=== PATIENT | female | born 1945 | race Caucasian/White ===

== ENCOUNTER 2019-08-08 02:34 | Emergency (ER) | payer MEDICARE, OTHER ==
[2019-08-08 03:22] LABS: #Basophils 0.2 thou/uL (0.0-0.2); #Eosinphils 0.3 thou/uL (0.0-0.7); #Monocytes 0.3 thou/uL (0.11-0.59); #Neutrophils 4.9 thou/uL (1.40-6.50); %Basophils 2.7 % (0.0-1.0); %Eosinophils 4.4 % (0.0-10.0); %Lymphocytes 15.5 % (21.0-51.0); %Neutrophils 72.5 % (42.0-75.0); Hemoglobin 11.1 g/dL (12.0-16.0); MDiff Complete? YES; Macrocytosis MODERATE=16-30 cells (100X) (0-5/hpf); Mean Corpuscular HGB CONC 33.2 g/dL (32.0-36.0); Mean Corpuscular Hemoglobin 35.8 pg (27.0-31.0); Mean Platelet Volume 9.9 fL (7.4-10.4); Platelet Count 86 thou/uL (130-400); Platelet Morphology Comment Appears Decreased; RBC Distribution Width 13.5 % (11.5-14.5); Red Blood Cell (RBC) Count 3.09 mill/uL (4.20-5.40); White Blood Cell (WBC) Count 6.7 thou/uL (4.8-10.8)
[2019-08-08 03:33] LABS: ALT (SGPT) 10 U/L (8-55); AST (SGOT) 41 U/L (5-34); Albumin 2.5 g/dL (3.4-4.8); Alkaline Phosphatase 61 U/L (40-110); Anion Gap 15 mmol/L (10-20); BUN (Urea Nitrogen) 21 mg/dL (9.8-20.1); Bilirubin, Total 0.5 mg/dL (0.2-1.2); Calc. Creatinine Clearance 0 mL/min (70-130); Calcium 7.9 mg/dL (7.8-10.44); Carbon Dioxide 20 mmol/L (23-31); Chloride 104 mmol/L (98-107); Estimated GFR-MDRD 28; Globulin 3.1 g/dL (2.4-3.5); Glucose 85 mg/dL (83-110); Potassium 3.5 mmol/L (3.5-5.1); Protein, Total 5.6 g/dL (6.0-8.3); Sodium 135 mmol/L (136-145)
[2019-08-08 03:34] LABS: Bilirubin Negative (Negative); Blood, Urine Negative (Negative); Clarity Clear (Clear); Glucose, Urine (Dipstick) Normal (Negative); Leukocyte Negative Leu/uL (Negative); Nitrite Negative (Negative); Protein, Urine (Dipstick) Negative (Neg-Trace); Urobilinogen Normal mg/dL (Less than 2)
--- NOTE | 2019-08-08 07:58 | RAD ---
XR Chest 1 View Portable HISTORY: Weakness and lethargy COMPARISON: 03/24/2016 FINDINGS: The heart size is normal. The lungs are well expanded without focal areas of consolidation, pneumothorax or pleural effusions. IMPRESSION: No radiographic evidence of acute cardiopulmonary process.
== END 2019-08-08 04:16 | disposition home or self-care (01) ==
LOC: ERS 02:34
DX: I12.9 Hypertensive chronic kidney disease with stage 1 through stage 4 chronic kidney disease, or unspecified chronic kidney disease (principal); N18.9 Chronic kidney disease, unspecified; E78.5 Hyperlipidemia, unspecified; E78.00 Pure hypercholesterolemia, unspecified; R53.1 Weakness; F17.210 Nicotine dependence, cigarettes, uncomplicated; Z79.899 Other long term (current) drug therapy
CPT/HCPCS: 36415; 71045; 80053; 81003; 83880; 84484; 85025; 93005

== ENCOUNTER 2019-08-14 22:12 | Inpatient (IN) | payer MEDICARE, MEDICAID ==
--- NOTE | 2019-08-14 23:21 | CT ---
Exam: Head CT without contrast HISTORY: Intracranial hemorrhage. Status post fall. COMPARISON: 08/14/2019 FINDINGS: Hemorrhage: Redemonstration of an extra-axial hematoma along the left frontal convexity, unchanged an d measuring 0.7 cm. Overlying scalp hematoma is noted. No new parenchymal hemorrhage. Brain parenchyma: Stable atrophy. Cortical mcnally-white matter differentiation is preserved.Chronic sma ll vessel ischemic changes of the white matter are redemonstrated. Ventricular system: Stable Calvarium: Intact. Sinuses and mastoid air cells: Unchanged IMPRESSION: Essentially stable small extra-axial hematoma along the left frontal convexity. No significant change in size. No evidence of new intracranial hemorrhage. Continued surveillance is recommended. Transcribed Date/Time: 08/14/2019 11:28 PM
[2019-08-14 23:45] LABS: CKMB 2.1 ng/mL (0-6.6)
[2019-08-15] MEDS ORDERED: Sodium Chloride 0.9% 1,000 ML IV SCH (02:20)
[2019-08-15] MEDS ORDERED: Ondansetron ODT 4 MG TAB SL PRN (02:20)
[2019-08-15] MEDS ORDERED: Ondansetron PF 4 MG/2 ML Vial IVP PRN ×2 (02:20→03:35)
[2019-08-15] MEDS ORDERED: Ondansetron ODT 4 MG TAB PO PRN (03:35)
[2019-08-15] MEDS: Sodium Chloride 0.9% 1,000 ML IV SCH ×2 (03:57→16:25)
--- NOTE | 2019-08-15 08:36 | HP ---
PRIMARY CARE PROVIDER: Previously, Nicki Gonzalez MD CHIEF COMPLAINT: Generalized weakness and skin nodules. HISTORY OF PRESENT ILLNESS: This is a 74-year-old female, who initially presented to [facility] in [place], [place], complaining of generalized weakness, fatigue, and loss of appetite over the last 2 to 3 weeks. The patient was evaluated in the emergency room on 08/14/2019 and released home. The patient was told to follow up with her primary care provider, however, the patient states her symptoms progressed with profound weakness, inability to get out of a chair and ambulate and with concern for multiple nodules on her neck and abdomen. The patient denied any headache, visual disturbance, recent fall, or injury. The patient states her appetite has decreased with some loss of weight, which is difficult to quantitate. The patient denies any exposure history, recent travel, unilateral swelling or weakness. The patient states she quit smoking approximately 2 weeks prior to this evaluation. In the emergency room, the patient underwent general metabolic evaluation showing elevated troponin I. The patient was also noted with electrolyte abnormality as well as a low carbon dioxide level. The patient was also noted with elevated creatinine above baseline values concerning for acute on chronic kidney disease. The patient was noted with mild elevation to troponin I, receiving aspirin and Lovenox for suspected non-ST elevation myocardial infarction with mild elevation to troponin I. The patient also underwent CT imaging of the brain showing small left-sided subdural hematoma. The patient also underwent CT imaging of the chest, abdomen, and pelvis in the emergency room showing diffuse and extensive lymphadenopathy with questionable right breast edema and mass. Recommendations are for further evaluation including Medical Oncology evaluation. PAST MEDICAL HISTORY: 1. Chronic kidney disease, stage 2 to 3. 2. History of ischemic colitis. 3. Deconditioning. 4. Diverticulosis. 5. Hyperlipidemia. 6. Hypertension. PAST SURGICAL HISTORY: Status post hysterectomy. CURRENT MEDICATIONS: 1. Amlodipine 5 mg p.o. daily. 2. Clonidine 0.2 mg p.o. b.i.d. 3. Lovastatin 20 mg p.o. q.a.m. 4. Metoprolol tartrate 25 mg p.o. b.i.d. 5. Protonix 40 mg p.o. daily. ALLERGIES: TO HE INHIBITORS. FAMILY HISTORY: No inheritable diseases per the patient report. SOCIAL HISTORY: Resides in the [place], [place] area. No current alcohol, tobacco, or illicit drug use. Quit smoking approximately 2 weeks prior to this evaluation. History of prior marijuana and methamphetamine use. Minimally ambulatory due to profound weakness. No reported falls. REVIEW OF SYSTEMS: CONSTITUTIONAL: Negative for weight loss or gain, ability to conduct usual activities. SKIN: Negative for rash, itching. EYES: Negative for double vision, pain. ENT/MOUTH: Negative for nose bleeding, neck stiffness, pain, tenderness. CARDIOVASCULAR: Negative for palpitations, dyspnea on exertion, orthopnea. RESPIRATORY: Negative for shortness of breath, wheezing, cough, hemoptysis, fever or night sweats. GASTROINTESTINAL: Negative for poor appetite, abdominal pain, heartburn, nausea, vomiting, constipation, or diarrhea. GENITOURINARY: Negative for urgency, frequency, dysuria, nocturia. MUSCULOSKELETAL: Negative for pain, swelling. NEUROLOGIC/PSYCHIATRIC: Negative for anxiety, depression. ALLERGY/IMMUNOLOGIC: Negative for skin rash, bleeding tendency. Otherwise, negative except as stated per HPI. PHYSICAL EXAMINATION: VITAL SIGNS: On admission, blood pressure 90/56, pulse 66, respiratory rate 22, O2 saturation 97% on room air, and temperature 97.7 degrees Fahrenheit. GENERAL APPEARANCE: This is a 74-year-old female, pale, ill appearing, responsive to questions. HEENT: Pupils are equal, round, and reactive to light and accommodation. Extraocular muscles are intact. No scleral icterus. No conjunctival injection. Nares patent. OP is clear. Oral mucosa dry. NECK: Supple. Bilateral cervical adenopathy with large lymphadenopathy palpated at the base of the occiput to the anterior and lateral chains. No meningeal signs noted. CHEST: Diminished breath sounds in the bases bilaterally. CARDIOVASCULAR: S1 and S2 without noted murmur, rub, or gallop. ABDOMEN: Rounded with diffuse tenderness to palpation. No palpable mass. No rebound or guarding noted. EXTREMITIES: Warm and dry with fair turgor. No clubbing, cyanosis, or asymmetric edema appreciated. Pulses palpable distally at the dorsalis pedis, posterior tibial, and popliteal arteries bilaterally. Capillary refill less than 2 seconds. NEUROLOGIC: Cranial nerves II through XII are grossly intact. No focal or lateralizing signs appreciated. PERTINENT LABORATORY AND X-RAY FINDINGS: Sodium 135, potassium 4.1, chloride 101, CO2 of 16, BUN 29, creatinine 2.11, estimated GFR 23, glucose 99, magnesium level 1.9, AST 49, ALT of 17, and alkaline phosphatase 65. Troponin I ranged between 0.122 to 0.148. BNP 252, previously noted 235 on 08/08/2019. CBC showed a white blood cell count of 9.4, hemoglobin 12, hematocrit 36, MCV 104, and platelet count 71. PT 13.5, INR 1.0. Urinalysis dated 08/14/2019, positive for protein and ketones. Portable chest x-ray dated 08/14/2019, showed small right pleural effusion. CT of the chest, abdomen, and pelvis dated 08/14/2019, showed extensive lymphadenopathy in the chest, abdomen, and pelvis. The diminished changes in the right breast concerning for inflammatory breast cancer. Small right-sided pleural effusion. Please see dictated report for full details. CT of the brain without contrast dated 08/14/2019, showed left frontal extra-axial hematoma with minimal mass effect on the left frontal lobe. ASSESSMENT AND PLAN: 1. Subdural hemorrhage. Appears acute on initial CT imaging. Neurosurgery consulted, however, will evaluate the patient in the a.m. Neurosurgery recommending serial CT imaging of the brain to monitor for progression. Appears clinically spontaneous. 2. Elevated troponin I. Suspect demand ischemic state in the context of acute kidney injury. 3. Acute kidney injury on chronic kidney disease. Continue intravenous normal saline at 100 mL/h. Avoid nephrotoxic agents and limit contrast exposure. Repeat creatinine in the a.m. 4. Left frontal subdural hematoma. Questionable spontaneous hematoma. No history of falls. Neurosurgical consultation for assistance and monitoring. Likely, no acute surgical intervention. 5. Diffuse lymphadenopathy. Findings concerning for potential metastatic process versus lymphoma. Consult Medical Oncology Service for any further recommendations and evaluation. Likely, the patient would benefit from lymph node biopsy. 6. Deconditioning. PT and OT evaluation for functional assessment. Continue regular diet. 7. Prophylaxis. SCDs while in bed. Pepcid 20 mg p.o. b.i.d. 8. Code status is full. Surrogate medical decision maker, not identified. Job ID: [id number]
[2019-08-15] MEDS: Famotidine 20 MG TAB PO SCH (09:25)
--- NOTE | 2019-08-15 10:32 | PDOC.HOSPP ---
- Subjective Subjective: Lying down comfortably in bed. Denies any headache, visual changes, focal changes. States lymph nodes started becoming enlarged on neck for the last couple of weeks. - Objective Vital Signs & Weight: Vital Signs (12 hours) Temp 08/15/19 08:00 98.1 F 08/15/19 04:00 98.0 F 08/15/19 02:15 97.7 F Weight Weight 145 lb 4.554 oz Most Recent Monitor Data Heart Rate from ECG 67 NIBP 106/63 NIBP BP-Mean 77 Respiration from ECG 21 SpO2 96 I&O: 08/14/19 08/15/19 08/16/19 06:59 06:59 06:59 Intake Total 295 280 Output Total 0 380 Balance 295 -100 Additional Labs: Laboratory Results 08/14/19 22:54 CK-MB (CK-2) 2.1 Troponin I 0.122 H Radiology Reviewed by me: Yes EKG Reviewed by me: Yes Hospitalist ROS - Review of Systems Constitutional: denies: fever, chills, sweats, weakness, malaise, other Eyes: denies: pain, vision change, conjunctivae inflammation, eyelid inflammation, redness, other ENT: denies: ear pain, ear discharge, nose pain, nose discharge, nose congestion , mouth pain, mouth swelling, throat pain, throat swelling, other Respiratory: denies: cough, dry, shortness of breath, hemoptysis, SOB with excertion, pleuritic pain, sputum, wheezing, other Cardiovascular: denies: chest pain, palpitations, orthopnea, paroxysmal noc. dyspnea, edema, light headedness, other Gastrointestinal: denies: nausea, vomiting, abdominal pain, diarrhea, constipation, melena, hematochezia, other Genitourinary: denies: dysuria, frequency, incontinence, hematuria, retention, other Musculoskeletal: denies: neck pain, shoulder pain, arm pain, back pain, hand pain, leg pain, foot pain, other - Medication Medications: Active Medications Generic Name Dose Route Start Last Admin Trade Name Freq PRN Reason Stop Dose Admin Famotidine 20 mg 08/15/19 09:00 08/15/19 09:25 Pepcid PO 20 mg QAM JONG Administration Sodium Chloride 1,000 mls @ 100 mls/hr 08/15/19 03:35 08/15/19 03:57 Normal Saline 0.9% IV Not Given .Q10H [facility] Medication Instructions Recorded Confirmed Type Amlodipine Besylate [amLODIPine 10 mg PO DAILY 03/24/16 08/15/19 History Besylate] Lovastatin 20 mg PO QAM-WM 03/24/16 08/15/19 History Metoprolol Tartrate 25 mg PO BID 03/24/16 08/15/19 History cloNIDine HCl 0.2 mg PO BID 03/24/16 08/15/19 History [place]-3 Fatty Acids/Fish Oil [Fish 1 cap PO DAILY 08/15/19 08/15/19 History Oil 1,000 mg Capsule] hydrALAZINE [Apresoline] 25 mg PO TID 08/15/19 08/15/19 History - Exam General Appearance: NAD, awake alert Eye: PERRL, anicteric sclera ENT: normocephalic atraumatic, no oropharyngeal lesions, moist mucosa Neck: supple, symmetric, no JVD, no thyromegaly, no carotid bruit Neck - other findings: Palpable bilateraly lymphadenopathy in cervical superior and posterior bindu Heart: RRR, no murmur, no gallops, no rubs, normal peripheral pulses Respiratory: CTAB, no wheezes, no rales, no ronchi, normal chest expansion, no tachypnea, normal percussion Gastrointestinal: soft, non-tender, non-distended, normal bowel sounds, no palpable masses, no hepatomegaly, no splenomegaly, no bruit Extremities: no cyanosis, no clubbing, no edema Skin: normal turgor, no lesions, no rashes Neurological: cranial nerve grossly intact, normal sensation to touch, no weakness, no focal deficits, no new deficit Musculoskeletal: normal tone, normal strength, no muscle wasting Psychiatric: normal affect, normal behavior, A&O x 3 Hosp A/P (1) Subdural hemorrhage Code(s): I62.00 - NONTRAUMATIC SUBDURAL HEMORRHAGE, UNSPECIFIED Status: Acute (2) Elevated troponin Code(s): R79.89 - OTHER SPECIFIED ABNORMAL FINDINGS OF BLOOD CHEMISTRY Status : Acute Plan: Likely related to renal failure, no active chest pain at this time (3) Lymphadenopathy Code(s): R59.1 - GENERALIZED ENLARGED LYMPH NODES Status: Acute Plan: New onset for the past few weeks, located along chest, abdomen, and cervical chains (CT RECORD IN THE CHART) (4) Acute kidney injury superimposed on CKD Code(s): N17.9 - ACUTE KIDNEY FAILURE, UNSPECIFIED; N18.9 - CHRONIC KIDNEY DISEASE, UNSPECIFIED Status: Acute (5) Anemia in chronic kidney disease Code(s): N18.9 - CHRONIC KIDNEY DISEASE, UNSPECIFIED; D63.1 - ANEMIA IN CHRONIC KIDNEY DISEASE Status: Acute (6) Hypertension Code(s): I10 - ESSENTIAL (PRIMARY) HYPERTENSION Status: Chronic (7) Atrial fibrillation with RVR Code(s): I48.91 - UNSPECIFIED ATRIAL FIBRILLATION Status: Acute - Plan Outside Ct scan for Nayely reviewed by me, shows extensive lymphadenopathy in the chest, abdomen, and pelvis. Will see if this report can be uploaded to our record system There is mention of edematous change in the right breast, which is concerning for inflammatory breast CA. CT head showsing extra-axial 0.7cm hematoma Pending further evaluation by oncology and neurosurgery. Will likely need some sort lymph node biopsy, but given her recent hematoma on CT head will wait and continue to monitor Resume home amlodipine Continue IVF Digoxin given for afib, consult to cardiology for further reccs. Disposition: Continue monitoring in CCU. Appreciate reccs from neurosurg and oncology.
[2019-08-15] MEDS ORDERED: Digoxin 0.5 MG/2 ML AMP SLOW IVP SCH (12:15)
[2019-08-15] MEDS: Acetaminophen 500 MG TAB PO PRN (12:41)
--- NOTE | 2019-08-15 14:26 | PRG ---
DATE OF SERVICE: 08/15/2019 This is a 30-minute initial visit note, in which 30 minutes were spent reviewing the imaging record, evaluation, examination of the patient, and formulation of plan. Greater than 50% time was spent in counseling on Maylin Jon. Ms. Jon is a very pleasant 74-year-old woman. She reports no history of recent trauma to the head, although she presents with a left frontal subgaleal hematoma that is tender to touch and underlying small left frontal convexity acute subdural hematoma. This was stable on repeat head CTs yesterday. I had requested a CT this morning although it is not back yet at this time. There is no underlying skull fracture. The patient again denies trauma, but I am not quite convinced of her historical accuracy. She is neurologically intact, but appears to be quite frail. There are other issues that are being evaluated based on CT scan of the chest, abdomen, pelvis yesterday as the patient was found to have extensive lymphadenopathy throughout her chest and abdomen, and also changes in the right breast worrisome for breast cancer. I suppose the lesion in her scalp could be breast metastasis if that is what we are dealing with. MRI of the brain without and with contrast would help in this regard, although it certainly has the appearance, given the underlying subdural hematoma of recent trauma. At this point, she has atrial fibrillation with rapid ventricular response. She is not currently hemodynamically stable enough for MRI. We will hold off on any further imaging. Job ID: [id number]
[2019-08-15] MEDS ORDERED: Sodium Chloride 0.9% 500 ML IVPB SCH (14:30)
--- NOTE | 2019-08-15 14:37 | CON ---
DATE OF CONSULTATION: REASON FOR EVALUATION: Possible subdural hematoma. HISTORY OF PRESENT ILLNESS: Maylin Jon was seen at the [facility] yesterday after progressive weeks of decreased appetite and decreased energy, feelings of imbalance and unintended weight loss. Head CT examination of the brain was done along with other imaging and there was a collection of material in the subdural space anterior to the left frontal lobe as well as a subgaleal collection of tissue or fluid under the left frontal scalp. Neurosurgery was consulted and she was sent to [facility] for further evaluation. Overnight, she has remained at her neurological baseline. Although, she got a dose of Lovenox at [facility]. She has not had any blood thinners since. Overnight, her vital signs do not reveal any fever. Her blood pressures have been in the 80s to 100s. On examination, Ms. Jon is wide awake. She answers questions appropriately. She remembers why she came to the hospital. She remembers her name and the year, her age, and where she lives. Cognitive function is relatively well preserved and her speech is fluent. I do not appreciate any dysarthria or dysphasia. I do not appreciate any cranial neuropathies. Although, there is a diffused and generalized weakness. There is no lateralized weakness. There is no pronator drift. There is no neglect. I did not get her up to walk. She does perform alternating rapid motions smoothly with both hands. IMAGING FINDINGS: I reviewed CT imaging of the brain and there is no change between the outside CT scan at 7:00 p.m. and one done in our hospital at 11:00 p.m. In fact, the collection of tissue and/or fluid might be slightly smaller, although I do not think it is. The subgaleal collection is the same. A CT examination of the chest, abdomen, and pelvis shows diffuse lymphadenopathy in the neck, in the supraclavicular and infraclavicular space, in the chest, in the mediastinum, in the abdomen, in the pelvis and inflammatory changes in the breast suggestive of the possibility of inflammatory breast cancer. IMPRESSION: 1. Subdural collection of tissue/fluid. 2. Diffuse metastatic cancer with poor prognosis. I do not believe that Ms. Jon has a subdural hematoma. She gives no history of trauma. She is tender over the mass under her scalp, but it is not ecchymotic as though she had recently bumped her head. I believe the subgaleal mass and the subdural collection of tissue or metastases from an inflammatory breast cancer. Breast cancer is one (like prostate cancer) that metastasizes to the dura from [id number]. I do not see any intraparenchymal lesions. There has been no change even with the administration of Lovenox and no history of recent trauma. Given the diffuse nature of this cancer, I think the prognosis is poor, but I will defer to the oncologist. Whatever systemic therapy is offered for her ought to treat dural-based metastasis as it is not the same as the parenchymal metastasis regarding the blood-brain barrier. Further, I think radiation therapy could be palliative as well. I do not believe any neurosurgical intervention would enhance her life. Please feel free to call back with questions. Job ID: [id number]
--- NOTE | 2019-08-15 15:47 | CON ---
DATE OF CONSULTATION: 08/15/2019 This is a 70 minutes time, of that time, greater than 50% was spent with the patient and/or the patient's unit in the hospital. HISTORY OF PRESENT ILLNESS: This is a 74-year-old female, who was admitted yesterday with increasing weakness and had a knot on her left temporal area. She does not remember falling and actually does not have any bruises around the area. She says she has been feeling weak for 2 to 3 weeks. She had a CT scan done showing diffuse adenopathy in her abdomen, a possible suppurative breast mass on the right. PAST MEDICAL HISTORY: 1. Chronic kidney disease. 2. Ischemic colitis. 3. Deconditioning. 4. Diverticulosis. 5. Hyperlipidemia. 6. Hypertension. PAST SURGICAL HISTORY: Hysterectomy. MEDICATIONS: Prior to admission; 1. Amlodipine. 2. Klonopin. 3. Lovastatin. 4. Metoprolol. 5. Protonix. ALLERGIES: HE INHIBITORS. FAMILY MEDICAL HISTORY: Unremarkable. SOCIAL HISTORY: Quit smoking 2 weeks ago. Has history of marijuana and methamphetamine use in the past, not currently using. REVIEW OF SYSTEMS: Remarkable for weakness. No nausea, vomiting, hematemesis, melena, hematochezia, hematuria, or dysuria. PHYSICAL EXAMINATION: VITAL SIGNS: Temperature 98.1, pulse 70, blood pressure 106/63, and O2 saturation 96%. HEENT: She has a golf ball size knot in left occipital-temporal region. NECK: No adenopathy or JVD. Pupils are reactive. Tongue midline. LUNGS: Clear. CARDIAC: S1 and S2. Regular. ABDOMEN: Soft. EXTREMITIES: No edema. Moves all 4 extremities without difficulty. LABORATORY DATA: Troponin 0.122. White blood cell count 9.4, hematocrit 36.2, and platelet count 71. INR 1.0. Sodium 135, potassium 4.1, chloride 101, CO2 of 16, anion gap 18, BUN 29, creatinine 2.1, glucose 99, AST 49, and ALT 17. Troponin 0.122. Albumin 2.8. Urinalysis shows some ketones in the urine. ASSESSMENT: 1. Possible fall with injury to the head with small subdural hematoma. 2. Diffuse lymphadenopathy. 3. Thrombocytopenia. 4. Mild metabolic acidosis. 5. Severe protein-calorie malnutrition. PLAN: Basically supportive with further workup per Internal Medicine. From my standpoint, she can transfer out to the floor. No pulmonary recommendations at this time. Job ID: [id number]
[2019-08-15] MEDS: Dronedarone HCl 400 MG TAB PO SCH (17:45)
--- NOTE | 2019-08-15 19:16 | CON ---
DATE OF CONSULTATION: REASON FOR CONSULTATION: Atrial fibrillation. HISTORY OF PRESENT ILLNESS: Please refer to Dr. Michell Reddy's for full consultation for details. Briefly, Ms. Jon re-presented with weakness and fatigue. She was found to have likely dural mass present. This was initially felt to be consistent with a subdural hematoma, but was refuted by Neurosurgery. She was also found to have significant lymphadenopathy and likely breast cancer. She has developed paroxysmal atrial fibrillation. During my visit, she was in sinus rhythm. PHYSICAL EXAMINATION: GENERAL: Patient is a pleasant woman, who is in no acute distress. The patient appears her stated age. VITAL SIGNS: Blood pressure 96/56, pulse 68, temperature afebrile. NEUROLOGIC: The patient is alert and oriented x3 with no focal neurologic deficits. HEENT: Sclerae without icterus. Mouth has moist mucous membranes with normal pallor. NECK: No JVD. Carotid upstroke brisk. No bruits bilaterally. LUNGS: Clear to auscultation with unlabored respirations. BACK: No scoliosis or kyphosis. CARDIAC: Regular rate and rhythm with normal S1 and S2. No S3 or S4 noted. No significant rubs, murmurs, thrills, or gallops noted throughout the precordium. PMI is not displaced. There is no parasternal heave. ABDOMEN: Soft, nontender, nondistended. No peritoneal signs present. No hepatosplenomegaly. No abnormal striae. EXTREMITIES: 2+ femoral and 2+ dorsalis pedis pulses. No cyanosis, clubbing, or edema. SKIN: No gross abnormalities. LABORATORY DATA: Peak troponin 0.12. IMPRESSION: 1. Paroxysmal atrial fibrillation. 2. Widespread cancer of unknown etiology, likely breast. 3. Elevated troponin. RECOMMENDATIONS: Ms. Jon'bishop increased troponin likely secondary to demand ischemia. This is a type 2 [place]. We would recommend Multaq 400 mg p.o. b.i.d. We will hold anticoagulation therapy until further discussions with Dr. Carcamo. Prognosis does appear poor given the above. Job ID: [id number]
[2019-08-15] MEDS: Metoprolol Tartrate 25 MG TAB PO SCH (21:08)
--- NOTE | 2019-08-15 22:14 | CON ---
DATE OF CONSULTATION: HISTORY OF PRESENT ILLNESS: A 74-year-old female presented with a history of several weeks of increasing weakness, fatigue, and weight loss. In the outside emergency department, she was found to have diffuse lymphadenopathy with concern for inflammatory breast cancer found on CT. She was additionally noted to have a subdural collection on head CT, and Neurosurgery has been consulted. They seem to believe this is not a subdural hematoma and is rather metastatic changes. We were consulted for management of atrial fibrillation. Today, the patient has been in atrial fibrillation with RVR with rate up to 138 recorded. She is currently in normal sinus rhythm and seems to fluctuate. Current rate is 70. She was given one dose of digoxin earlier today in addition to a 500 mL bolus. The patient denies any feelings of palpitations, chest pain, nausea, vomiting, difficulty breathing, or shortness of breath. She notes feeling tired and weak. PAST MEDICAL HISTORY: Difficult to obtain from patient, but on review of medical records, 1. Hypertension. 2. Hyperlipidemia. 3. Deconditioning. 4. Chronic kidney disease. 5. History of ischemic colitis. 6. Peripheral vascular disease. SURGICAL HISTORY: Hysterectomy. ALLERGIES: HE INHIBITORS. FAMILY HISTORY: Unremarkable. SOCIAL HISTORY: Prior smoker, quit 3 weeks ago. Former marijuana and methamphetamine use. Denies alcohol use. REVIEW OF SYSTEMS: Noted as above, reviewed and otherwise negative. PHYSICAL EXAMINATION: VITAL SIGNS: Blood pressure 87/54, heart rate 70, respiratory rate 20, O2 saturation 95% on room air. GENERAL: Well-developed woman, in no acute distress, weak. HEENT: Normocephalic, atraumatic, lymphadenopathy palpable. HEART: Regular rate and rhythm, no murmur. RESPIRATORY: Clear to auscultation bilaterally. EXTREMITIES: No peripheral edema or cyanosis. LABORATORY: BNP of 251, troponin 0.122, creatinine 2.11. ASSESSMENT AND PLAN: Paroxysmal atrial fibrillation. The patient appears to be intermittently going in and out of atrial fibrillation. Continue metoprolol b.i.d. In addition, we will add Multaq twice daily as well. I will continue to monitor for hypotension. Echocardiogram has just been completed and will be reviewed. In regard to anticoagulation, we will not start at this time considering questionable subdural collection. We will continue to follow the patient throughout hospitalization. This patient was seen and evaluated by Dr. Sow and is in agreement and plan as noted above. Job ID: [id number]
--- NOTE | 2019-08-15 22:59 | CON ---
DATE OF CONSULTATION: 08/15/2019 REASON FOR CONSULT: Lymphadenopathy and possible breast cancer. HISTORY OF PRESENT ILLNESS: Ms. Jon is a pleasant 74-year-old female, who presented to the [facility] ER with generalized weakness. She underwent a chest, abdomen, and pelvis in the ER. She had an enlarged right paratracheal lymph node measuring 1.9 x 0.8 cm. There was a right necrotic supraclavicular lymph node measuring 2.4 x 4.1 cm. She had right axillary lymph nodes. She had diffuse edema involving her right breast. She had a small left lower lobe nodule, some right hilar lymphadenopathy. She also had lymphadenopathy throughout her abdomen and pelvis. She underwent a brain CT as she had a palpable nodule on her left scalp. This was a small extra-axial hematoma along the left frontal convexity. She was admitted here for hematoma and generalized weakness. Neurosurgery was consulted. The patient states she did hit her head six or seven months ago on a corner of her bed, and she thinks that is where her knot on her head came from. She admits that her breast has been hurting her for the last month or so. She quit smoking three weeks ago because she did not like the taste of it any longer. She states she has lost about 7 pounds in the last several months. Her last mammogram was five years ago. She has had a colonoscopy in the past, she does not remember how long ago that was. The patient is in the ICU on evaluation. She denies any complaints at this time other than weakness. PAST MEDICAL HISTORY: 1. Chronic kidney disease. 2. History of colitis. 3. Diverticulitis. 4. Hyperlipidemia. 5. Hypertension. 6. History of alcohol use. 7. History of tobacco use. PAST SURGICAL HISTORY: Hysterectomy. ALLERGIES: TO HE INHIBITORS. HOME MEDICATIONS: 1. Amlodipine. 2. Clonidine. 3. Hydralazine. 4. Lovastatin. 5. Metoprolol. FAMILY HISTORY: No history of cancer in her immediate family. SOCIAL HISTORY: Single, has 4 children. She says she is estranged from them. Quit smoking three weeks ago. Quit drinking alcohol 3 years ago. No illicit drug use. REVIEW OF SYSTEMS: A 10-point review of systems is negative except for noted in HPI. PHYSICAL EXAMINATION: VITAL SIGNS: Temperature is 98.0, pulse is 70, respiratory rate 20, blood pressure is 87/54. She is 95% on 2L. GENERAL: This is an elderly-appearing female in no acute distress. HEENT: She has a left frontal mass. Her pupils are equal and reactive to light. NECK: She has palpable supraclavicular lymph nodes in right neck region. CV: Regular rate and rhythm. LUNGS: Clear anterior. ABDOMEN: Soft and nontender. Bowel sounds are positive. EXTREMITIES: There is no clubbing or cyanosis. SKIN: Her right breast is edematous with peu d'orange skin changes. There is no palpable mass with clear margins. Left breast is soft. No skin changes. NEUROLOGIC: Nonfocal. LYMPH: She has right supraclavicular and right axillary palpable lymph nodes. PERTINENT LABS AND X-RAYS: Current WBCs are 9.4, hemoglobin 11.6, hematocrit 36.2, platelet count is 71,000, neutrophils 94%, 1% lymphocytes, PT is 13.5, INR is 1. Sodium 135, potassium 4.1, chloride 101, CO2 is 16, BUN is 29, creatinine 2.11, calcium 8.9, magnesium 1.9, bilirubin 0.45, AST is 49, ALT is 17, alkaline phosphatase is 65. Troponin is 0.122. BNP is 251.8. Serum total protein is 5.9, albumin 2.8, globulin 3.1. Urine showed 4+ bacteria. Radiology per HPI. ASSESSMENT: 1. Right supraclavicular and axillary lymph nodes with skin changes of her right breast, worrisome for inflammatory breast cancer. 2. Lymphadenopathy, worrisome for lymphoma. 3. Thrombocytopenia likely secondary to malignancy. 4. Subdural hematoma, stable. DISCUSSION: The patient is aware of the findings of diffuse lymphadenopathy that are worrisome for malignancy. We discussed tissue biopsy of lymph node and treatment. She understands that if this is a breast cancer, it may require chemotherapy. She is not interested in IV chemotherapy but will consider oral treatment. She would like a biopsy. If she is hormone receptor positive, she could get anastrozole orally. Ibrance may also be an option. Case discussed with Dr. Hatfield. Consult with a general surgeon for biopsy of a lymph node. We will return once tissue diagnosis is established. Thank you for the consult. Job ID: [id number] [facility]
[2019-08-16 04:03] LABS: #Lymphocytes 0.9 thou/uL (1.20-3.40); #Monocytes 0.2 thou/uL (0.11-0.59); #Neutrophils 9.1 thou/uL (1.40-6.50); %Basophils 0.4 % (0.0-1.0); %Eosinophils 0.3 % (0.0-10.0); %Lymphocytes 8.7 % (21.0-51.0); %Monocytes 1.7 % (0.0-10.0); %Neutrophils 88.9 % (42.0-75.0); Hemoglobin 9.4 g/dL (12.0-16.0); Mean Corpuscular HGB CONC 32.9 g/dL (32.0-36.0); Mean Corpuscular Hemoglobin 34.8 pg (27.0-31.0); Mean Platelet Volume 9.4 fL (7.4-10.4); Platelet Count 73 thou/uL (130-400); RBC Distribution Width 13.4 % (11.5-14.5); White Blood Cell (WBC) Count 10.3 thou/uL (4.8-10.8)
[2019-08-16 04:13] LABS: ALT (SGPT) 12 U/L (8-55); AST (SGOT) 36 U/L (5-34); Albumin 2.1 g/dL (3.4-4.8); Alkaline Phosphatase 53 U/L (40-110); Anion Gap 13 mmol/L (10-20); BUN (Urea Nitrogen) 29 mg/dL (9.8-20.1); Bilirubin, Total 0.4 mg/dL (0.2-1.2); Calc. Creatinine Clearance 33 mL/min (70-130); Calcium 7.3 mg/dL (7.8-10.44); Carbon Dioxide 14 mmol/L (23-31); Chloride 111 mmol/L (98-107); Estimated GFR-MDRD 32; Globulin 2.7 g/dL (2.4-3.5); Glucose 76 mg/dL (83-110); Potassium 3.3 mmol/L (3.5-5.1); Protein, Total 4.8 g/dL (6.0-8.3); Sodium 135 mmol/L (136-145)
[2019-08-16] MEDS: Sodium Chloride 0.9% 1,000 ML IV SCH ×3 (05:58→20:36)
[2019-08-16] MEDS: Famotidine 20 MG TAB PO SCH (08:19)
[2019-08-16] MEDS: Dronedarone HCl 400 MG TAB PO SCH ×2 (08:19→18:13)
[2019-08-16] MEDS: Metoprolol Tartrate 25 MG TAB PO SCH ×2 (08:19→20:37)
--- NOTE | 2019-08-16 09:56 | PRG ---
DATE OF SERVICE: 08/16/2019 SUBJECTIVE: Somewhat confused, does not appear to be in any distress. She went into atrial fibrillation yesterday. She was converted back to sinus rhythm. OBJECTIVE: VITAL SIGNS: Temperature 98.1, pulse 69, blood pressure 81/51, and O2 saturation 95%. HEENT: Remarkable for the left parietal hematoma. NECK: No JVD. CHEST: Clear anteriorly. CARDIAC: S1 and S2. Regular. ABDOMEN: Soft. EXTREMITIES: Right arm is swollen. LABORATORY DATA: White blood cell count 10.3, hematocrit 28.5, and platelet count 73. Sodium 135, potassium 3.3, chloride 111, CO2 of 14, BUN 29, creatinine 1.6, and glucose 76. ASSESSMENT: 1. Left parietal hematoma presumably from trauma, but could be a breast cancer metastasis. 2. Presumed breast cancer. 3. Severe protein-calorie malnutrition. 4. Atrial fibrillation. PLAN: She is a candidate for transfer to telemetry unit from my standpoint. She has made herself a DNAR. Further investigation per Oncology and Internal Medicine teams. Job ID: [id number]
--- NOTE | 2019-08-16 11:02 | PDOC.HOSPP ---
- Subjective Subjective: Complaint of neck pain today. She has tender lymph nodes present there. Otherwise no overnight events. Afib is now rate controlled. - Objective Vital Signs & Weight: Vital Signs (12 hours) Temp Pulse Ox 08/16/19 08:00 98.1 F 08/16/19 07:54 96 08/16/19 04:00 98.3 F 08/16/19 02:53 97 08/16/19 00:00 98.2 F Weight Admit Weight 145 lb Weight 145 lb 4.554 oz Most Recent Monitor Data Heart Rate from ECG 71 NIBP 89/59 NIBP BP-Mean 69 Respiration from ECG 20 SpO2 97 I&O: 08/15/19 08/16/19 08/17/19 06:59 06:59 06:59 Intake Total 295 3052 330 Output Total 0 1352 390 Balance 295 1700 -60 Result Diagrams: 08/16/19 03:33 08/16/19 03:33 Hospitalist ROS - Review of Systems All other systems reviewed; all pertinent +/- noted in HPI/Subj - Medication Medications: Active Medications Generic Name Dose Route Start Last Admin Trade Name Freq PRN Reason Stop Dose Admin Acetaminophen 1,000 mg 08/15/19 03:35 08/15/19 12:41 Tylenol PO 1,000 mg Q6H PRN Administration Mild Pain (1-3) Dronedarone 400 mg 08/15/19 17:00 08/16/19 08:19 Multaq PO 400 mg BID-WM JONG Administration Famotidine 20 mg 08/15/19 09:00 08/16/19 08:19 Pepcid PO 20 mg QAM JONG Administration Sodium Chloride 1,000 mls @ 100 mls/hr 08/15/19 03:35 08/16/19 05:58 Normal Saline 0.9% IV 1,000 mls .Q10H JONG Administration Metoprolol Tartrate 25 mg 08/15/19 21:00 08/16/19 08:19 Lopressor PO Not Given BID JONG Sodium Chloride 10 ml 08/15/19 21:00 08/16/19 08:19 Flush - Normal Saline IVF 10 ml Q12HR JONG Administration - Exam General Appearance: NAD, awake alert, ill appearing General - other findings: Frail, elderly Eye: PERRL, anicteric sclera ENT: normocephalic atraumatic, no oropharyngeal lesions, moist mucosa Neck: supple, symmetric, no JVD, no thyromegaly, no lymphadenopathy, no carotid bruit Neck - other findings: Palpable lymph node chain on right and left neck Heart: RRR, no murmur, no gallops, no rubs, normal peripheral pulses Respiratory: CTAB, no wheezes, no rales, no ronchi, normal chest expansion, no tachypnea, normal percussion Gastrointestinal: soft, non-tender, non-distended, normal bowel sounds, no palpable masses, no hepatomegaly, no splenomegaly, no bruit Extremities: no cyanosis, no clubbing, no edema Skin: normal turgor, no lesions, no rashes Neurological: cranial nerve grossly intact, normal sensation to touch, no weakness, no focal deficits, no new deficit Musculoskeletal: normal tone, normal strength, no muscle wasting Psychiatric: normal affect, normal behavior, A&O x 3 Hosp A/P (1) Subdural hemorrhage Code(s): I62.00 - NONTRAUMATIC SUBDURAL HEMORRHAGE, UNSPECIFIED Status: Acute (2) Elevated troponin Code(s): R79.89 - OTHER SPECIFIED ABNORMAL FINDINGS OF BLOOD CHEMISTRY Status : Acute (3) Lymphadenopathy Code(s): R59.1 - GENERALIZED ENLARGED LYMPH NODES Status: Acute (4) Acute kidney injury superimposed on CKD Code(s): N17.9 - ACUTE KIDNEY FAILURE, UNSPECIFIED; N18.9 - CHRONIC KIDNEY DISEASE, UNSPECIFIED Status: Acute (5) Anemia in chronic kidney disease Code(s): N18.9 - CHRONIC KIDNEY DISEASE, UNSPECIFIED; D63.1 - ANEMIA IN CHRONIC KIDNEY DISEASE Status: Acute (6) Hypertension Code(s): I10 - ESSENTIAL (PRIMARY) HYPERTENSION Status: Chronic (7) Atrial fibrillation with RVR Code(s): I48.91 - UNSPECIFIED ATRIAL FIBRILLATION Status: Acute - Plan Outside Ct scan for Nayely reviewed by me, shows extensive lymphadenopathy in the chest, abdomen, and pelvis. Will see if this report can be uploaded to our record system There is mention of edematous change in the right breast, which is concerning for inflammatory breast CA. CT head showsing extra-axial 0.7cm hematoma? This could be mass as well. Pending MRI studies Appreciate oncology and neurosugery reccs Will likely need some sort lymph node biopsy, gen surg has been consulted Resume home amlodipine D/c IVF for afib, consult to cardiology for further reccs, they have resrtared multaq and metoprolol Rate controlled today, can transfer to telemetry Disposition: Continue monitoring in CCU. Appreciate reccs from neurosurg and oncology. Pending MRI and biopsy.
--- NOTE | 2019-08-16 11:14 | PDOC.CPN ---
- Subjective Date: 08/16/19 Time: 11:13 Interval history: Pt in SR Echo felt to be hypercontractile (>65%) On BB, multaq - Objective Allergies/Adverse Reactions: Allergies Allergy/AdvReac Type Severity Reaction Status Date / Time HE Inhibitors Allergy Verified 08/15/19 02:59 Visit Medications: Current Medications Acetaminophen (Tylenol) 1,000 mg PO Q6H PRN PRN Reason: Mild Pain (1-3) Last Admin: 08/15/19 12:41 Dose: 1,000 mg Dronedarone (Multaq) 400 mg PO BID-WM [facility] Last Admin: 08/16/19 08:19 Dose: 400 mg Famotidine (Pepcid) 20 mg PO QAM [facility] Last Admin: 08/16/19 08:19 Dose: 20 mg Sodium Chloride (Normal Saline 0.9%) 1,000 mls @ 100 mls/hr IV .Q10H [facility] Last Admin: 08/16/19 05:58 Dose: 1,000 mls Metoprolol Tartrate (Lopressor) 25 mg PO BID [facility] Last Admin: 08/16/19 08:19 Dose: Not Given Ondansetron HCl (Zofran Odt) 4 mg PO Q6H PRN PRN Reason: Nausea/Vomiting Ondansetron HCl (Zofran) 4 mg IVP Q6H PRN PRN Reason: Nausea/Vomiting Sodium Chloride (Flush - Normal Saline) 10 ml IVF Q12HR [facility] Last Admin: 08/16/19 08:19 Dose: 10 ml Sodium Chloride (Flush - Normal Saline) 10 ml IVF PRN PRN PRN Reason: Saline Flush Tramadol HCl (Ultram) 50 mg PO Q6H PRN PRN Reason: Moderate Pain (4-6) Vital Signs & Weight: Vital Signs Temp Pulse Ox 08/16/19 08:00 98.1 F 08/16/19 07:54 96 08/16/19 04:00 98.3 F 08/16/19 02:53 97 08/16/19 00:00 98.2 F Admit Weight 145 lb Weight 145 lb 4.554 oz - Physical Exam General: alert & oriented x3 HEENT: mucus membranes moist Neck: supple neck Cardiac: regular rate and rhythm Lungs: clear to auscultation Neuro: cranial nerve 2-12 intact - Labs Result Diagrams: 08/16/19 03:33 08/16/19 03:33 Troponin/CKMB CK-MB (CK-2) 2.1 ng/mL (0-6.6) 08/14/19 22:54 Troponin I 0.122 ng/mL (< 0.028) H 08/14/19 22:54 - Diagnostic MRI Status: other (reviewed findings) - Telemetry Sinus rhythms and dysrhythmias: sinus rhythm - Assessment/Plan Assessment/Plan: PAF ?subdural hematoma Likey metastaic breast cancer In SR On BB, multaq Given echo, given IVF. IVF EF >65%. Appears underfilled Continue IVF
[2019-08-16] MEDS ORDERED: Magnevist 469MG/ML 20 ML VIAL ONE (11:15)
[2019-08-16] MEDS: traMADol HCl 50 MG TAB PO PRN (11:24)
--- NOTE | 2019-08-16 12:50 | MRI ---
EXAM: MRI of the brain without and with contrast HISTORY: Fall with left extra-axial mass COMPARISON: CT brain 08/14/2019 TECHNIQUE: Multiplanar multisequence MR images were obtained of the brain without and with IV contras t. FINDINGS: There are a few scattered foci of high T2/FLAIR signal in the subcortical and periventricular white m atter. There is a and area of focal thickening of the dura up to 7 mm in the region where the abnormality is seen on CT. No definite extra-axial blood is appreciated as there is no blooming on th e gradient sequence and no signal abnormality on the FLAIR sequence. No restricted diffusion. No hydronephrosis. The expected flow voids are present. Corpus callosum, pituitary, and craniocervical junction are within normal limits. A hematoma seen along the left parietal scalp. Fluid is seen in the right mastoid air cells. The paranasal sinuses and left mastoid air cells are we ll aerated. IMPRESSION: 1. No evidence of acute intracranial abnormality. 2. Nonspecific focal thickening of the left parietal dura versus small meningioma. This exam was discussed with Dr. Fajardo who presents the findings and impression.
[2019-08-16] MEDS ORDERED: Sodium Chloride 0.9% 250 ML IVPB SCH (13:00)
[2019-08-16] MEDS ORDERED: Potassium Chloride 20 MEQ TAB PO PRN (13:24)
[2019-08-16] MEDS ORDERED: Magnesium 2 GM/50 ML 2 GM in Premix Bag 1 BAG IVPB PRN (13:24)
[2019-08-16] MEDS ORDERED: Potassium Phosphate 15 MMOL in Sodium Chloride 0.9% 250 ML 250 ML IV PRN (13:24)
[2019-08-16] MEDS ORDERED: PHOS-NAK 1 PKT PACK PO PRN ×2 (13:24)
[2019-08-16] MEDS ORDERED: Potassium Phosphate 9 MMOL in Sodium Chloride 0.9% 100 ML IVPB PRN (13:24)
[2019-08-16] MEDS ORDERED: Potassium Chloride 40 MEQ in Sodium Chloride 0.9% 250 ML 250 ML IVPB PRN (13:24)
[2019-08-16] MEDS ORDERED: Magnesium Oxide 400 MG TAB PO PRN ×2 (13:24)
[2019-08-16] MEDS ORDERED: Potassium Phosphate 12 MMOL in Sodium Chloride 0.9% 250 ML 250 ML IV PRN (13:24)
[2019-08-16] MEDS ORDERED: Potassium Chloride 40 MEQ in Premix Bag 1 BAG IVPB PRN (13:24)
[2019-08-16] MEDS ORDERED: CCU ELECTROLYTE REPLACEMENT PROTOCOL FS PRN (13:24)
[2019-08-17] MEDS: Metoprolol Tartrate 25 MG TAB PO SCH (09:03)
[2019-08-17] MEDS: Acetaminophen 500 MG TAB PO PRN (09:10)
[2019-08-17] MEDS: Famotidine 20 MG TAB PO SCH (09:11)
[2019-08-17] MEDS: Dronedarone HCl 400 MG TAB PO SCH ×2 (09:12→16:51)
[2019-08-17] MEDS: Sodium Chloride 0.9% 1,000 ML IV SCH ×2 (09:12→16:51)
--- NOTE | 2019-08-17 12:30 | PRG ---
DATE OF SERVICE: 08/17/2019 This is Cornell Bauer PA-C dictating a report for Abdi Carcamo MD. SUBJECTIVE: This is a 50-minute subsequent patient evaluation, of which greater than 50% of the exam was spent in counseling and coordinating the patient's care, remainder of the exam was spent in reviewing the patient's medical record and reviewing appropriate imaging studies. Dr. Carcamo and I have reviewed the patient's brain MRI that she had yesterday. There does appear to be pachymeningeal enhancement in the left parietal lobe with bone and subgaleal enhancement signifying likely metastatic breast cancer. There does not appear to be any subdural hemorrhage. At this time, there is no role for neurosurgical intervention. The patient, should she and her family wish to proceed, would benefit from likely chemotherapy and radiation. We will allow our medical colleagues in our Oncology team to help direct this. I have discussed the findings with the patient and she understands. Neurologically, she complains of intermittent posterior neck pain, but denies headache. She denies nausea, vomiting, or dizziness. OBJECTIVE: On physical exam, she is able to follow commands in all extremities. Her speech is clear and coherent. She is oriented to year and that she is in the hospital. IMPRESSION AND PLAN: At this time, Neurosurgery will sign off as there is no indication for any type of surgery. We appreciate the consult. Please call with any changes in the patient's neurologic status or any questions in the patient's care. Job ID: [id number]
--- NOTE | 2019-08-17 12:32 | PRG ---
DATE OF SERVICE: 08/17/2019 I reviewed Ms. Jon's MRI of the brain without and with contrast. Unfortunately, she has pachymeningeal enhancement with dural thickening and skull and subgaleal thickening as well consistent with breast carcinoma. I would not recommend any surgical intervention. Job ID: [id number]
--- NOTE | 2019-08-17 14:51 | PDOC.HOSPP ---
- Objective Vital Signs & Weight: Vital Signs (12 hours) Temp Pulse Resp BP Pulse Ox 08/17/19 11:14 98.1 F 70 16 77/49 L 94 L 08/17/19 08:00 98.2 F 73 13 80/50 L 96 08/17/19 04:00 98.2 F 68 20 75/46 L 93 L Weight Admit Weight 145 lb Weight 145 lb 4.554 oz Most Recent Monitor Data Heart Rate from ECG 68 NIBP 93/57 NIBP BP-Mean 69 Respiration from ECG 18 SpO2 96 I&O: 08/16/19 08/17/19 08/18/19 06:59 06:59 06:59 Intake Total 3052 2446 420 Output Total 1352 1420 Balance 1700 1026 420 Result Diagrams: 08/16/19 03:33 08/16/19 03:33 Hospitalist ROS - Medication Medications: Active Medications Generic Name Dose Route Start Last Admin Trade Name Freq PRN Reason Stop Dose Admin Acetaminophen 1,000 mg 08/15/19 03:35 08/17/19 09:10 Tylenol PO 1,000 mg Q6H PRN Administration Mild Pain (1-3) Dronedarone 400 mg 08/15/19 17:00 08/17/19 09:12 Multaq PO 400 mg BID-WM JONG Administration Famotidine 20 mg 08/15/19 09:00 08/17/19 09:11 Pepcid PO Not Given QAM JONG Sodium Chloride 1,000 mls @ 100 mls/hr 08/15/19 03:35 08/17/19 09:12 Normal Saline 0.9% IV 1,000 mls .Q10H JONG Administration Metoprolol Tartrate 25 mg 08/15/19 21:00 08/17/19 09:03 Lopressor PO Not Given BID JONG Potassium Chloride 40 meq 08/16/19 13:24 08/16/19 13:34 K-Dur PO 40 meq ASDIR PRN Administration FOR SERUM K+ 2.5 - 3.5 Sodium Chloride 10 ml 08/15/19 21:00 08/17/19 09:12 Flush - Normal Saline IVF Not Given Q12HR JONG Tramadol HCl 50 mg 08/16/19 11:03 08/16/19 11:24 Ultram PO 50 mg Q6H PRN Administration Moderate Pain (4-6) Hosp A/P (1) Brain mass Code(s): G93.89 - OTHER SPECIFIED DISORDERS OF BRAIN Status: Acute Plan: Initially thought to be subdural on previous imaging, MRI suggestive of enhancement, possible brain mass (2) Lymphadenopathy Code(s): R59.1 - GENERALIZED ENLARGED LYMPH NODES Status: Acute (3) Suspected malignant neoplasm Code(s): R68.89 - OTHER GENERAL SYMPTOMS AND SIGNS Status: Acute Plan: Palpable lymph nodes, CT imaging positive, suggestive primary breast CA (4) Elevated troponin Code(s): R79.89 - OTHER SPECIFIED ABNORMAL FINDINGS OF BLOOD CHEMISTRY Status : Acute (5) Acute kidney injury superimposed on CKD Code(s): N17.9 - ACUTE KIDNEY FAILURE, UNSPECIFIED; N18.9 - CHRONIC KIDNEY DISEASE, UNSPECIFIED Status: Acute (6) Anemia in chronic kidney disease Code(s): N18.9 - CHRONIC KIDNEY DISEASE, UNSPECIFIED; D63.1 - ANEMIA IN CHRONIC KIDNEY DISEASE Status: Acute (7) Hypertension Code(s): I10 - ESSENTIAL (PRIMARY) HYPERTENSION Status: Chronic (8) Atrial fibrillation with RVR Code(s): I48.91 - UNSPECIFIED ATRIAL FIBRILLATION Status: Acute - Plan Outside Ct scan for Nayely reviewed by me, shows extensive lymphadenopathy in the chest, abdomen, and pelvis. There is mention of edematous change in the right breast, which is concerning for inflammatory breast CA. CT head showsing extra-axial 0.7cm hematoma? This is more likely a mass as seen on MRI. Discussed with neurosurg and agreement this is more likely metastatic lesion Appreciate oncology and neurosugery reccs Will likely need some sort lymph node biopsy, gen surg has been consulted Resume home amlodipine for afib, consult to cardiology for further reccs, they have resrtared multaq and metoprolol Rate controlled today Disposition: Discussed with patient about strong possibilty of metastatic disease. She would like to obtain a biopsy of lymph node before making other decisions. Gen surg will see her tomorrow for planning.
[2019-08-18] MEDS: Sodium Chloride 0.9% 1,000 ML IV SCH ×3 (02:34→23:02)
[2019-08-18 04:54] LABS: #Basophils 0.1 thou/uL (0.0-0.2); #Eosinphils 0.1 thou/uL (0.0-0.7); #Lymphocytes 1.2 thou/uL (1.20-3.40); #Monocytes 0.2 thou/uL (0.11-0.59); #Neutrophils 9.9 thou/uL (1.40-6.50); %Basophils 1.1 % (0.0-1.0); %Eosinophils 0.5 % (0.0-10.0); %Lymphocytes 10.4 % (21.0-51.0); %Monocytes 1.5 % (0.0-10.0); %Neutrophils 86.5 % (42.0-75.0); Hemoglobin 9.4 g/dL (12.0-16.0); Mean Corpuscular HGB CONC 33.9 g/dL (32.0-36.0); Mean Corpuscular Hemoglobin 35.9 pg (27.0-31.0); Mean Platelet Volume 8.7 fL (7.4-10.4); Platelet Count 71 thou/uL (130-400); RBC Distribution Width 13.1 % (11.5-14.5); Red Blood Cell (RBC) Count 2.61 mill/uL (4.20-5.40); White Blood Cell (WBC) Count 11.5 thou/uL (4.8-10.8)
[2019-08-18 05:12] LABS: Anion Gap 12 mmol/L (10-20); BUN (Urea Nitrogen) 24 mg/dL (9.8-20.1); Calc. Creatinine Clearance 36 mL/min (70-130); Calcium 7.2 mg/dL (7.8-10.44); Carbon Dioxide 14 mmol/L (23-31); Chloride 110 mmol/L (98-107); Estimated GFR-MDRD 36; Potassium 3.4 mmol/L (3.5-5.1); Sodium 133 mmol/L (136-145)
[2019-08-18 05:14] LABS: Glucose 59 mg/dL (83-110)
--- NOTE | 2019-08-18 06:58 | PDOC.CPN ---
- Subjective Date: 08/18/19 Time: 10:08 - Objective Allergies/Adverse Reactions: Allergies Allergy/AdvReac Type Severity Reaction Status Date / Time HE Inhibitors Allergy Verified 08/15/19 02:59 Visit Medications: Current Medications Acetaminophen (Tylenol) 1,000 mg PO Q6H PRN PRN Reason: Mild Pain (1-3) Last Admin: 08/17/19 09:10 Dose: 1,000 mg Dronedarone (Multaq) 400 mg PO BID-[facility] Last Admin: 08/17/19 16:51 Dose: 400 mg Famotidine (Pepcid) [facility] [place] [place] Admin: 08/17/19 09:11 Dose: Not Given Sodium Chloride (Normal Saline 0.9%) 1,000 mls @ 100 mls/hr IV .Q10H [facility] Last Admin: 08/18/19 02:34 Dose: 1,000 mls Potassium Chloride 40 meq/ (Sodium Chloride) 270 mls @ 135 mls/hr IVPB ASDIR PRN PRN Reason: FOR SERUM K+ 2.5 - 3.5 Potassium Chloride 40 meq/ (Device) 100 mls @ 50 mls/hr IVPB ASDIR PRN PRN Reason: FOR SERUM K+ 2.5 - 3.5 Magnesium Sulfate 1 gm/ Sodium (Chloride) 102 mls @ 102 mls/hr IV PRN PRN PRN Reason: MAG LEVEL 1.4 - 2.0 Magnesium Sulfate 2 gm/ Device 50 mls @ 50 mls/hr IVPB ASDIR PRN PRN Reason: MAGNESIUM < 1.4 Potassium Phosphate 9 mmol/ (Sodium Chloride) 103 mls @ 25.75 mls/hr IVPB ASDIR PRN PRN Reason: Phosphate 1.0-1.8 Potassium Phosphate 12 mmol/ (Sodium Chloride) 254 mls @ 63.5 mls/hr IV ASDIR PRN PRN Reason: Serum phosphate 0.5-0.9 Potassium Phosphate 15 mmol/ (Sodium Chloride) 255 mls @ 63.75 mls/hr IV ASDIR PRN PRN Reason: Serum Phos < 0.5 Magnesium Oxide (Magnesium Oxide) 400 mg PO BIDPRN PRN PRN Reason: FOR SERUM MAG 1.4 - 2.0 Magnesium Oxide (Magnesium Oxide) 800 mg PO PRN PRN PRN Reason: FOR SERUM MAG < 1.4 Miscellaneous Medication (Phos-Nak) 1 pkt PO TIDPRN PRN PRN Reason: FOR PHOS LEVEL 1.0 - 1.8 Miscellaneous Medication (Phos-Nak) 2 pkt PO TIDPRN PRN PRN Reason: FOR PHOS LEVEL 0.5 - 1.0 Ccu Electrolyte (Replacement Protocol) 0 each FS PRN PRN PRN Reason: FOR ELECTROLYTE REPLACEMENT Ondansetron HCl (Zofran Odt) 4 mg PO Q6H PRN PRN Reason: Nausea/Vomiting Ondansetron HCl (Zofran) 4 mg IVP Q6H PRN PRN Reason: Nausea/Vomiting Potassium Chloride (K-Dur) 40 meq PO ASDIR PRN PRN Reason: FOR SERUM K+ 2.5 - 3.5 Last Admin: 08/16/19 13:34 Dose: 40 meq Potassium Chloride (Klor-Con) 40 meq PER TUBE ASDIR PRN PRN Reason: FOR SERUM K+ 2.5-3.5 Sodium Chloride (Flush - Normal Saline) 10 ml IVF Q12HR JONG Last Admin: 08/17/19 22:09 Dose: Not Given Sodium Chloride (Flush - Normal Saline) 10 ml IVF PRN PRN PRN Reason: Saline Flush Tramadol HCl (Ultram) 50 mg PO Q6H PRN PRN Reason: Moderate Pain (4-6) Last Admin: 08/16/19 11:24 Dose: 50 mg Vital Signs & Weight: Vital Signs Temp Pulse Resp BP Pulse Ox 08/18/19 04:00 98 F 70 20 90/54 L 93 L 08/18/19 00:00 98.4 F 67 18 85/54 L 93 L 08/17/19 20:00 97.8 F 67 18 83/53 L 93 L Admit Weight 145 lb Weight 145 lb 4.554 oz - Physical Exam General: alert & oriented x3 Neck: supple neck Cardiac: no murmur, regular rate, regular rhythm Lungs: normal breath sounds Neuro: grossly intact - Labs Result Diagrams: 08/18/19 04:31 08/18/19 04:31 Troponin/CKMB CK-MB (CK-2) 2.1 ng/mL (0-6.6) 08/14/19 22:54 Troponin I 0.122 ng/mL (< 0.028) H 08/14/19 22:54 - Assessment/Plan Assessment/Plan: Afib Likey metasstatic breast cancer Dural mass Pt is in SR and doing well on multaq Consideration to ACT given although with recent dural mass and low platelets, will defer at this point Prognosis appears poor as well with short term risk of ACT likely higher than mortality from metastatic disease Will defer prognosis to oncology once tissue obtained PLease re-consult if changes occur Add ASA. Discussed with Neurosurgery
[2019-08-18] MEDS: Dronedarone HCl 400 MG TAB PO SCH ×2 (10:13→17:13)
[2019-08-18] MEDS: Famotidine 20 MG TAB PO SCH (10:21)
--- NOTE | 2019-08-18 12:39 | PDOC.HOSPP ---
- Subjective Subjective: lethargic, plan for sux bx today, pt anxious when that would be done. care d/w RN. - Objective Vital Signs & Weight: Vital Signs (12 hours) Temp Pulse Pulse Pulse Resp BP BP 08/18/19 11:20 97.3 F L 71 20 08/18/19 10:15 75 08/18/19 10:12 73 87 87/51 L 104/63 08/18/19 07:47 98.1 F 67 20 08/18/19 04:00 98 F 70 20 BP Pulse Ox 08/18/19 11:20 85/54 L 95 08/18/19 10:15 90/52 L 94 L 08/18/19 10:12 08/18/19 07:47 89/50 L 91 L 08/18/19 04:00 90/54 L 93 L Weight Admit Weight 145 lb Weight 145 lb 4.554 oz Most Recent Monitor Data Heart Rate from ECG 68 NIBP 93/57 NIBP BP-Mean 69 Respiration from ECG 18 SpO2 96 I&O: 08/17/19 08/18/19 08/19/19 06:59 06:59 06:59 Intake Total 2446 1814 Output Total 1420 700 Balance 1026 1114 Result Diagrams: 08/18/19 04:31 08/18/19 04:31 Additional Labs: Accuchecks 08/18/19 08/18/19 06:44 05:22 POC Glucose 95 72 Hospitalist ROS - Medication Medications: Active Medications Generic Name Dose Route Start Last Admin Trade Name Freq PRN Reason Stop Dose Admin Acetaminophen 1,000 mg 08/15/19 03:35 08/17/19 09:10 Tylenol PO 1,000 mg Q6H PRN Administration Mild Pain (1-3) Dronedarone 400 mg 08/15/19 17:00 08/18/19 10:13 Multaq PO 400 mg BID-WM JONG Administration Famotidine 20 mg 08/15/19 09:00 08/18/19 10:21 Pepcid PO 20 mg QAM JONG Administration Sodium Chloride 1,000 mls @ 100 mls/hr 08/15/19 03:35 08/18/19 02:34 Normal Saline 0.9% IV 1,000 mls .Q10H JONG Administration Potassium Chloride 40 meq 08/16/19 13:24 08/16/19 13:34 K-Dur PO 40 meq ASDIR PRN Administration FOR SERUM K+ 2.5 - 3.5 Sodium Chloride 10 ml 08/15/19 21:00 08/18/19 10:11 Flush - Normal Saline IVF Not Given Q12HR JONG Tramadol HCl 50 mg 08/16/19 11:03 08/16/19 11:24 Ultram PO 50 mg Q6H PRN Administration Moderate Pain (4-6) - Exam General Appearance: awake alert, ill appearing Eye: PERRL, anicteric sclera Neck: symmetric Heart: RRR Respiratory: CTAB, no wheezes Gastrointestinal: soft, non-distended, normal bowel sounds Extremities: no edema Neurological: no focal deficits Hosp A/P - Plan old records reviewed/req (1) Brain mass (2) Lymphadenopathy (3) Suspected malignant neoplasm Outside Ct scan for Nayely reviewed by prior provider, shows extensive lymphadenopathy in the chest, abdomen, and pelvis. - edematous change in the right breast, which is concerning for inflammatory breast CA. CT head showsing extra-axial 0.7cm hematoma? This is more likely a mass as seen on MRI. - followed by oncology and neurosugery reccs - gen surg has been consulted - poss breast bx. (4) Elevated troponin-type II (5) Acute kidney injury superimposed on CKD (6) Anemia in chronic kidney disease -stable (7) Hypertension -norvasc -controlled. (8) Atrial fibrillation with RVR - resrtared on multaq and metoprolol -cardiology following.
[2019-08-19 05:35] LABS: Anion Gap 10 mmol/L (10-20); BUN (Urea Nitrogen) 22 mg/dL (9.8-20.1); Calc. Creatinine Clearance 40 mL/min (70-130); Calcium 7.2 mg/dL (7.8-10.44); Carbon Dioxide 15 mmol/L (23-31); Chloride 112 mmol/L (98-107); Estimated GFR-MDRD 40; Glucose 63 mg/dL (83-110); Potassium 3.1 mmol/L (3.5-5.1); Sodium 134 mmol/L (136-145)
[2019-08-19 05:43] LABS: Band 9 % (5-11); Hemoglobin 9.1 g/dL (12.0-16.0); Hypochromia SLIGHT = 6-15 cells (100X) (0-5/hpf); Lymphocytes 14 % (21-51); MDiff Complete? YES; Macrocytosis SLIGHT = 6-15 cells (100X) (0-5/hpf); Mean Corpuscular HGB CONC 33.7 g/dL (32.0-36.0); Mean Corpuscular Hemoglobin 35.1 pg (27.0-31.0); Mean Platelet Volume 8.8 fL (7.4-10.4); Monocytes 1 % (0-10); Neutrophil 76 % (42-75); Platelet Count 61 thou/uL (130-400); Platelet Morphology Comment Appears Decreased; RBC Distribution Width 13.3 % (11.5-14.5); Red Blood Cell (RBC) Count 2.59 mill/uL (4.20-5.40); White Blood Cell (WBC) Count 10.5 thou/uL (4.8-10.8)
--- NOTE | 2019-08-19 08:26 | CON ---
DATE OF CONSULTATION: 08/18/2019 CHIEF COMPLAINT: Swollen right breast with multiple adenopathies. HISTORY OF PRESENT ILLNESS: The patient is a 74-year-old female, who was admitted on August 12 with complaints of fatigue, weakness. She was found to have diffuse lymphadenopathy in the left axilla, supraclavicular area, hilar adenopathy, [place]-pancreatic lymph nodes, and the common iliac chain, also noted on CT scan was that her right breast was edematous and worrisome for inflammatory breast cancer. The patient's last mammogram was about 5 years ago. PAST MEDICAL HISTORY: Significant for chronic renal insufficiency, ischemic colitis, deconditioning, diverticulosis, hyperlipidemia, hypertension, chronic subdural hematoma, which she says she did have a fall couple of weeks ago, striking her head. PAST SURGERIES: Include hysterectomy. MEDICATIONS: 1. Amlodipine. 2. Klonopin. 3. Lovastatin. 4. Metoprolol. 5. Protonix. ALLERGIES: SHE IS ALLERGIC TO HE INHIBITORS. FAMILY HISTORY: She has no family history of breast cancer. SOCIAL HISTORY: She lives in [place]. She recently quit smoking. No alcohol. PHYSICAL EXAMINATION: VITAL SIGNS: Temperature 97, pulse 71, blood pressure is 85/54. GENERAL: She is very frail, looks older than stated age, very lethargic. HEENT: She has palpable nodes in the cervical chain in supraclavicular region. LUNGS: Clear. BREASTS: She has edema to the lateral aspect of the right breast. I do not feel a definite mass. There is some lymphadenopathy both axilla. I do not feel any masses on the left. HEART: Regular rate and rhythm. ABDOMEN: Soft, nondistended, nontender. EXTREMITIES: Her right arm is edematous. ASSESSMENT: Diffuse adenopathy with PLAN: Mammogram. Core biopsy if something is found. If nothing found, recommend lymph node biopsy. Job ID: [id number]
[2019-08-19] MEDS: Dronedarone HCl 400 MG TAB PO SCH ×2 (08:58→17:53)
[2019-08-19] MEDS ORDERED: Aspirin 325 MG TAB PO SCH (09:00)
[2019-08-19] MEDS: Sodium Chloride 0.9% 1,000 ML IV SCH ×2 (10:09→23:35)
[2019-08-19] MEDS: Famotidine 20 MG TAB PO SCH (10:32)
[2019-08-19] MEDS ORDERED: Potassium Chloride 20 MEQ TAB PO SCH (11:15)
--- NOTE | 2019-08-19 12:44 | PRG ---
DATE OF SERVICE: 08/19/2019 The patient denies any pain. On examination, she has pretty prominent lymph nodes in right supraclavicular area. Temperature is 97.9, pulse 72, blood pressure is only 80/50. ASSESSMENT: This patient has multiple very serious medical issues. She has cardiomyopathy with hypotension. She has chronic renal insufficiency. She has hypotension. She has subdural hematoma. I cannot safely put her under anesthesia to do a biopsy of these supraclavicular nodes. I called Radiology about doing a mammogram. Unfortunately, there is no mammogram machine at this hospital. The machine is across the parking lot and she is not stable enough to transfer over there for mammogram to try and do a breast biopsy. So, at this point, supportive measures. If we are able to get her a little healthier, perhaps we can put her under anesthesia to do a biopsy of one of these lymph nodes; however, Oncology may not be able to do much as far as chemotherapy based on her other medical problems. Job ID: [id number]
--- NOTE | 2019-08-19 13:43 | PDOC.HOSPP ---
- Subjective Subjective: pt looked fragile. Talk to sux, it appears there may not be breast lump, and if needed, have to get it from [facility] and followed by core bx, if mass do present. Talk to the CM and pt cannot be sent from here but can be done as outpt. i discussed at length with the patient about overall poor prognosis and uncertain whether having breast biopsy would change the prognosis. Pt understands and leaning towards less care but she is going to think baout it. she lives with sig. other at home. Palliative consult has been placed 2 days prior. Placing OT consult and possible SNF vs.. rehab. - Objective Vital Signs & Weight: Vital Signs (12 hours) Temp Pulse Resp BP Pulse Ox 08/19/19 11:52 97.9 F 72 18 82/51 L 94 L 08/19/19 07:56 97.5 F L 70 18 83/52 L 93 L 08/19/19 04:00 98.4 F 75 16 80/52 L 92 L Weight Admit Weight 145 lb Weight 145 lb 4.554 oz Most Recent Monitor Data Heart Rate from ECG 68 NIBP 93/57 NIBP BP-Mean 69 Respiration from ECG 18 SpO2 96 I&O: 08/18/19 08/19/19 08/20/19 06:59 06:59 06:59 Intake Total 1814 120 120 Output Total 700 Balance 1114 120 120 Result Diagrams: 08/19/19 04:40 08/19/19 04:40 Hospitalist ROS - Medication Medications: Active Medications Generic Name Dose Route Start Last Admin Trade Name Freq PRN Reason Stop Dose Admin Acetaminophen 1,000 mg 08/15/19 03:35 08/17/19 09:10 Tylenol PO 1,000 mg Q6H PRN Administration Mild Pain (1-3) Dronedarone 400 mg 08/15/19 17:00 08/19/19 08:58 Multaq PO 400 mg BID-WM JONG Administration Famotidine 20 mg 08/15/19 09:00 08/19/19 10:32 Pepcid PO Not Given QAM JONG Sodium Chloride 1,000 mls @ 100 mls/hr 08/15/19 03:35 08/19/19 10:09 Normal Saline 0.9% IV 1,000 mls .Q10H JONG Administration Potassium Chloride 40 meq 08/16/19 13:24 08/16/19 13:34 K-Dur PO 40 meq ASDIR PRN Administration FOR SERUM K+ 2.5 - 3.5 Sodium Chloride 10 ml 08/15/19 21:00 08/19/19 08:58 Flush - Normal Saline IVF 10 ml Q12HR JONG Administration Tramadol HCl 50 mg 08/16/19 11:03 08/16/19 11:24 Ultram PO 50 mg Q6H PRN Administration Moderate Pain (4-6) - Exam General Appearance: NAD, awake alert Eye: PERRL Neck: supple, symmetric, no JVD Heart: RRR, no murmur Respiratory: CTAB Gastrointestinal: soft, normal bowel sounds Neurological: no focal deficits Hosp A/P - Plan old records reviewed/req (1) Brain mass (2) Lymphadenopathy (3) Suspected malignant neoplasm Outside Ct scan for Nayely reviewed by prior provider, shows extensive lymphadenopathy in the chest, abdomen, and pelvis. - edematous change in the right breast, which is concerning for inflammatory breast CA. CT head showsing extra-axial 0.7cm hematoma? This is more likely a mass as seen on MRI. - followed by oncology and neurosugery reccs - breast bx is not done. -appreciate sux input. [see below] (4) Elevated troponin-type II (5) Acute kidney injury superimposed on CKD (6) Anemia in chronic kidney disease -stable (7) Hypertension -norvasc -controlled. (8) Atrial fibrillation with RVR - resrtared on multaq and metoprolol -cardiology following. Hypokalemia -being replaced. Talk to sux, it appears there may not be breast lump, and if needed, have to get it from [facility] and followed by core bx, if mass do present. Talk to the CM and pt cannot be sent from here but can be done as outpt. i discussed at length with the patient about overall poor prognosis and uncertain whether having breast biopsy would change the prognosis. Pt understands and leaning towards less care but she is going to think baout it. she lives with sig. other at home. Palliative consult has been placed 2 days prior. Placing OT consult and possible SNF vs.. rehab.
[2019-08-19] MEDS ORDERED: Potassium Citrate 10 MEQ TAB PO SCH (13:45)
[2019-08-19 15:24] LABS: Potassium 3.5 mmol/L (3.5-5.1)
[2019-08-19] MEDS ORDERED: Diphenoxylate HCl/Atropine Tablet PO PRN (18:09)
[2019-08-20] MEDS ORDERED: Sodium Chloride 0.9% 500 ML IV SCH ×2 (02:45→09:30)
[2019-08-20 04:44] LABS: Anion Gap 11 mmol/L (10-20); BUN (Urea Nitrogen) 20 mg/dL (9.8-20.1); Calc. Creatinine Clearance 39 mL/min (70-130); Calcium 7.1 mg/dL (7.8-10.44); Carbon Dioxide 14 mmol/L (23-31); Chloride 112 mmol/L (98-107); Estimated GFR-MDRD 39; Glucose 70 mg/dL (83-110); Magnesium 1.4 mg/dL (1.6-2.6); Potassium 3.7 mmol/L (3.5-5.1); Sodium 133 mmol/L (136-145)
[2019-08-20 04:58] LABS: Band 9 % (5-11); Eosinophils 1 % (0-10); Hemoglobin 8.4 g/dL (12.0-16.0); Lymphocytes 21 % (21-51); MDiff Complete? YES; Mean Corpuscular HGB CONC 33.7 g/dL (32.0-36.0); Mean Corpuscular Hemoglobin 34.9 pg (27.0-31.0); Mean Platelet Volume 7.7 fL (7.4-10.4); Metamyelocyte 3 % (0-0); Myelocyte 1 % (0-0); Neutrophil 65 % (42-75); Nucleated RBC 1 % (0); Platelet Count 42 thou/uL (130-400); Platelet Morphology Comment Appears Decreased; RBC Distribution Width 13.5 % (11.5-14.5); Red Blood Cell (RBC) Count 2.41 mill/uL (4.20-5.40); White Blood Cell (WBC) Count 9.9 thou/uL (4.8-10.8)
--- NOTE | 2019-08-20 05:01 | PDOC.EVN ---
Event Note - Event Note Event Note: BP low, slightly more than previous, has been low since admission, asymptomatic , will give albumin and check lactic acid gave IVF but only caused worsening overload so held. follow up BP after albumin in AM and notify sound if not improved
[2019-08-20] MEDS: Albumin 25% 25 GM/100 ML BOT IVPB SCH ×2 (05:11→15:33)
[2019-08-20 05:31] LABS: Lactic Acid 2.7 mmol/L (0.5-2.2)
[2019-08-20] MEDS: Dronedarone HCl 400 MG TAB PO SCH ×2 (09:25→18:19)
[2019-08-20] MEDS: Famotidine 20 MG TAB PO SCH (09:26)
[2019-08-20] MEDS ORDERED: Sodium Bicarb 50 MEQ/50 ML VIAL IVP SCH (09:30)
[2019-08-20] MEDS ORDERED: Magnesium 2 GM/50 ML 2 GM in Premix Bag 1 BAG IVPB SCH (09:45)
[2019-08-20] MEDS ORDERED: Potassium Chloride 20 MEQ TAB PO SCH (11:15)
[2019-08-20] MEDS ORDERED: Furosemide 20 MG/2 ML VIAL SLOW IVP PRN (11:46)
[2019-08-20] MEDS ORDERED: Sodium Chloride 0.9% 250 ML 250 ML IVPB PRN (11:47)
--- NOTE | 2019-08-20 11:53 | PDOC.HOSPP ---
- Subjective Subjective: pt has sig wheezing, low BP since overnight, requiring small boluses, but then pulm edema with that -- systolic in 70s/60s. talk to her sig..other this am, and he is kind of expecting the not-so-good prognosis. he will meet w.. palliative this afternoon. meanwhile, explained to pt, that she would not be able to go and get the mammogram outside. Transferring to ICU -- vasopressors and escalating the care --not sure it would change the overall poor prognosis. will cw current mgmt of IVF to keep SBP>85, trial of midodrine, lasix PRN and BD for more wheezing -- on the floor, unless plan changed from palliative perspective. - Objective Vital Signs & Weight: Vital Signs (12 hours) Temp Pulse Resp BP Pulse Ox 08/20/19 09:28 71 91/50 L 08/20/19 07:43 97.9 F 67 18 77/51 L 93 L 08/20/19 04:38 60/40 L 08/20/19 04:00 97.2 F L 67 92 H 08/20/19 00:00 98 F 69 18 77/48 L 91 L Weight Admit Weight 145 lb Weight 145 lb 4.554 oz Most Recent Monitor Data Heart Rate from ECG 68 NIBP 93/57 NIBP BP-Mean 69 Respiration from ECG 18 SpO2 96 I&O: 08/19/19 08/20/19 08/21/19 06:59 06:59 06:59 Intake Total 120 2681 Output Total 190 Balance 120 2491 Result Diagrams: 08/20/19 04:23 08/20/19 04:23 Additional Labs: Accuchecks 08/20/19 08/20/19 01:37 00:59 POC Glucose 80 62 L Hospitalist ROS - Medication Medications: Active Medications Generic Name Dose Route Start Last Admin Trade Name Freq PRN Reason Stop Dose Admin Acetaminophen 1,000 mg 08/15/19 03:35 08/17/19 09:10 Tylenol PO 1,000 mg Q6H PRN Administration Mild Pain (1-3) Albumin Human 25 gm 08/20/19 06:00 08/20/19 05:11 Albumin 25% IVPB 08/20/19 14:01 25 gm Q8HR JONG Administration Diphenoxylate HCl/Atropine 2 tab 08/19/19 18:09 08/19/19 19:38 Lomotil PO 2 tab TIDPRN PRN Administration Diarrhea/Loose Stools Dronedarone 400 mg 08/15/19 17:00 08/20/19 09:25 Multaq PO 400 mg BID-WM JONG Administration Famotidine 20 mg 08/15/19 09:00 08/20/19 09:26 Pepcid PO Not Given QAM JONG Potassium Chloride 40 meq 08/16/19 13:24 08/16/19 13:34 K-Dur PO 40 meq ASDIR PRN Administration FOR SERUM K+ 2.5 - 3.5 Sodium Chloride 10 ml 08/15/19 21:00 08/20/19 09:27 Flush - Normal Saline IVF 10 ml Q12HR JONG Administration Tramadol HCl 50 mg 08/16/19 11:03 08/16/19 11:24 Ultram PO 50 mg Q6H PRN Administration Moderate Pain (4-6) - Exam General Appearance: NAD, awake alert Eye: PERRL, anicteric sclera ENT: normocephalic atraumatic Neck: supple, symmetric Heart: RRR Respiratory: rales, wheezes Gastrointestinal: non-tender, normal bowel sounds Extremities: 1+ LE edema, 2+ LE edema Extremities - other findings: right hand -- sig edema --dept Skin - other findings: skin is very fragile, paper like Hosp A/P - Plan (1) Brain mass (2) Lymphadenopathy (3) Suspected malignant neoplasm Outside Ct scan for Nayely reviewed by prior provider, shows extensive lymphadenopathy in the chest, abdomen, and pelvis. - edematous change in the right breast, which is concerning for inflammatory breast CA. CT head showsing extra-axial 0.7cm hematoma? This is more likely a mass as seen on MRI. - followed by oncology and neurosugery reccs - breast bx is not done. -appreciate sux input. [see below] (4) Elevated troponin-type II (5) Acute kidney injury superimposed on CKD (6) Anemia in chronic kidney disease -stable (7) Hypertension -norvasc -controlled. (8) Atrial fibrillation with RVR - resrtared on multaq and metoprolol -cardiology following. Hypokalemia -being replaced. Talk to sux, it appears there may not be breast lump, and if needed, have to get it from [facility] and followed by core bx, if mass do present. Talk to the CM and pt cannot be sent from here but can be done as outpt. i discussed at length with the patient about overall poor prognosis and uncertain whether having breast biopsy would change the prognosis. Pt understands and leaning towards less care but she is going to think baout it. she lives with sig. other at home. Palliative consult has been placed 2 days prior. Placing OT consult and possible SNF vs.. rehab. pt has sig wheezing, low BP since overnight, requiring small boluses, but then pulm edema with that -- systolic in 70s/60s. talk to her sig..other this am, and he is kind of expecting the not-so-good prognosis. he will meet w.. palliative this afternoon. meanwhile, explained to pt, that she would not be able to go and get the mammogram outside. Transferring to ICU -- vasopressors and escalating the care --not sure it would change the overall poor prognosis. will cw current mgmt of IVF to keep SBP>85, trial of midodrine, lasix PRN and BD for more wheezing -- on the floor, unless plan changed from palliative perspective.
[2019-08-20] MEDS ORDERED: Furosemide 20 MG/2 ML VIAL SLOW IVP SCH (12:00)
[2019-08-20] MEDS: Acetaminophen 500 MG TAB PO PRN (15:33)
[2019-08-20] MEDS: Midodrine HCl 5 MG TAB PO SCH (22:47)
[2019-08-21 05:13] LABS: Band 14 % (5-11); Hemoglobin 8.5 g/dL (12.0-16.0); Hypochromia SLIGHT = 6-15 cells (100X) (0-5/hpf); Lymphocytes 26 % (21-51); MDiff Complete? YES; Macrocytosis SLIGHT = 6-15 cells (100X) (0-5/hpf); Mean Corpuscular HGB CONC 33.9 g/dL (32.0-36.0); Mean Corpuscular Hemoglobin 34.8 pg (27.0-31.0); Mean Platelet Volume 9.3 fL (7.4-10.4); Monocytes 2 % (0-10); Neutrophil 58 % (42-75); Platelet Count 39 thou/uL (130-400); Platelet Morphology Comment Appears Decreased; RBC Distribution Width 13.6 % (11.5-14.5); Red Blood Cell (RBC) Count 2.45 mill/uL (4.20-5.40); White Blood Cell (WBC) Count 10.2 thou/uL (4.8-10.8)
[2019-08-21] MEDS: traMADol HCl 50 MG TAB PO PRN (05:35)
[2019-08-21] MEDS: Famotidine 20 MG TAB PO SCH (09:19)
[2019-08-21] MEDS: Midodrine HCl 5 MG TAB PO SCH ×2 (09:19→21:20)
[2019-08-21] MEDS: Dronedarone HCl 400 MG TAB PO SCH ×2 (09:19→17:50)
--- NOTE | 2019-08-21 11:31 | PDOC.MOPN ---
Interval History: patient states she can sit up because she gets dizzy. Poor appetite - Vital Signs Vital Signs: Vital Signs (12 hours) Temp Pulse Pulse Pulse Resp BP BP 08/21/19 10:50 70 08/21/19 09:56 70 69 90/54 L 81/49 L 08/21/19 07:55 97.4 F L 70 18 08/21/19 04:00 97.6 F 70 16 08/21/19 00:00 97.6 F 72 16 BP Pulse Ox 08/21/19 10:50 89/53 L 89 L 08/21/19 09:56 08/21/19 07:55 91/54 L 88 L 08/21/19 04:00 96/48 L 92 L 08/21/19 00:00 95/54 L 92 L Weight Admit Weight 145 lb Weight 145 lb 4.554 oz Most Recent Monitor Data Heart Rate from ECG 68 NIBP 93/57 NIBP BP-Mean 69 Respiration from ECG 18 SpO2 96 - Physical Exam General: Alert, Oriented x3, No acute distress HEENT: Atraumatic, PERRLA, EOMI, Mucous membr. moist/pink Lungs: Clear to auscultation, Normal air movement Cardiovascular: Regular rate, Normal S1, Normal S2, No murmurs, Gallops, Rubs Abdomen: Normal bowel sounds, Soft, No tenderness, No hepatospenomegaly, No masses Extremities: No clubbing, No cyanosis, No edema, Normal pulses, No tenderness/ swelling Neurological: Normal speech - Labs Result Diagrams: 08/21/19 04:24 08/20/19 04:23 Lab results: Laboratory Results - last 24 hr 08/21/19 04:44: POC Glucose 81 08/21/19 04:24: WBC 10.2, RBC 2.45 L, Hgb 8.5 L, Hct 25.2 L, MCV 103.0 H, MCH 34.8 H, MCHC 33.9, RDW 13.6, Plt Count 39 L, MPV 9.3, Neutrophils % (Manual) 58 , Band Neuts % (Manual) 14 H, Lymphocytes % (Manual) 26, Monocytes % (Manual) 2 , Hypochromia SLIGHT = 6-15 cells, Plt Morphology Comment Appears Decreased L, Macrocytosis SLIGHT = 6-15 cells Status: lab reviewed by me A/P - Problem (1) Lymphadenopathy Current Visit: Yes Code(s): R59.1 - GENERALIZED ENLARGED LYMPH NODES Status : Acute - Plan Plan: discussed her weakness in regards to diagnosis and treatment Unclear if she really understands gravity of possible diagnosis. BP remains too low for biopsy Will check flow cytometry and general tumor markers Recommend snf
--- NOTE | 2019-08-21 11:35 | PDOC.HOSPP ---
- Subjective Subjective: spend sig time to explain all her current medical conditions and futility of aggressive med mgmt. pt understands clearly. she is quite fatigued with her comorbidities. Bp in 90s. - Objective Vital Signs & Weight: Vital Signs (12 hours) Temp Pulse Pulse Pulse Resp BP BP 08/21/19 10:50 70 08/21/19 09:56 70 69 90/54 L 81/49 L 08/21/19 07:55 97.4 F L 70 18 08/21/19 04:00 97.6 F 70 16 08/21/19 00:00 97.6 F 72 16 BP Pulse Ox 08/21/19 10:50 89/53 L 89 L 08/21/19 09:56 08/21/19 07:55 91/54 L 88 L 08/21/19 04:00 96/48 L 92 L 08/21/19 00:00 95/54 L 92 L Weight Admit Weight 145 lb Weight 145 lb 4.554 oz Most Recent Monitor Data Heart Rate from ECG 68 NIBP 93/57 NIBP BP-Mean 69 Respiration from ECG 18 SpO2 96 I&O: 08/20/19 08/21/19 08/22/19 06:59 06:59 06:59 Intake Total 2681 480 Output Total 190 1200 Balance 2491 -720 Result Diagrams: 08/21/19 04:24 08/20/19 04:23 Additional Labs: Accuchecks 08/21/19 04:44 POC Glucose 81 Hospitalist ROS - Medication Medications: Active Medications Generic Name Dose Route Start Last Admin Trade Name Freq PRN Reason Stop Dose Admin Acetaminophen 1,000 mg 08/15/19 03:35 08/20/19 15:33 Tylenol PO 1,000 mg Q6H PRN Administration Mild Pain (1-3) Diphenoxylate HCl/Atropine 2 tab 08/19/19 18:09 08/19/19 19:38 Lomotil PO 2 tab TIDPRN PRN Administration Diarrhea/Loose Stools Dronedarone 400 mg 08/15/19 17:00 08/21/19 09:19 Multaq PO 400 mg BID-WM JONG Administration Famotidine 20 mg 08/15/19 09:00 08/21/19 09:19 Pepcid PO Not Given QAM JONG Midodrine 5 mg 08/20/19 21:00 08/21/19 09:19 Proamatine PO 5 mg BID JONG Administration Potassium Chloride 40 meq 08/16/19 13:24 08/16/19 13:34 K-Dur PO 40 meq ASDIR PRN Administration FOR SERUM K+ 2.5 - 3.5 Sodium Chloride 10 ml 08/15/19 21:00 08/21/19 09:20 Flush - Normal Saline IVF 10 ml Q12HR JONG Administration Tramadol HCl 50 mg 08/16/19 11:03 08/16/19 11:24 Ultram PO 50 mg Q6H PRN Administration Moderate Pain (4-6) - Exam General Appearance: ill appearing ENT: normocephalic atraumatic Neck: symmetric Heart: RRR, no murmur Respiratory: CTAB Gastrointestinal: non-tender, non-distended, normal bowel sounds Extremities - other findings: dept edema and right arm/hand more swollen, Skin - other findings: quite fragile Neurological: no focal deficits Hosp A/P - Plan (1) Brain mass (2) Lymphadenopathy (3) Suspected malignant neoplasm Outside Ct scan for N[place] reviewed by prior provider, shows extensive lymphadenopathy in the chest, abdomen, and pelvis. - edematous change in the right breast, which is concerning for inflammatory breast CA. CT head showsing extra-axial 0.7cm hematoma? This is more likely a mass as seen on MRI. - followed by oncology and neurosugery reccs - breast bx is not done. -appreciate sux input. [see below] (4) Elevated troponin-type II (5) Acute kidney injury superimposed on CKD (6) Anemia in chronic kidney disease -stable (7) Hypertension -norvasc -controlled. (8) Atrial fibrillation with RVR - resrtared on multaq and metoprolol -cardiology following. Hypokalemia -being replaced. current active issues Fall Hypotension poss. inflammatory breast cancer sig..diffuse LAD incl Supraclvicular LAD, peripancreatic LAD afib SDH CRI Talk to sux, it appears there may not be breast lump, and if needed, have to get it from [facility] and followed by core bx, if mass do present. Talk to the CM and pt cannot be sent from here but can be done as outpt. i discussed at length with the patient about overall poor prognosis and uncertain whether having breast biopsy would change the prognosis. Pt understands and leaning towards less care but she is going to think baout it. she lives with sig. other at home. Palliative consult has been placed 2 days prior[address] Pl[address] OT consult and possible SNF vs.. rehab. pt has sig wheezing, low BP since overnight, requiring small boluses, but then pulm edema with that -- systolic in 70s/60s. talk to her sig..other this am, and he is kind of expecting the not-so-good prognosis. he will meet w.. palliative this afternoon. meanwhile, explained to pt, that she would not be able to go and get the mammogram outside. Transferring to ICU -- vasopressors and escalating the care --not sure it would change the overall poor prognosis. will cw current mgmt of IVF to keep SBP>85, trial of midodrine, lasix PRN and BD for more wheezing -- on the floor, unless plan changed from palliative perspective. -onc note reviewed. I have explained to the pt and re-iterated all her current medical co-morbidities as listed above. continue palliative care and possible SNF evaluation if pt agrees to go to SNF. it appears her sig.other may not be able to provide adequate ADL care. PT and CM c/s placed/
--- NOTE | 2019-08-21 16:51 | PDOC.EVN ---
Event Note - Event Note Event Note: I have explained the current medical condnn including prob breast cancer, though pt seems to understand -- still wants to know the specifics. without oncology definite input, not much to discuss. with her current health condin.. she is not a strong candidate for aggressive intervention incl..chemo. i clearly stated that to the pt and to her sig, other, when i talk to him y'day morning over john phone. still they are not clear. it appears that they are not understanding her medical condition. palliative is involved. Hopefully we can help them to understand her prognosis.
[2019-08-22 02:07] LABS: Hemoglobin 9.3 g/dL (12.0-16.0); MDiff Complete? YES; Mean Corpuscular HGB CONC 33.3 g/dL (32.0-36.0); Mean Corpuscular Hemoglobin 34.4 pg (27.0-31.0); Mean Platelet Volume 9.1 fL (7.4-10.4); Platelet Count 34 thou/uL (130-400); RBC Distribution Width 13.8 % (11.5-14.5); Red Blood Cell (RBC) Count 2.71 mill/uL (4.20-5.40); White Blood Cell (WBC) Count 13.8 thou/uL (4.8-10.8)
[2019-08-22 02:08] LABS: Band 13 % (5-11); Lymphocytes 14 % (21-51); Monocytes 4 % (0-10); Myelocyte 1 % (0-0); Neutrophil 65 % (42-75); Nucleated RBC 1 % (0); Platelet Morphology Comment Appears Decreased; Reactive Lymphocytes 3 % (0-10); Toxic Granulation SLIGHT
[2019-08-22 02:14] LABS: Anion Gap 15 mmol/L (10-20); BUN (Urea Nitrogen) 20 mg/dL (9.8-20.1); Calc. Creatinine Clearance 36 mL/min (70-130); Calcium 8.3 mg/dL (7.8-10.44); Carbon Dioxide 17 mmol/L (23-31); Chloride 108 mmol/L (98-107); Estimated GFR-MDRD 36; Glucose 79 mg/dL (83-110); Potassium 3.7 mmol/L (3.5-5.1); Sodium 136 mmol/L (136-145)
[2019-08-22] MEDS: traMADol HCl 50 MG TAB PO PRN ×2 (04:21→12:34)
[2019-08-22] MEDS: Acetaminophen 500 MG TAB PO PRN ×2 (05:47→21:06)
--- NOTE | 2019-08-22 07:51 | RAD ---
Exam: Chest one view: HISTORY: Low O2 sats COMPARISON: 08/14/2019 CT and chest one view FINDINGS: Worsening pleural and parenchymal opacity changes in the right base. Mild increased markings in the l eft chest, stable. Heart size is within normal limits. IMPRESSION: Increased right pleural and parenchymal changes in the right lower chest evidence for some effusion a nd possibly associated pneumonia.
[2019-08-22] MEDS: Famotidine 20 MG TAB PO SCH (08:34)
[2019-08-22] MEDS: Midodrine HCl 5 MG TAB PO SCH ×2 (08:49→21:06)
[2019-08-22] MEDS: Dronedarone HCl 400 MG TAB PO SCH ×2 (08:49→16:15)
--- NOTE | 2019-08-22 14:37 | PDOC.MOPN ---
Interval History: complains of weakness - Vital Signs Vital Signs: Vital Signs (12 hours) Temp Pulse Resp BP Pulse Ox 08/22/19 12:39 86/53 L 94 L 08/22/19 12:00 97.9 F 73 16 85/49 L 92 L 08/22/19 08:00 97.6 F 76 16 87/57 L 92 L 08/22/19 05:18 97.7 F 79 16 84/50 L 95 Weight Admit Weight 145 lb Weight 145 lb 4.554 oz Most Recent Monitor Data Heart Rate from ECG 68 NIBP 93/57 NIBP BP-Mean 69 Respiration from ECG 18 SpO2 96 - Physical Exam General: Alert HEENT: Atraumatic Lungs: Clear to auscultation Abdomen: Normal bowel sounds Extremities: Other (ble edema) Neurological: Normal speech - Labs Result Diagrams: 08/22/19 01:32 08/22/19 01:31 Lab results: Laboratory Results - last 24 hr 08/22/19 01:32: WBC 13.8 H, RBC 2.71 L, Hgb 9.3 L, Hct 28.0 L, MCV 103.0 H, MCH 34.4 H, MCHC 33.3, RDW 13.8, Plt Count 34 L, MPV 9.1, Neutrophils % (Manual) 65 , Band Neuts % (Manual) 13 H, Lymphocytes % (Manual) 14 L, Reactive Lymphs % 3, Monocytes % (Manual) 4, Myelocytes % 1 H, Nucleated RBCs # (Man) 1 H, Toxic Granulation SLIGHT, Plt Morphology Comment Appears Decreased L 08/22/19 01:31: B-Natriuretic Peptide 164.9 H 08/22/19 01:31: CK-MB (CK-2) 1.0, Troponin I 0.048 H 08/22/19 01:31: Sodium 136, Potassium 3.7, Chloride 108 H, Carbon Dioxide 17 L, Anion Gap 15, BUN 20, Creatinine 1.44 H, Estimated GFR (MDRD) 36, Glucose 79 L, Calcium 8.3 08/21/19 11:59: CA 27-29 24.1 Status: lab reviewed by me A/P - Problem (1) Lymphadenopathy Current Visit: Yes Code(s): R59.1 - GENERALIZED ENLARGED LYMPH NODES Status : Acute - Plan Plan: flow pending CEA mildly elevated Long conversions with patient and significant other about cancer diagnosis. Patient remains too weak for biopsy. Will add steroids today. hopefully, she will improve over the weekend and can get tissue on Sunday. SNF placement upon discharge.
[2019-08-22] MEDS ORDERED: Cefepime 1 GM in Sodium Chloride 0.9% 100 ML IVPB SCH (15:15)
[2019-08-22] MEDS: Dexamethasone 4 MG TAB PO SCH (16:15)
[2019-08-22] MEDS: Vancomycin HCl 1 GM in Premix Bag 1 BAG IVPB SCH (17:13)
--- NOTE | 2019-08-22 19:21 | PDOC.HOSPP ---
- Subjective Encounter Date: 08/22/19 Encounter Time: 11:00 Subjective: patient evaluated for generalize weakness, brain mass breast mass and generalize lymphadenopathy, patient is complaining of worsening sob increased cough and sputum production, patient requiring increased 02 supplementation now at 6L, denies chest pain fever or chills does refer general malaise - Objective Vital Signs & Weight: Vital Signs (12 hours) Temp Pulse Resp BP BP Pulse Ox 08/22/19 18:00 97.3 F L 73 20 110/63 96 08/22/19 17:30 95 08/22/19 16:36 98.6 F 74 18 92/57 L 92 L 08/22/19 12:39 86/53 L 94 L 08/22/19 12:00 97.9 F 73 16 85/49 L 92 L 08/22/19 08:00 97.6 F 76 16 87/57 L 92 L Weight Admit Weight 145 lb Weight 145 lb 4.554 oz Most Recent Monitor Data Heart Rate from ECG 71 NIBP 100/62 NIBP BP-Mean 74 Respiration from ECG 21 SpO2 95 I&O: 08/21/19 08/22/19 08/23/19 06:59 06:59 06:59 Intake Total 480 300 250 Output Total 1200 350 0 Balance -720 -50 250 Result Diagrams: 08/22/19 01:32 08/22/19 01:31 Hospitalist ROS - Review of Systems All other systems reviewed; all pertinent +/- noted in HPI/Subj - Medication Medications: Active Medications Generic Name Dose Route Start Last Admin Trade Name Freq PRN Reason Stop Dose Admin Acetaminophen 1,000 mg 08/15/19 03:35 08/22/19 05:47 Tylenol PO 1,000 mg Q6H PRN Administration Mild Pain (1-3) Albuterol/Ipratropium 3 ml 08/20/19 11:50 08/22/19 01:13 Duoneb NEB 3 ml Q4H PRN Administration .WHEEZING Dexamethasone 4 mg 08/22/19 17:00 08/22/19 16:15 Decadron PO 4 mg BID-WM JONG Administration Diphenoxylate HCl/Atropine 2 tab 08/19/19 18:09 08/19/19 19:38 Lomotil PO 2 tab TIDPRN PRN Administration Diarrhea/Loose Stools Dronedarone 400 mg 08/15/19 17:00 08/22/19 16:15 Multaq PO 400 mg BID-WM JONG Administration Famotidine 20 mg 08/15/19 09:00 08/22/19 08:34 Pepcid PO Not Given QAM JONG Vancomycin HCl 1 gm/ Device 200 mls @ 200 mls/hr 08/22/19 16:00 08/22/19 17: 13 IVPB 200 mls 1600 JONG Administration Midodrine 5 mg 08/20/19 21:00 08/22/19 08:49 Proamatine PO 5 mg BID JONG Administration Sodium Chloride 10 ml 08/15/19 21:00 08/22/19 08:54 Flush - Normal Saline IVF 10 ml Q12HR JONG Administration Tramadol HCl 50 mg 08/16/19 11:03 08/22/19 12:34 Ultram PO 50 mg Q6H PRN Administration Moderate Pain (4-6) - Exam General Appearance: ill appearing Eye: PERRL, anicteric sclera ENT: normocephalic atraumatic, no oropharyngeal lesions Neck: supple, symmetric, no JVD Heart: RRR, no murmur, no gallops, no rubs Respiratory: no wheezes, no rales, no ronchi, tachypneic Gastrointestinal: soft, non-tender, non-distended, normal bowel sounds Extremities: no cyanosis, no clubbing Neurological: cranial nerve grossly intact Psychiatric: normal affect, normal behavior, A&O x 3 Hosp A/P (1) Breast mass Code(s): N63.0 - UNSPECIFIED LUMP IN UNSPECIFIED BREAST Status: Acute (2) Lymphadenopathy Code(s): R59.1 - GENERALIZED ENLARGED LYMPH NODES Status: Acute (3) Healthcare-associated pneumonia Code(s): J18.9 - PNEUMONIA, UNSPECIFIED ORGANISM Status: Acute (4) Acute kidney injury superimposed on CKD Code(s): N17.9 - ACUTE KIDNEY FAILURE, UNSPECIFIED; N18.9 - CHRONIC KIDNEY DISEASE, UNSPECIFIED Status: Acute (5) Suspected malignant neoplasm Code(s): R68.89 - OTHER GENERAL SYMPTOMS AND SIGNS Status: Acute (6) Thrombocytopenia Code(s): D69.6 - THROMBOCYTOPENIA, UNSPECIFIED Status: Acute (7) Atrial fibrillation with RVR Code(s): I48.91 - UNSPECIFIED ATRIAL FIBRILLATION Status: Acute (8) Elevated troponin Code(s): R79.89 - OTHER SPECIFIED ABNORMAL FINDINGS OF BLOOD CHEMISTRY Status : Acute - Plan - due to cxr findings in an immuno compromise pt will start treatment with cefepimen and vanc for hc associated pna, will also send procalcitonin to confirm bacterial origen -transfer to ccu due to increased oxygen requirements and hypotension -monitor b/p and start levophed in map decreases below 65 -f/u oncologist recommendations for evaluation of breast mass and lympadenopathy. refers patient is too weak to biopsy and tx at this time -off pharmacolgic dvt prophylaxis due to thrombocytopenia -poor prognosis -continue current tx for chronic conditons
[2019-08-23 04:30] LABS: Anion Gap 16 mmol/L (10-20); BUN (Urea Nitrogen) 28 mg/dL (9.8-20.1); Calc. Creatinine Clearance 32 mL/min (70-130); Calcium 8.5 mg/dL (7.8-10.44); Carbon Dioxide 15 mmol/L (23-31); Chloride 107 mmol/L (98-107); Estimated GFR-MDRD 31; Glucose 91 mg/dL (83-110); Potassium 4.3 mmol/L (3.5-5.1); Sodium 134 mmol/L (136-145)
[2019-08-23 05:24] LABS: Band 15 % (5-11); Differential Comment Immature Cell(s); Hemoglobin 9.7 g/dL (12.0-16.0); Lymphocytes 10 % (21-51); MDiff Complete? YES; Macrocytosis SLIGHT = 6-15 cells (100X) (0-5/hpf); Mean Corpuscular HGB CONC 33.8 g/dL (32.0-36.0); Mean Corpuscular Hemoglobin 35.4 pg (27.0-31.0); Mean Platelet Volume 9.5 fL (7.4-10.4); Monocytes 4 % (0-10); Myelocyte 1 % (0-0); Neutrophil 62 % (42-75); Nucleated RBC 1 % (0); Platelet Count 35 thou/uL (130-400); Platelet Morphology Comment Appears Decreased; RBC Distribution Width 14.2 % (11.5-14.5); Reactive Lymphocytes 5 % (0-10); Red Blood Cell (RBC) Count 2.73 mill/uL (4.20-5.40); Toxic Granulation SLIGHT; White Blood Cell (WBC) Count 18.2 thou/uL (4.8-10.8)
[2019-08-23] MEDS: Dexamethasone 4 MG TAB PO SCH ×2 (09:31→17:01)
[2019-08-23] MEDS: Dronedarone HCl 400 MG TAB PO SCH ×2 (09:32→17:01)
[2019-08-23] MEDS: Midodrine HCl 5 MG TAB PO SCH ×2 (09:32→19:57)
[2019-08-23] MEDS: Famotidine 20 MG TAB PO SCH (09:32)
[2019-08-23] MEDS ORDERED: Fluconazole In NaCl,Iso-Osm 200 MG in Premix Bag 1 BAG IVPB SCH (16:00)
--- NOTE | 2019-08-23 16:27 | PRG ---
DATE OF SERVICE: 08/23/2019 SERVICE: Pulmonary Medicine. INTERVAL HISTORY: The patient is doing poorly from a blood pressure standpoint. She has very poor urine output. She has gross anasarca. She is sitting in bed, moaning. She has very poor functional status. Her blood pressures are marginal at best. Otherwise, there has been no interval change to her condition. She fevers overnight. I have reviewed multiple different imaging studies to help make sense of what has been going on here recently. The patient cannot provide me with any additional elements of this history. PHYSICAL EXAMINATION: VITAL SIGNS: Afebrile, pulse 68, blood pressure 88/59, respirations 24, saturation 96%, currently on 2 L nasal cannula. GENERAL: The patient is awake and alert. She has no distress, but whenever you touch her, she takes a deep breath, and moans with exhalation. HEENT: Normocephalic and atraumatic. Sclerae white. Conjunctivae pink. Oral mucosa is dry. She has a very dense plaque that is easily scraped from the tongue consistent with thrush. No cervical lymphadenopathy. LABORATORY DATA: WBC 18.2 and uptrending, hemoglobin 9.7, platelets 35,000, remaining quite low. Band count is 15% and rising on top of 62% neutrophils. Lymphocytes are 10%. Monocytes are 4%. Creatinine uptrending to 1.62, BUN 28, bicarb 15. Basic metabolic profile is otherwise unremarkable. Procalcitonin 2.42, cortisol 18. 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 IMAGING DATA: Chest x-ray demonstrates a right-sided pleural effusion. There is possibly a layering effusion versus an actual infiltrate at the right base. Cardiac silhouette is quite small. Otherwise, no lung disease is identified. ASSESSMENT: 1. Acute hypoxic respiratory failure. 2. 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 3. Extra-axial hematoma of the left parietal region (this is not subdural disease). 4. Pachymeningeal enhancement with dural, skull, and subgaleal thickening, possibly consistent with a neoplastic process. 5. Breast mass/nodule? I could not appreciate one. 6. Thrush. DISCUSSION AND PLAN: We will continue her antibiotics including cefepime and vancomycin. That being said, all culture results remain negative to date. I will put her on fluconazole. This will be a 10-day course. This is for the thrush, but there is a really good chance that with lymphoma, the patient is immunocompromised and developed a systemic fungal infection. Perhaps this is why she is not behaving with such severe systemic inflammatory response syndrome. I will empirically put her on fluconazole. We will get blood cultures x2, urinalysis, urine culture. I will repeat a chest x-ray tomorrow morning to make certain the effusion versus infiltrate in the right base is not evolving. Other antibiotics will be continued. Supportive measures will be continued. I agree with making an attempt at minimizing fluids through time, but if her creatinine continues to rise into tomorrow, we may be forced to give her something to expand her intravascular space. Pulmonary will follow. Job ID: [id number] MTDD
[2019-08-23] MEDS: Cefepime 1 GM in Sodium Chloride 0.9% 100 ML IVPB SCH (16:57)
[2019-08-23] MEDS: Vancomycin HCl 1 GM in Premix Bag 1 BAG IVPB SCH (17:01)
--- NOTE | 2019-08-23 17:57 | PDOC.HOSPP ---
- Subjective Encounter Date: 08/23/19 Encounter Time: 17:50 Subjective: f/u for generalized lymphadenopathy, malaise, weakness treated with Vancomycin/ Cefepime/Fluconazole. - Objective Vital Signs & Weight: Vital Signs (12 hours) Temp Pulse Pulse BP BP Pulse Ox Pulse Ox 08/23/19 12:00 97.4 F L 08/23/19 09:35 71 77 88/59 L 90/56 L 92 L 08/23/19 07:32 93 L 08/23/19 07:00 97.3 F L Pulse Ox 08/23/19 12:00 08/23/19 09:35 94 L 08/23/19 07:32 08/23/19 07:00 Weight Admit Weight 145 lb Weight 141 lb 5.061 oz Most Recent Monitor Data Heart Rate from ECG 68 NIBP 88/59 NIBP BP-Mean 68 Respiration from ECG 24 SpO2 96 I&O: 08/22/19 08/23/19 08/24/19 06:59 06:59 06:59 Intake Total 300 690 290 Output Total 350 150 200 Balance -50 540 90 Result Diagrams: 08/23/19 03:48 08/23/19 03:48 Additional Labs: Microbiology 08/18/19 10:47 Stool Stool Occult Blood (CECELIA) - Final 08/14/19 18:35 Venous blood - Left Hand Blood Culture - Final NO GROWTH IN 5 DAYS 08/14/19 18:30 Venous blood - Left Arm Blood Culture - Final NO GROWTH IN 5 DAYS Laboratory Tests 08/17/19 08/20/19 08/21/19 04:52 04:23 04:24 WBC 9.9 10.2 Hgb 8.4 L 8.5 L Carbon Dioxide BUN Creatinine B-Natriuretic Peptide CA 27-29 Procalcitonin Cortisol 18.00 08/21/19 08/22/19 08/22/19 11:59 01:31 01:31 WBC Hgb Carbon Dioxide 17 L BUN 20 Creatinine 1.44 H B-Natriuretic Peptide 164.9 H CA 27-29 24.1 Procalcitonin Cortisol 08/22/19 08/23/19 01:32 03:48 WBC 13.8 H Hgb 9.3 L Carbon Dioxide BUN Creatinine B-Natriuretic Peptide CA 27-29 Procalcitonin 2.42 Cortisol Radiology Reviewed by me: Yes (PCXR - R-sided pleural changes) EKG Reviewed by me: Yes (Tele - SR) Hospitalist ROS - Medication Medications: Active Medications Generic Name Dose Route Start Last Admin Trade Name Freq PRN Reason Stop Dose Admin Acetaminophen 1,000 mg 08/15/19 03:35 08/22/19 21:06 Tylenol PO 1,000 mg Q6H PRN Administration Mild Pain (1-3) Albuterol/Ipratropium 3 ml 08/20/19 11:50 08/22/19 22:02 Duoneb NEB 3 ml Q4H PRN Administration .WHEEZING Dexamethasone 4 mg 08/22/19 17:00 08/23/19 17:01 Decadron PO 4 mg BID-WM JONG Administration Diphenoxylate HCl/Atropine 2 tab 08/19/19 18:09 08/19/19 19:38 Lomotil PO 2 tab TIDPRN PRN Administration Diarrhea/Loose Stools Dronedarone 400 mg 08/15/19 17:00 08/23/19 17:01 Multaq PO 400 mg BID-WM JONG Administration Famotidine 20 mg 08/15/19 09:00 08/23/19 09:32 Pepcid PO 20 mg QAM JONG Administration Sodium Chloride 250 mls @ 999 mls/hr 08/20/19 11:47 08/22/19 22:50 Normal Saline 0.9% 250 Ml Bag IVPB 250 mls Q4H PRN Administration SBP <85 Cefepime HCl 1 gm/ Sodium 100 mls @ 200 mls/hr 08/23/19 15:00 08/23/19 16:57 Chloride IVPB 100 mls 1500 JONG Administration Vancomycin HCl 1 gm/ Device 200 mls @ 200 mls/hr 08/22/19 16:00 08/23/19 17: 01 IVPB 200 mls 1600 JONG Administration Fluconazole/Sodium Chloride 100 mls @ 100 mls/hr 08/23/19 16:00 08/23/19 17: 00 200 mg/ Device IVPB 08/23/19 18:00 100 mls NOW JONG Administration Midodrine 5 mg 08/20/19 21:00 08/23/19 09:32 Proamatine PO 5 mg BID JONG Administration Sodium Chloride 10 ml 08/15/19 21:00 08/23/19 09:32 Flush - Normal Saline IVF 10 ml Q12HR JONG Administration Tramadol HCl 50 mg 08/16/19 11:03 08/22/19 12:34 Ultram PO 50 mg Q6H PRN Administration Moderate Pain (4-6) - Exam General Appearance: ill appearing General - other findings: grimaces Eye: PERRL, anicteric sclera ENT: normocephalic atraumatic, no oropharyngeal lesions Neck: supple, symmetric, no JVD, no thyromegaly Heart: RRR, no gallops, no rubs, normal peripheral pulses Respiratory - other findings: diminished with basilar coarse sounds Gastrointestinal: soft, non-distended, normal bowel sounds, no palpable masses Extremities: no cyanosis Extremities - other findings: 3+ edema Skin: normal turgor Musculoskeletal: generalized weakness Psychiatric: somnolent, lethargic Hosp A/P (1) Acute respiratory failure with hypoxia Code(s): J96.01 - ACUTE RESPIRATORY FAILURE WITH HYPOXIA Status: Acute Plan: Continue O2 supplementation, continue Cefepime/Fluconazole/Vancomycin (2) Healthcare-associated pneumonia Code(s): J18.9 - PNEUMONIA, UNSPECIFIED ORGANISM Status: Acute Plan: Continue Duonebs, Cefepime/Vancomycin (3) Acute kidney injury superimposed on CKD Code(s): N17.9 - ACUTE KIDNEY FAILURE, UNSPECIFIED; N18.9 - CHRONIC KIDNEY DISEASE, UNSPECIFIED Status: Acute Plan: Avoid nephrotoxic meds and limit contrast exposure, serial creatinine (4) Lymphadenopathy Code(s): R59.1 - GENERALIZED ENLARGED LYMPH NODES Status: Acute Plan: Suspicious for lymphoma, Med oncology follow up (5) Suspected malignant neoplasm Code(s): R68.89 - OTHER GENERAL SYMPTOMS AND SIGNS Status: Acute Plan: No definitive bx to date, suspected B-cell lymphoproliferative disease by flow cytometry (6) Hypotension Status: Acute Plan: ? etiology, hold BP meds, continue Midodrine (7) Hypoalbuminemia due to protein-calorie malnutrition Code(s): E46 - UNSPECIFIED PROTEIN-CALORIE MALNUTRITION Status: Acute Plan: Nepro, Mightrobina Shake, Reg Diet (8) Macrocytic anemia Code(s): D53.9 - NUTRITIONAL ANEMIA, UNSPECIFIED Status: Chronic Plan: Chronic and stable, consider evaluating B12/Folate levels - Plan continue antibiotics, PT/OT, director of social work, out of bed/ambulate, DVT proph w/ SCDs Continue supportive mgmt Continue Midodrine Await actual tissue bx PT/OT for mobilization CM for SNF options
[2019-08-23 18:54] LABS: Bilirubin Negative (Negative); Blood, Urine 2+ (Negative); Clarity Turbid (Clear); Glucose, Urine (Dipstick) Normal (Negative); Leukocyte 75 Leu/uL (Negative); Nitrite Negative (Negative); Protein, Urine (Dipstick) 50 mg/dL (Neg-Trace); RBC/HPF 0-3 HPF (0-3); Squamous Epithelial 0-3 HPF (0-3); Urobilinogen Normal mg/dL (Less than 2)
[2019-08-23 18:57] LABS: Bacteria/HPF 1+ HPF (None Seen); Urine Culture Reflex Yes Yes
--- NOTE | 2019-08-24 08:26 | PDOC.HOSPP ---
- Subjective Encounter Date: 08/24/19 Encounter Time: 08:15 Subjective: f/u for lymphadenopathy suspected B-cell lymphoma by flow cytometry but no bx. Pt feels weak and tired. Nursing reports persistent hypotension. Receiving Midodrine and IVF bolus of 250ml currently. - Objective Vital Signs & Weight: Vital Signs (12 hours) Temp 08/24/19 08:00 97.6 F 08/24/19 04:00 96.5 F L 08/24/19 00:00 97.7 F Weight Admit Weight 145 lb Weight 141 lb 5.061 oz Most Recent Monitor Data Heart Rate from ECG 56 NIBP 80/48 NIBP BP-Mean 58 Respiration from ECG 21 SpO2 92 I&O: 08/23/19 08/24/19 08/25/19 06:59 06:59 06:59 Intake Total 690 1069 Output Total 150 310 0 Balance 540 759 0 Result Diagrams: 08/23/19 03:48 08/23/19 03:48 Additional Labs: Microbiology 08/18/19 10:47 Stool Stool Occult Blood (CECELIA) - Final 08/14/19 18:35 Venous blood - Left Hand Blood Culture - Final NO GROWTH IN 5 DAYS 08/14/19 18:30 Venous blood - Left Arm Blood Culture - Final NO GROWTH IN 5 DAYS Laboratory Tests 08/17/19 08/20/19 08/21/19 04:52 04:23 04:24 WBC 9.9 10.2 Hgb 8.4 L 8.5 L Carbon Dioxide BUN Creatinine B-Natriuretic Peptide CA 27-29 Procalcitonin Cortisol 18.00 08/21/19 08/22/19 08/22/19 11:59 01:31 01:31 WBC Hgb Carbon Dioxide 17 L BUN 20 Creatinine 1.44 H B-Natriuretic Peptide 164.9 H CA 27-29 24.1 Procalcitonin Cortisol 08/22/19 08/23/19 01:32 03:48 WBC 13.8 H Hgb 9.3 L Carbon Dioxide BUN Creatinine B-Natriuretic Peptide CA 27-29 Procalcitonin 2.42 Cortisol EKG Reviewed by me: Yes (Tele - SR) Hospitalist ROS - Medication Medications: Active Medications Generic Name Dose Route Start Last Admin Trade Name Freq PRN Reason Stop Dose Admin Acetaminophen 1,000 mg 08/15/19 03:35 08/22/19 21:06 Tylenol PO 1,000 mg Q6H PRN Administration Mild Pain (1-3) Albuterol/Ipratropium 3 ml 08/20/19 11:50 08/22/19 22:02 Duoneb NEB 3 ml Q4H PRN Administration .WHEEZING Dexamethasone 4 mg 08/22/19 17:00 08/23/19 17:01 Decadron PO 4 mg BID-WM JONG Administration Diphenoxylate HCl/Atropine 2 tab 08/19/19 18:09 08/19/19 19:38 Lomotil PO 2 tab TIDPRN PRN Administration Diarrhea/Loose Stools Dronedarone 400 mg 08/15/19 17:00 08/23/19 17:01 Multaq PO 400 mg BID-WM JONG Administration Famotidine 20 mg 08/15/19 09:00 08/23/19 09:32 Pepcid PO 20 mg QAM JONG Administration Sodium Chloride 250 mls @ 999 mls/hr 08/20/19 11:47 08/22/19 22:50 Normal Saline 0.9% 250 Ml Bag IVPB 250 mls Q4H PRN Administration SBP <85 Cefepime HCl 1 gm/ Sodium 100 mls @ 200 mls/hr 08/23/19 15:00 08/23/19 16:57 Chloride IVPB 100 mls 1500 JONG Administration Vancomycin HCl 1 gm/ Device 200 mls @ 200 mls/hr 08/22/19 16:00 08/23/19 17: 01 IVPB 200 mls 1600 JONG Administration Midodrine 5 mg 08/20/19 21:00 08/23/19 19:57 Proamatine PO 5 mg BID JONG Administration Sodium Chloride 10 ml 08/15/19 21:00 08/23/19 19:57 Flush - Normal Saline IVF 10 ml Q12HR JONG Administration Tramadol HCl 50 mg 08/16/19 11:03 08/22/19 12:34 Ultram PO 50 mg Q6H PRN Administration Moderate Pain (4-6) - Exam General Appearance: ill appearing General - other findings: frail, pale, nods to questions Eye: PERRL, anicteric sclera ENT: normocephalic atraumatic ENT - other findings: white plaques in oropharynx Neck: supple Neck - other findings: + lymphadenopathy Heart: RRR, no murmur, no gallops, no rubs, normal peripheral pulses Respiratory: tachypneic Respiratory - other findings: diminished in bases Gastrointestinal: soft, non-tender, non-distended, normal bowel sounds Extremities: no cyanosis, 2+ LE edema Extremities - other findings: UE edema > than LE edema Skin: normal turgor Neurological: no new deficit Musculoskeletal: generalized weakness Psychiatric: A&O x 3, lethargic Hosp A/P (1) Acute respiratory failure with hypoxia Code(s): J96.01 - ACUTE RESPIRATORY FAILURE WITH HYPOXIA Status: Acute Plan: Multifactorial, continue Cefepime/Vancomycin/Fluconazole (2) Healthcare-associated pneumonia Code(s): J18.9 - PNEUMONIA, UNSPECIFIED ORGANISM Status: Acute Plan: See above in #1 (3) Acute kidney injury superimposed on CKD Code(s): N17.9 - ACUTE KIDNEY FAILURE, UNSPECIFIED; N18.9 - CHRONIC KIDNEY DISEASE, UNSPECIFIED Status: Acute (4) Lymphadenopathy Code(s): R59.1 - GENERALIZED ENLARGED LYMPH NODES Status: Acute Plan: Suspected B-cell lymphoproliferative disease, Medical oncology follow up, no tissue bx to date (5) Suspected malignant neoplasm Code(s): R68.89 - OTHER GENERAL SYMPTOMS AND SIGNS Status: Acute Plan: See above (6) Hypotension Status: Acute Plan: Multifactorial, continue Midodrine/IVF's, trial of Albumin infusion (7) Hypoalbuminemia due to protein-calorie malnutrition Code(s): E46 - UNSPECIFIED PROTEIN-CALORIE MALNUTRITION Status: Acute Plan: Albumin infusion today (8) Macrocytic anemia Code(s): D53.9 - NUTRITIONAL ANEMIA, UNSPECIFIED Status: Chronic (9) Thrombocytopenia Code(s): D69.6 - THROMBOCYTOPENIA, UNSPECIFIED Status: Chronic Plan: Acute/chronic, monitor trend, avoid NSAIDs, anticoagulation, switch to Protonix , serial monitoring - Plan continue antibiotics, PT/OT, social scientist, speech therapy, respiratory therapy, DVT proph w/SCDs Continue supportive mgmt Continue Cefepime/Vanc/Fluconazole Continue Midodrine Await actual tissue bx PT/OT for mobilization CM for SNF options Albumin 25gm IV q6h Palliative care consult AM lab: BMP, CBC
--- NOTE | 2019-08-24 08:43 | RAD ---
PORTABLE CHEST ONE VIEW: HISTORY: Follow up pleural effusion. COMPARISON: 08/22/2019 FINDINGS: Progressive bilateral vascular congestion with some patchy interstitial and alveolar opacity changes in a perihilar distribution. Persistent right pleural effusion. Slight left costophrenic angle blunti ng. Heart size is normal. IMPRESSION: 1. Worsening bilateral perihilar opacity changes since prior study 2. Right pleural effusion. 3. Slight left costophrenic angle blunting. Continue short-term followup. POS: AIME
[2019-08-24] MEDS ORDERED: Fluconazole In NaCl,Iso-Osm 100 MG in Admixture Fee 2 EACH IVPB SCH (09:00)
[2019-08-24] MEDS: Dexamethasone 4 MG TAB PO SCH (09:09)
[2019-08-24] MEDS: Dronedarone HCl 400 MG TAB PO SCH ×2 (09:12→17:16)
[2019-08-24] MEDS: Albumin 25% 25 GM/100 ML BOT IVPB SCH ×3 (09:12→20:03)
[2019-08-24] MEDS: Pantoprazole 40 MG VIAL IVP SCH (09:14)
[2019-08-24] MEDS: Midodrine HCl 5 MG TAB PO SCH ×3 (11:41→20:03)
[2019-08-24] MEDS ORDERED: Fluconazole 100 MG TAB PO SCH (13:00)
--- NOTE | 2019-08-24 13:11 | PRG ---
DATE OF SERVICE: 08/24/2019 SERVICE: Pulmonary Medicine. INTERVAL HISTORY: The patient is doing poorly from a respiratory standpoint. Her blood pressures remain a little bit marginal. She denies having any shortness of breath or chest discomfort. Urine output has dropped off a little bit. Otherwise, there has been no interval change to her condition. She got a dose of albumin this morning and her blood pressures have temporarily perked up. PHYSICAL EXAMINATION: VITAL SIGNS: Afebrile; pulse of 56; blood pressure 80/48; respirations 21; and saturation 92%, currently on 1 L nasal cannula. GENERAL: The patient is awake and alert, in no apparent distress. LUNGS: Good air entry. Rhonchi and crackles are both present. No prolonged expiratory phase or wheezing is appreciated. HEART: Normal rate, regular. ABDOMEN: Soft, nontender, and nondistended. Bowel sounds are positive. MUSCULOSKELETAL: No cyanosis or clubbing. There is diffuse pitting throughout. LABORATORY DATA: Creatinine 1.64, BUN 28. Basic metabolic profile is otherwise unremarkable. Procalcitonin 2.4. Blood cultures x2 and stool cultures are negative to date. IMAGING: Chest x-ray demonstrates bilateral perihilar opacities are progressing. Right-sided pleural effusion is noted. Compared to prior, there is slight interval improvement. ASSESSMENT: 1. Acute hypoxic respiratory failure, mild. 2. 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 3. Extra-axial hematoma of the left parietal region (not subdural disease). 4. Pachymeningeal enhancement with thickening of the dura and subgaleal spaces, possibly consistent with metastatic process. 5. Thrush. DISCUSSION AND PLAN: At this point, her nutrition is deplorable. We will put in a Dobhoff tube, so we can initiate trickle feeds. Decadron will be stopped as we were really not dealing with a massive intracranial mass causing mass effect here. We will put her on stress doses of steroids with hydrocortisone. I will switch over her Diflucan over to p.o. We will get a right upper extremity ultrasound to invest the localized edema there. She remains critically ill. She will stay in the ICU for the time being. In her current situation, she is certainly not a candidate for lymphoma therapy. That being said, if systemic fungal infection is at the root of her illness, she may make some degree of recovery over the next 24 to 48 hours and I would be inclined to give her that opportunity. Job ID: [id number]
--- NOTE | 2019-08-24 13:44 | RAD ---
Radiograph abdomen one view: DATE: 08/24/2019 Time: 1:02 PM HISTORY: Status post Dobbhoff tube placement in 74-year-old female. Dr. Boateng spoke to Tanika Ventura of the CCU by telephone at 1:39 PM on 08/24/2019. She stated that Dr. Zamudio was aware of the position of the Dobbhoff feeding tube, and that it was r etracted. FINDINGS: Distal tip of Dobbhoff feeding tube is obliquely oriented across the left lower lung zone. Stomach appears decompressed. IMPRESSION: Dobbhoff feeding tube deep in a bronchus, probably a branch of left lower lobe bronchus.
--- NOTE | 2019-08-24 14:10 | RAD ---
RADIOGRAPH CHEST 1 VIEW: DATE: 08/24/2019 TIME: 1:04 PM HISTORY: Dobbhoff tube placement COMPARISON: 08/24/2019 4:56 AM FINDINGS: There is a new Dobbhoff feeding tube with distal portion obliquely oriented overlying the left lower lung zone, distal tip near left base. No interval change in appearance of the left lung. Lateral half of right lung excluded from [id number]. IMPRESSION: Dobbhoff feeding tube inserted into bronchus, probably a peripheral branch of the left lower lobe bro nchus.
--- NOTE | 2019-08-24 14:12 | RAD ---
RADIOGRAPH CHEST 1 VIEW: DATE: 08/24/2019 TIME: 1:09 PM HISTORY: Readjustment of Dobbhoff feeding tube in 74-year-old female. COMPARISON: 08/24/2019 1:04 PM FINDINGS: Dobbhoff feeding tube has been readjusted, such that it is now vertically oriented with distal tip at midline, overlying the expected location of distal esophagus, slightly superior to diaphragm. Small right pleural effusion. No change in appearance of the lungs. IMPRESSION: Manipulation of Dobbhoff feeding tube out of the left lower lobe bronchus and into the distal esophag us.
--- NOTE | 2019-08-24 14:13 | RAD ---
Radiograph abdomen one view: DATE: 08/24/2019 Time: 1:11 PM HISTORY: Repositioning of Dobbhoff feeding tube. FINDINGS: Dobbhoff feeding tube loops over the left upper quadrant along the gastric body and fundus, and is do ubled back upon itself such that distal tip is near the cardia. IMPRESSION: Interval Dobbhoff feeding tube readjustment, coursing through gastric corpus, with distal tip near ga stric cardia.
[2019-08-24] MEDS: Cefepime 1 GM in Sodium Chloride 0.9% 100 ML IVPB SCH (14:14)
--- NOTE | 2019-08-24 14:41 | ULT ---
Ultrasound Doppler duplex venous right upper extremity: HISTORY: 74-year-old female with right upper extremity swelling. TECHNIQUE: Grayscale, color-flow, and spectral analysis, of major veins of right upper extremities. Compression and release applied to all veins except the subclavian. FINDINGS: There is soft tissue edema in both the arm and forearm. The basilic vein is not visualized. There is patency with no thrombosis of the internal jugular, subclavian, axillary, brachial, cephalic, radial, and ulnar veins. IMPRESSION: 1. Soft tissue edema of left upper extremity. 2. Left basilic vein not visualized. 3. No thrombosis of the rest of the veins.
[2019-08-24] MEDS: Hydrocortisone 10 mg Tablet PO SCH ×2 (14:50→20:08)
[2019-08-25] MEDS: Hydrocortisone 10 mg Tablet PO SCH ×5 (01:58→20:57)
[2019-08-25] MEDS: Albumin 25% 25 GM/100 ML BOT IVPB SCH ×2 (02:03→09:07)
[2019-08-25 04:33] LABS: Anion Gap 22 mmol/L (10-20); BUN (Urea Nitrogen) 51 mg/dL (9.8-20.1); Calc. Creatinine Clearance 22 mL/min (70-130); Calcium 9.6 mg/dL (7.8-10.44); Carbon Dioxide 11 mmol/L (23-31); Chloride 107 mmol/L (98-107); Estimated GFR-MDRD 21; Glucose 119 mg/dL (83-110); Phosphorus 4.3 mg/dL (2.3-4.7); Potassium 4.5 mmol/L (3.5-5.1); Sodium 135 mmol/L (136-145)
[2019-08-25 05:06] LABS: Band 18 % (5-11); Hemoglobin 6.7 g/dL (12.0-16.0); Lymphocytes 42 % (21-51); MDiff Complete? YES; Macrocytosis SLIGHT = 6-15 cells (100X) (0-5/hpf); Mean Corpuscular HGB CONC 32.7 g/dL (32.0-36.0); Mean Corpuscular Hemoglobin 33.9 pg (27.0-31.0); Mean Platelet Volume 10.7 fL (7.4-10.4); Metamyelocyte 2 % (0-0); Myelocyte 1 % (0-0); Neutrophil 35 % (42-75); Nucleated RBC 5 % (0); Platelet Count 30 thou/uL (130-400); Platelet Morphology Comment Appears Decreased; RBC Distribution Width 14.5 % (11.5-14.5); Reactive Lymphocytes 2 % (0-10); Red Blood Cell (RBC) Count 1.97 mill/uL (4.20-5.40); White Blood Cell (WBC) Count 20.7 thou/uL (4.8-10.8)
[2019-08-25] MEDS: traMADol HCl 50 MG TAB PO PRN ×2 (06:10→15:17)
[2019-08-25] MEDS: Sodium Bicarbonate 140 MEQ in Dextrose 5% in Water 1,000 ML IV SCH ×2 (08:27→23:53)
--- NOTE | 2019-08-25 08:36 | PRG ---
DATE OF SERVICE: 08/25/2019 SUBJECTIVE: This patient was moved to the ICU over the weekend. I have reviewed the notes. She continues to have declining health despite aggressive treatment. OBJECTIVE: VITAL SIGNS: On exam, temperature 96.4, pulse 63, blood pressure 109/53, O2 saturations 94%. Intake 1069, output 310. GENERAL: She looks chronically ill. HEENT: Unremarkable. NECK: No JVD. LUNGS: Coarse breath sounds. CARDIOVASCULAR: S1 and S2. Regular. ABDOMEN: Soft and nontender. EXTREMITIES: Edematous throughout. LABORATORY DATA: White blood cell count 20.7, hematocrit 20.4, platelet count 30, hemoglobin 6.7. Sodium 135, potassium 4.5, chloride 107, CO2 of 11, anion gap 18, BUN 51, creatinine 2.3, glucose 119. Flow cytometry was consistent with B-cell lymphoma. ASSESSMENT: 1. B-cell lymphoma. 2. Possibility of underlying breast cancer. 3. Severe protein-calorie malnutrition. 4. Severe metabolic acidosis. PLAN: At this point, it seems very unlikely that this patient will improve with any care. She likely will never become strong enough to undergo biopsy procedures or received the chemotherapy that would be necessary to deal with the lymphoma and/or breast cancer. I will try to change her IV fluids still with a metabolic acidosis, but again chances of survival seem quite poor. Job ID: [id number]
[2019-08-25] MEDS: Dronedarone HCl 400 MG TAB PO SCH (09:07)
[2019-08-25] MEDS: Fluconazole 100 MG TAB PO SCH (09:07)
[2019-08-25] MEDS: Pantoprazole 40 MG VIAL IVP SCH (09:07)
[2019-08-25] MEDS: Midodrine HCl 5 MG TAB PO SCH ×3 (10:08→21:06)
[2019-08-25 11:20] VITALS: BP 104/42
[2019-08-25 14:54] VITALS: BMI 24.3
[2019-08-25] MEDS: Cefepime 1 GM in Sodium Chloride 0.9% 100 ML IVPB SCH (15:16)
--- NOTE | 2019-08-25 15:19 | PDOC.MOPN ---
Interval History: Patient moaning in pain. Events of weekend noted. - Vital Signs Vital Signs: Vital Signs (12 hours) Temp Pulse Pulse Resp BP Pulse Ox 08/25/19 15:07 64 24 H 95 08/25/19 12:00 97 F L 08/25/19 11:19 97.2 F L 63 17 104/42 L 08/25/19 11:00 97.6 F 63 19 100/43 L 08/25/19 08:00 97.3 F L 92 L 08/25/19 06:15 95 08/25/19 04:00 96.4 F L Weight Admit Weight 145 lb Weight 141 lb 5.061 oz Most Recent Monitor Data Heart Rate from ECG 63 NIBP 105/54 NIBP BP-Mean 71 Respiration from ECG 23 SpO2 95 - Physical Exam General: Mild distress Lungs: Clear to auscultation Cardiovascular: Regular rate Abdomen: Normal bowel sounds Extremities: Other Neurological: Normal speech - Labs Result Diagrams: 08/25/19 03:43 08/25/19 03:43 Lab results: Laboratory Results - last 24 hr 08/25/19 08:30: Blood Type O POSITIVE 08/25/19 08:14: Blood Type O POSITIVE, Antibody Screen NEGATIVE, Crossmatch See Detail 08/25/19 03:43: WBC 20.7 H, RBC 1.97 L, Hgb 6.7 L, Hct 20.4 L, MCV 104.0 H, MCH 33.9 H, MCHC 32.7, RDW 14.5, Plt Count 30 L, MPV 10.7 H, Neutrophils % (Manual) 35 L, Band Neuts % (Manual) 18 H, Lymphocytes % (Manual) 42, Reactive Lymphs % 2 , Metamyelocytes % (Man) 2 H, Myelocytes % 1 H, Nucleated RBCs # (Man) 5 H, Plt Morphology Comment Appears Decreased L, Macrocytosis SLIGHT = 6-15 cells 08/25/19 03:43: Sodium 135 L, Potassium 4.5, Chloride 107, Carbon Dioxide 11 L, Anion Gap 22 H, BUN 51 H, Creatinine 2.26 H, Estimated GFR (MDRD) 21, Glucose 119 H, Calcium 9.6, Phosphorus 4.3 08/25/19 03:43: Magnesium 2.1 Status: lab reviewed by me (flow shows b-cell lymphoproliferative disorder) A/P - Problem (1) Lymphadenopathy Current Visit: Yes Code(s): R59.1 - GENERALIZED ENLARGED LYMPH NODES Status : Acute (2) B-cell abnormality Current Visit: Yes Code(s): D72.9 - DISORDER OF WHITE BLOOD CELLS, UNSPECIFIED Status: Acute (3) Sepsis with acute organ dysfunction Current Visit: No Code(s): A41.9 - SEPSIS, UNSPECIFIED ORGANISM; R65.20 - SEVERE SEPSIS WITHOUT SEPTIC SHOCK Status: Acute - Plan Plan: flow cytometry shows b-cell disorder. Need FNA of lymph node and/or bone marrow biopsy for final diagnosis patient very weak and unable to tolerate biopsy nor chemo at this time
--- NOTE | 2019-08-25 16:50 | PDOC.HOSPP ---
- Subjective Encounter Date: 08/25/19 Encounter Time: 16:35 Subjective: f/u for lymphadenopathy, suspected B-cell lymphoma but no tissue diagnosis for confirmation. Remains weak, uncomfortable and lost IV site. Code status DNAR. - Objective Vital Signs & Weight: Vital Signs (12 hours) Temp Pulse Pulse Resp BP Pulse Ox 08/25/19 15:07 64 24 H 95 08/25/19 12:00 97 F L 08/25/19 11:19 97.2 F L 63 17 104/42 L 08/25/19 11:00 97.6 F 63 19 100/43 L 08/25/19 08:00 97.3 F L 92 L 08/25/19 06:15 95 Weight Admit Weight 145 lb Weight 141 lb 5.061 oz Most Recent Monitor Data Heart Rate from ECG 70 NIBP 95/58 NIBP BP-Mean 70 Respiration from ECG 22 SpO2 94 I&O: 08/24/19 08/25/19 08/26/19 06:59 06:59 06:59 Intake Total 1069 691 402 Output Total 310 802 660 Balance 759 111 -258 Result Diagrams: 08/25/19 03:43 08/25/19 03:43 Additional Labs: Microbiology 08/18/19 10:47 Stool Stool Occult Blood (CECELIA) - Final 08/14/19 18:35 Venous blood - Left Hand Blood Culture - Final NO GROWTH IN 5 DAYS 08/14/19 18:30 Venous blood - Left Arm Blood Culture - Final NO GROWTH IN 5 DAYS Laboratory Tests 08/17/19 08/20/19 08/21/19 04:52 04:23 04:24 WBC 9.9 10.2 Hgb 8.4 L 8.5 L Carbon Dioxide BUN Creatinine B-Natriuretic Peptide CA 27-29 Procalcitonin Cortisol 18.00 08/21/19 08/22/19 08/22/19 11:59 01:31 01:31 WBC Hgb Carbon Dioxide 17 L BUN 20 Creatinine 1.44 H B-Natriuretic Peptide 164.9 H CA 27-29 24.1 Procalcitonin Cortisol 08/22/19 08/23/19 01:32 03:48 WBC 13.8 H Hgb 9.3 L Carbon Dioxide BUN Creatinine B-Natriuretic Peptide CA 27-29 Procalcitonin 2.42 Cortisol Radiology Reviewed by me: Yes (PCXR - increasing density/effusion RLL) EKG Reviewed by me: Yes (Tele - SR) Hospitalist ROS - Medication Medications: Active Medications Generic Name Dose Route Start Last Admin Trade Name Freq PRN Reason Stop Dose Admin Acetaminophen 1,000 mg 08/15/19 03:35 08/22/19 21:06 Tylenol PO 1,000 mg Q6H PRN Administration Mild Pain (1-3) Albuterol/Ipratropium 3 ml 08/20/19 11:50 08/25/19 15:07 Duoneb NEB 3 ml Q4H PRN Administration .WHEEZING Diphenoxylate HCl/Atropine 2 tab 08/19/19 18:09 08/19/19 19:38 Lomotil PO 2 tab TIDPRN PRN Administration Diarrhea/Loose Stools Dronedarone 400 mg 08/25/19 08:00 08/25/19 09:07 Multaq PO 400 mg QAM-WM JONG Administration Fluconazole 100 mg 08/25/19 09:00 08/25/19 09:07 Diflucan PO 100 mg DAILY JONG Administration Hydrocortisone 50 mg 08/24/19 13:00 08/25/19 13:49 Cortef PO 50 mg Q6H JONG Administration Sodium Chloride 250 mls @ 999 mls/hr 08/20/19 11:47 08/22/19 22:50 Normal Saline 0.9% 250 Ml Bag IVPB 250 mls Q4H PRN Administration SBP <85 Cefepime HCl 1 gm/ Sodium 100 mls @ 200 mls/hr 08/23/19 15:00 08/25/19 15:16 Chloride IVPB 100 mls 1500 JONG Administration Sodium Bicarbonate 140 meq/ 1,140 mls @ 75 mls/hr 08/25/19 08:00 08/25/19 08: 27 Dextrose/Water IV 1,140 mls .[id number] JONG Administration Midodrine 10 mg 08/24/19 15:00 08/25/19 15:34 Proamatine PO 10 mg TID JONG Administration Pantoprazole Sodium 40 mg 08/24/19 09:00 08/25/19 09:07 Protonix IVP 40 mg DAILY JONG Administration Sodium Chloride 10 ml 08/15/19 21:00 08/25/19 09:08 Flush - Normal Saline IVF 10 ml Q12HR JONG Administration Tramadol HCl 50 mg 08/25/19 08:16 08/25/19 15:17 Ultram PO 50 mg Q12H PRN Administration Moderate Pain (4-6) - Exam General Appearance: ill appearing General - other findings: pale, moaning Eye: PERRL, anicteric sclera ENT: normocephalic atraumatic, no oropharyngeal lesions Neck: supple, no JVD, no thyromegaly Neck - other findings: + lymphadenopathy Heart: RRR, no gallops, no rubs, diminshed peripheral pulses Respiratory: tachypneic Respiratory - other findings: coarse sounds bilat, diminished in bases Extremities - other findings: UE edema bilat Skin: normal turgor Neurological - other findings: agitated, moaning Musculoskeletal: generalized weakness Psychiatric: somnolent, lethargic Hosp A/P (1) Acute respiratory failure with hypoxia Code(s): J96.01 - ACUTE RESPIRATORY FAILURE WITH HYPOXIA Status: Acute Plan: Persistent, continue O2 supplementation, Duonebs (2) Healthcare-associated pneumonia Code(s): J18.9 - PNEUMONIA, UNSPECIFIED ORGANISM Status: Acute Plan: Appears progressive, continue Cefepime, Duonebs (3) Acute kidney injury superimposed on CKD Code(s): N17.9 - ACUTE KIDNEY FAILURE, UNSPECIFIED; N18.9 - CHRONIC KIDNEY DISEASE, UNSPECIFIED Status: Acute Plan: Worsening, avoid nephrotoxic meds and limit contrast (4) Lymphadenopathy Code(s): R59.1 - GENERALIZED ENLARGED LYMPH NODES Status: Acute Plan: Likely B-cell lymphoma but no tissue dx to date (5) Suspected malignant neoplasm Code(s): R68.89 - OTHER GENERAL SYMPTOMS AND SIGNS Status: Acute (6) Hypotension Status: Acute Plan: Persistent, likely end-stage process, continue IVF's, avoid antihypertensives (7) Hypoalbuminemia due to protein-calorie malnutrition Code(s): E46 - UNSPECIFIED PROTEIN-CALORIE MALNUTRITION Status: Acute (8) Macrocytic anemia Code(s): D53.9 - NUTRITIONAL ANEMIA, UNSPECIFIED Status: Chronic (9) Thrombocytopenia Code(s): D69.6 - THROMBOCYTOPENIA, UNSPECIFIED Status: Chronic - Plan continue antibiotics, web content & social media manager, respiratory therapy, DVT proph w/SCDs Continue supportive mgmt Continue Cefepime/Vanc/Fluconazole Continue Midodrine Await actual tissue bx PT/OT for mobilization CM for SNF options Albumin 25gm IV q6h Palliative care consult Low-dose Lasix 10mg IV x 1 dose AM lab: BMP, CBC, Mg++, PO3 Code Status: DNAR
[2019-08-25] MEDS ORDERED: Furosemide 20 MG/2 ML VIAL SLOW IVP SCH (17:00)
[2019-08-25] MEDS: Scopolamine 1.5 mg/72 hour Patch TD SCH (18:06)
[2019-08-25] MEDS: Lorazepam 0.5 MG TAB PER TUBE PRN (20:57)
[2019-08-26] MEDS: Hydrocortisone 10 mg Tablet PO SCH ×3 (02:24→20:08)
[2019-08-26] MEDS: traMADol HCl 50 MG TAB PO PRN ×3 (02:32→16:00)
[2019-08-26 04:16] LABS: Anion Gap 17 mmol/L (10-20); BUN (Urea Nitrogen) 52 mg/dL (9.8-20.1); Calc. Creatinine Clearance 23 mL/min (70-130); Calcium 9.6 mg/dL (7.8-10.44); Carbon Dioxide 20 mmol/L (23-31); Chloride 104 mmol/L (98-107); Estimated GFR-MDRD 22; Glucose 204 mg/dL (83-110); Magnesium 2.3 mg/dL (1.6-2.6); Sodium 138 mmol/L (136-145)
[2019-08-26 04:20] LABS: Potassium 2.9 mmol/L (3.5-5.1)
[2019-08-26 04:26] LABS: Phosphorus 3.2 mg/dL (2.3-4.7)
[2019-08-26 04:27] LABS: Hemoglobin 7.7 g/dL (12.0-16.0); Mean Corpuscular HGB CONC 34.9 g/dL (32.0-36.0); Mean Corpuscular Hemoglobin 33.6 pg (27.0-31.0); Mean Corpuscular Volume 96.3 fL (78.0-98.0); Mean Platelet Volume 8.8 fL (7.4-10.4); Platelet Count 18 thou/uL (130-400); RBC Distribution Width 15.8 % (11.5-14.5)
[2019-08-26 04:42] LABS: Reflex for Review?? YES
[2019-08-26 04:43] LABS: Band 16 % (5-11); Eosinophils 1 % (0-10); Lymphocytes 29 % (21-51); MDiff Complete? YES; Metamyelocyte 2 % (0-0); Monocytes 1 % (0-10); Myelocyte 1 % (0-0); Neutrophil 28 % (42-75); Nucleated RBC 8 % (0); Platelet Morphology Comment Appears Decreased; Reactive Lymphocytes 3 % (0-10); Toxic Granulation SLIGHT
[2019-08-26] MEDS ORDERED: Potassium Chloride 40 MEQ in Sodium Chloride 0.9% 250 ML 250 ML IVPB SCH (04:45)
[2019-08-26] MEDS: Lorazepam 0.5 MG TAB PER TUBE PRN ×3 (06:31→20:10)
--- NOTE | 2019-08-26 08:03 | PRG ---
DATE OF SERVICE: 08/26/2019 SUBJECTIVE: This patient continues to struggle. She cannot verbalize very well. OBJECTIVE: VITAL SIGNS: On exam, temperature is 97.7, pulse 109. And blood pressure 95/51. A 24-hour intake 2652, output 2245. HEENT: Bitemporal wasting present. She has Dobhoff tube. NECK: No JVD. LUNGS: Coarse rhonchi. CARDIOVASCULAR: S1 and S2, irregularly irregular. ABDOMEN: Soft, slightly distended. EXTREMITIES: Edematous with weeping lesions. LABORATORY DATA: White blood cell count 18.0, hemoglobin 7.7, hematocrit 22.1, and platelet count 18. Sodium 138, potassium 2.9, chloride 104, CO2 of 20, BUN 52, creatinine 2.2, and glucose 204. ASSESSMENT: 1. The patient is severely debilitated from several underlying problems. It seems she probably has some type of B-cell lymphoma that needs tissue diagnosis. Unfortunately, the patient cannot undergo biopsy procedure because she is so debilitated. 2. Severe protein-calorie malnutrition. 3. Improved metabolic acidosis on the bicarb drip. RECOMMENDATIONS: 1. She is continuing cefepime and fluconazole for antibiotic coverage. 2. I would hold diuresis for the current time. 3. Continue bicarbonate drip. 4. Continue potassium supplementation. 5. Decrease hydrocortisone dose. 6. Her prognosis is poor. I do not see any hope of functional recovery and I would advocate changing care to Palliative. Job ID: [id number]
--- NOTE | 2019-08-26 08:29 | PDOC.PALCO ---
Palliative Care Consult - Consult Details Requesting Physician: Dr Acharya Reason for Consult: goals of care, assistance with communication prognosis/ disease, family support, complex decision-making Family Members Present: None - Pertinent HPI Ms Jon is a 74 year old female who had an onset of weakness, fatigue, loss of appetite over the past 2-3 weeks and presented to the emergency room in [place] 08/14 and was to follow up with her primary care. Symptoms progressed and be became unable to ambulate, and identified "nodules on her forerst and abdomen. Returned to emergency room for evaluation and was found to have acute on chronic renal disease, elevated troponin, and CT identified subdural hematoma as well as diffuse lymphadenopathy. Admitted for medical management and further evaluation. - Pertinent PMH Chronic Kidney disease, History of ischemic colitis, hypertension, HDL, physical deconditioning - Social History Smoking Status: Current every day smoker Smoking: cigarettes Alcohol Use: daily Drug Use History: none Living Situation: with partner - Medications MAR Reviewed: Yes - Allergies Allergies/Adverse Reactions: Allergies Allergy/AdvReac Type Severity Reaction Status Date / Time HE Inhibitors Allergy Verified 08/15/19 02:59 - Subjective Paitent arousable. minimal ability to communicate, moans when awake. When sleeping appears comfortable. Unable to perform adequate ROS secondary to lethargy - ROS Non Response: due to mental status Constitutional: lethargic - Objective Vital Signs: Vital Signs - Most Recent Temp Pulse Resp BP Pulse Ox 97.7 F 83 24 H 104/42 L 93 L 08/26/19 06:26 08/26/19 07:57 08/26/19 07:57 08/25/19 11:19 08/26/19 07:57 Palliative Performance Scale: 30 - Physical Exam Constitutional: cachectic, ill appearing, moderate distress HEENT: EOMI, moist MMs, sclera anicteric Respiratory: labored respirations Deviation from normal: Adventicious lung sounds bilaterally, weak wet non productive cough Cardiovascular: diminished peripheral pulses, irregular Gastrointestinal: non-tender, positive bowel sounds, incontinent Genitourinary: chance catheter Musculoskeletal: edema present Deviation from normal: edema greater to right extremities Skin: fragile, friable Deviation from normal: encephalopathic - Problem List (1) Palliative care encounter Code(s): Z51.5 - ENCOUNTER FOR PALLIATIVE CARE Current Visit: Yes Status: Acute (2) Physical deconditioning Code(s): R53.81 - OTHER MALAISE Current Visit: Yes Status: Acute (3) Acute respiratory failure with hypoxia Code(s): J96.01 - ACUTE RESPIRATORY FAILURE WITH HYPOXIA Current Visit: Yes Status: Acute (4) Atrial fibrillation with RVR Code(s): I48.91 - UNSPECIFIED ATRIAL FIBRILLATION Current Visit: Yes Status : Acute (5) B-cell abnormality Code(s): D72.9 - DISORDER OF WHITE BLOOD CELLS, UNSPECIFIED Current Visit: Yes Status: Acute (6) Lymphadenopathy Code(s): R59.1 - GENERALIZED ENLARGED LYMPH NODES Current Visit: Yes Status : Acute (7) Suspected malignant neoplasm Code(s): R68.89 - OTHER GENERAL SYMPTOMS AND SIGNS Current Visit: Yes Status : Acute (8) CKD (chronic kidney disease) stage 3, GFR 30-59 ml/min Code(s): N18.3 - CHRONIC KIDNEY DISEASE, STAGE 3 (MODERATE) Current Visit: No Status: Acute - Plan/Recommendations Plan: Assessed with Josette Bowie RNconditioner tender who has also been involved with patient care. Will attempt to meet with patient significant other to discuss goals of care and patient fragile condition. Oncology unable to biopsy patient at this time secondary to fragile state. Will reassess pain in the morning, currently with Ultram and although moans with movement is able to rest peacefully when not disturbed. [] minutes spent on this encounter with >50% of the time in counseling and coordination of care. Thank you for this very appropriate consult.
[2019-08-26] MEDS: Midodrine HCl 5 MG TAB PO SCH ×3 (09:23→20:08)
[2019-08-26] MEDS: Dronedarone HCl 400 MG TAB PO SCH (09:23)
[2019-08-26] MEDS: Fluconazole 100 MG TAB PO SCH (09:23)
[2019-08-26] MEDS: Pantoprazole 40 MG VIAL IVP SCH (09:26)
--- NOTE | 2019-08-26 11:01 | PDOC.HOSPP ---
- Subjective Encounter Date: 08/26/19 Encounter Time: 10:35 Subjective: f/u for suspected B-cell lymphoma, HCAP on Cefepime/Fluconazole with progressive decline, somnolent and weak. - Objective Vital Signs & Weight: Vital Signs (12 hours) Temp Pulse Resp Pulse Ox 08/26/19 08:00 97 F L 08/26/19 07:57 83 24 H 93 L 08/26/19 06:26 97.7 F 08/26/19 05:40 98.4 F 08/26/19 04:00 98.7 F 08/26/19 02:22 69 20 95 08/26/19 00:00 98.9 F Weight Admit Weight 145 lb Weight 141 lb 5.061 oz Most Recent Monitor Data Heart Rate from ECG 85 NIBP 112/55 NIBP BP-Mean 74 Respiration from ECG 28 SpO2 94 I&O: 08/25/19 08/26/19 08/27/19 06:59 06:59 06:59 Intake Total 691 2652 330 Output Total 802 2245 1070 Balance -111 407 -740 Result Diagrams: 08/26/19 03:29 08/26/19 03:29 Additional Labs: Microbiology 08/18/19 10:47 Stool Stool Occult Blood (CECELIA) - Final 08/14/19 18:35 Venous blood - Left Hand Blood Culture - Final NO GROWTH IN 5 DAYS 08/14/19 18:30 Venous blood - Left Arm Blood Culture - Final NO GROWTH IN 5 DAYS Laboratory Tests 08/17/19 08/20/19 08/21/19 04:52 04:23 04:24 WBC 9.9 10.2 Hgb 8.4 L 8.5 L Carbon Dioxide BUN Creatinine B-Natriuretic Peptide CA 27-29 Procalcitonin Cortisol 18.00 08/21/19 08/22/19 08/22/19 11:59 01:31 01:31 WBC Hgb Carbon Dioxide 17 L BUN 20 Creatinine 1.44 H B-Natriuretic Peptide 164.9 H CA 27-29 24.1 Procalcitonin Cortisol 08/22/19 08/23/19 01:32 03:48 WBC 13.8 H Hgb 9.3 L Carbon Dioxide BUN Creatinine B-Natriuretic Peptide CA 27-29 Procalcitonin 2.42 Cortisol EKG Reviewed by me: Yes (Tele - SR) Hospitalist ROS - Medication Medications: Active Medications Generic Name Dose Route Start Last Admin Trade Name Freq PRN Reason Stop Dose Admin Acetaminophen 1,000 mg 08/15/19 03:35 08/22/19 21:06 Tylenol PO 1,000 mg Q6H PRN Administration Mild Pain (1-3) Albuterol/Ipratropium 3 ml 08/25/19 18:30 08/26/19 07:57 Duoneb NEB 3 ml [id number] JONG Administration Diphenoxylate HCl/Atropine 2 tab 08/19/19 18:09 08/19/19 19:38 Lomotil PO 2 tab TIDPRN PRN Administration Diarrhea/Loose Stools Dronedarone 400 mg 08/25/19 08:00 08/26/19 09:23 Multaq PO 400 mg QAM-WM JONG Administration Fluconazole 100 mg 08/25/19 09:00 08/26/19 09:23 Diflucan PO 100 mg DAILY JONG Administration Hydrocortisone 50 mg 08/26/19 09:00 08/26/19 09:24 Cortef PO 50 mg BID JONG Administration Sodium Chloride 250 mls @ 999 mls/hr 08/20/19 11:47 08/22/19 22:50 Normal Saline 0.9% 250 Ml Bag IVPB 250 mls Q4H PRN Administration SBP <85 Cefepime HCl 1 gm/ Sodium 100 mls @ 200 mls/hr 08/23/19 15:00 08/25/19 15:16 Chloride IVPB 100 mls 1500 JONG Administration Sodium Bicarbonate 140 meq/ 1,140 mls @ 75 mls/hr 08/25/19 08:00 08/25/19 23: 53 Dextrose/Water IV 1,140 mls .[id number] JONG Administration Lorazepam 0.5 mg 08/25/19 16:47 08/26/19 06:31 Ativan PER TUBE 0.5 mg Q4H PRN Administration Anxiety Midodrine 10 mg 08/24/19 15:00 08/26/19 09:23 Proamatine PO 10 mg TID JONG Administration Pantoprazole Sodium 40 mg 08/24/19 09:00 08/26/19 09:26 Protonix IVP 40 mg DAILY JONG Administration Scopolamine 1.5 mg 08/25/19 17:00 02/03/20 18:06 Transderm Scop TD 1.5 mg Q3D JONG Administration Sodium Chloride 10 ml 08/15/19 21:00 08/26/19 09:27 Flush - Normal Saline IVF 10 ml Q12HR JONG Administration Tramadol HCl 50 mg 08/25/19 08:16 08/26/19 02:37 Ultram PO 50 mg Q12H PRN Administration Moderate Pain (4-6) - Exam General Appearance: ill appearing General - other findings: lethargic, non-verbal Eye: PERRL ENT: normocephalic atraumatic, no oropharyngeal lesions ENT - other findings: Dobhoff feeding tube in place Neck: supple, symmetric, no JVD Neck - other findings: + lymphadenopathy Heart: RRR, no gallops, no rubs, normal peripheral pulses Respiratory - other findings: diminished in bases, scattered rhonchi Gastrointestinal: soft, normal bowel sounds, no guarding, no rigidity Gastrointestinal - other findings: mild distention Extremities: 2+ LE edema Neurological - other findings: lethargic, moans, non-verbal Musculoskeletal: generalized weakness Psychiatric: somnolent, lethargic Hosp A/P (1) Acute respiratory failure with hypoxia Code(s): J96.01 - ACUTE RESPIRATORY FAILURE WITH HYPOXIA Status: Acute Plan: Multifactorial including PNA, COPD, continue Cefepime, add Levaquin, Dulera, continue Duonebs, check PCXR in am (2) Healthcare-associated pneumonia Code(s): J18.9 - PNEUMONIA, UNSPECIFIED ORGANISM Status: Acute Plan: Continue Cefepime, add Levaquin (3) Acute kidney injury superimposed on CKD Code(s): N17.9 - ACUTE KIDNEY FAILURE, UNSPECIFIED; N18.9 - CHRONIC KIDNEY DISEASE, UNSPECIFIED Status: Acute Plan: Persistent, continue low-volume IVF's, avoid nephrotoxic meds and limit contrast exposure, serial monitoring (4) Lymphadenopathy Code(s): R59.1 - GENERALIZED ENLARGED LYMPH NODES Status: Acute Plan: Suspected B-cell lymphoma and appears advanced (5) Suspected malignant neoplasm Code(s): R68.89 - OTHER GENERAL SYMPTOMS AND SIGNS Status: Acute (6) Hypotension Status: Acute (7) Hypoalbuminemia due to protein-calorie malnutrition Code(s): E46 - UNSPECIFIED PROTEIN-CALORIE MALNUTRITION Status: Acute (8) Macrocytic anemia Code(s): D53.9 - NUTRITIONAL ANEMIA, UNSPECIFIED Status: Chronic Plan: Longstanding anemia after review of medical records dating back 7 years, check B12/Folate (9) Thrombocytopenia Code(s): D69.6 - THROMBOCYTOPENIA, UNSPECIFIED Status: Chronic Plan: Hx of thrombocytopenia now worsening, check anti-platelet antibodies, avoid iatrogenic influence or Heparin/Lovenox - Plan plan discussed w/ family, continue antibiotics, social media sr strategy manager, speech therapy , respiratory therapy, DVT proph w/SCDs Continue supportive mgmt Continue Cefepime/Levaquin/Fluconazole Continue Midodrine Await actual tissue bx PT/OT for mobilization CM for SNF options Albumin 25gm IV q6h Palliative care consult AM lab: BMP, CBC, Mg++, PO3, TSH, FT4, B12/Folate, Ammonia Code Status: DNAR Discussed with family at bedside
[2019-08-26] MEDS: Cefepime 1 GM in Sodium Chloride 0.9% 100 ML IVPB SCH (16:10)
[2019-08-26] MEDS: Sodium Bicarbonate 140 MEQ in Dextrose 5% in Water 1,000 ML IV SCH (17:50)
[2019-08-27 03:58] LABS: ALT (SGPT) 42 U/L (8-55); AST (SGOT) 181 U/L (5-34); Albumin 2.8 g/dL (3.4-4.8); Alkaline Phosphatase 272 U/L (40-110); Anion Gap 17 mmol/L (10-20); BUN (Urea Nitrogen) 55 mg/dL (9.8-20.1); Bilirubin, Total 1.1 mg/dL (0.2-1.2); Calc. Creatinine Clearance 24 mL/min (70-130); Calcium 9.7 mg/dL (7.8-10.44); Carbon Dioxide 24 mmol/L (23-31); Chloride 102 mmol/L (98-107); Estimated GFR-MDRD 23; Globulin 1.8 g/dL (2.4-3.5); Glucose 148 mg/dL (83-110); Phosphorus 2.8 mg/dL (2.3-4.7); Protein, Total 4.6 g/dL (6.0-8.3); Sodium 140 mmol/L (136-145)
[2019-08-27 04:02] LABS: Potassium 2.6 mmol/L (3.5-5.1)
[2019-08-27 04:24] LABS: Free T4 (Free Thyroxine) 0.45 ng/dL (0.70-1.48)
[2019-08-27] MEDS ORDERED: Potassium Chloride 20 MEQ TAB PO SCH ×2 (04:45→09:00)
[2019-08-27 05:36] LABS: Anisocytosis MODERATE=16-30 cells (100X) (0-5/hpf); Band 27 % (5-11); Differential Comment Immature Cell(s); Hemoglobin 7.7 g/dL (12.0-16.0); Lymphocytes 27 % (21-51); MDiff Complete? YES; Mean Corpuscular HGB CONC 34.2 g/dL (32.0-36.0); Mean Corpuscular Hemoglobin 33.2 pg (27.0-31.0); Mean Corpuscular Volume 97.2 fL (78.0-98.0); Mean Platelet Volume 9.5 fL (7.4-10.4); Metamyelocyte 1 % (0-0); Monocytes 6 % (0-10); Neutrophil 23 % (42-75); Nucleated RBC 7 % (0); Platelet Count 42 thou/uL (130-400); Platelet Morphology Comment Appears Decreased; Reactive Lymphocytes 2 % (0-10); Red Blood Cell (RBC) Count 2.31 mill/uL (4.20-5.40); White Blood Cell (WBC) Count 18.8 thou/uL (4.8-10.8)
[2019-08-27] MEDS ORDERED: Sodium Bicarbonate Tab 325 MG TAB PER TUBE PRN (06:01)
[2019-08-27] MEDS ORDERED: Pancrelipase DR 12000 1 CAP FS PRN (06:01)
[2019-08-27] MEDS: Sodium Bicarbonate 140 MEQ in Dextrose 5% in Water 1,000 ML IV SCH ×2 (07:45→22:23)
[2019-08-27] MEDS: Mometasone/Formoterol 120 PUFF INHALER INH SCH ×2 (08:03→18:28)
--- NOTE | 2019-08-27 08:21 | RAD ---
SINGLE VIEW OF THE CHEST: COMPARISON: 08/24/2019. HISTORY: Respiratory failure and pneumonia. FINDINGS: A single view of the chest shows a normal-size cardiomediastinal silhouette with atherosclerotic calc ifications in the aorta. A Dobbhoff tube is seen with its tip in the stomach. There is a moderate r ight pleural effusion. This has increased in size compared to the prior exam. IMPRESSION: Moderate right pleural effusion. POS: CET
--- NOTE | 2019-08-27 09:03 | PDOC.PALPN ---
Palliative Progress Note - Subjective Patient more lethargic, labored respirations, minimal movement, total assist for repositioning. Nutritional support via dobhoff to right nare. Opens eyes but non verbal. - Objective Vital Signs: Vital Signs - Most Recent Temp Pulse Resp BP Pulse Ox 97.3 F L 80 25 H 104/42 L 100 08/27/19 04:00 08/27/19 07:58 08/27/19 07:58 08/25/19 11:19 08/27/19 07:58 - Physical Exam Constitutional: confusion, encephalitic, mild distress HEENT: moist MMs Respiratory: diminished lung sound, labored respirations Deviation from normal: adventicious lung sounds bilaterally Cardiovascular: RRR Gastrointestinal: non-tender, positive bowel sounds Genitourinary: chance catheter Musculoskeletal: edema present, diffuse muscle atrophy Neurology: moves all 4 limbs Deviation from normal: lymphadenopathy Skin: bruising, fragile, friable Deviation from normal: encephalopathic - Assessment (1) Palliative care encounter Code(s): Z51.5 - ENCOUNTER FOR PALLIATIVE CARE Current Visit: Yes Status: Acute (2) Physical deconditioning Code(s): R53.81 - OTHER MALAISE Current Visit: Yes Status: Acute (3) Acute respiratory failure with hypoxia Code(s): J96.01 - ACUTE RESPIRATORY FAILURE WITH HYPOXIA Current Visit: Yes Status: Acute (4) Atrial fibrillation with RVR Code(s): I48.91 - UNSPECIFIED ATRIAL FIBRILLATION Current Visit: Yes Status : Acute (5) B-cell abnormality Code(s): D72.9 - DISORDER OF WHITE BLOOD CELLS, UNSPECIFIED Current Visit: Yes Status: Acute (6) Lymphadenopathy Code(s): R59.1 - GENERALIZED ENLARGED LYMPH NODES Current Visit: Yes Status : Acute (7) Suspected malignant neoplasm Code(s): R68.89 - OTHER GENERAL SYMPTOMS AND SIGNS Current Visit: Yes Status : Acute (8) CKD (chronic kidney disease) stage 3, GFR 30-59 ml/min Code(s): N18.3 - CHRONIC KIDNEY DISEASE, STAGE 3 (MODERATE) Current Visit: No Status: Acute - Plan Plan: Patient has 4 children she is estranged from, her son from [place] came in to see her. As per the sons significant other the patient called him a week ago and indicated she was not doing well. Note worthy is the patient and Pranav have been together for 30+year and have not have significant contact with family , live out on some land and are isolated. Visited with patient son and Pranav ( her significant other and her MPOA) Education in relation to disease processes and poor outcomes. Pranav wishes to continue with aggressive measures, hopeful for Ms Jon to return to her previous state prior to admission to the hospital. *Aggressive measures to treat symptoms *Continue to support and educate in relation to guarded prognosis Josette Bowie RNbattery plate assembler to continue to follow, please see notes in note section. [60] minutes spent on this encounter with >50% of the time in counseling and coordination of care. - ROS Non Response: due to mental status
[2019-08-27 09:15] LABS: Anion Gap 19 mmol/L (10-20); BUN (Urea Nitrogen) 55 mg/dL (9.8-20.1); Calc. Creatinine Clearance 25 mL/min (70-130); Calcium 9.8 mg/dL (7.8-10.44); Carbon Dioxide 23 mmol/L (23-31); Chloride 102 mmol/L (98-107); Estimated GFR-MDRD 24; Glucose 124 mg/dL (83-110); Magnesium 1.9 mg/dL (1.6-2.6); Potassium 3.1 mmol/L (3.5-5.1); Sodium 141 mmol/L (136-145)
--- NOTE | 2019-08-27 09:51 | PRG ---
DATE OF SERVICE: 08/27/2019 SUBJECTIVE: The patient continues to struggle and does not seem to be getting any better. OBJECTIVE: VITAL SIGNS: Temperature 97.3, pulse 82, blood pressure 118/70, O2 saturation 97% on nasal cannula. HEENT: Remarkable for bitemporal wasting. NECK: No JVD. LUNGS: Coarse breath sounds. CARDIAC: S1 and S2. Regular. ABDOMEN: Soft. EXTREMITIES: Muscle wasting. LABORATORY DATA: Sodium 141, potassium 3.1, chloride 102, CO2 of 23, BUN 55, creatinine 2.0, glucose 124. White blood cell count 18.8, hematocrit 22.5, platelet count 42. ASSESSMENT: 1. Continued decline despite aggressive treatment. 2. Probable B-cell lymphoma. 3. Metabolic acidosis. PLAN: 1. Move out to [facility]. 2. Continue current care. 3. I really think she needs to be on a more palliative plan; however, apparently, her boyfriend or is giving us some issues in that regard. Job ID: [id number]
[2019-08-27] MEDS: Midodrine HCl 5 MG TAB PO SCH ×3 (09:57→20:11)
[2019-08-27] MEDS: traMADol HCl 50 MG TAB PO PRN (09:57)
[2019-08-27] MEDS: Fluconazole 100 MG TAB PO SCH (09:58)
[2019-08-27] MEDS: Hydrocortisone 10 mg Tablet PO SCH ×2 (09:58→20:11)
[2019-08-27] MEDS: Dronedarone HCl 400 MG TAB PO SCH (09:58)
[2019-08-27] MEDS: Pantoprazole 40 MG VIAL IVP SCH (09:59)
[2019-08-27] MEDS: Lorazepam 0.5 MG TAB PER TUBE PRN (13:55)
[2019-08-27] MEDS: Morphine 4 MG/ML VIAL SLOW IVP PRN ×4 (13:55→22:20)
[2019-08-27] MEDS: Cefepime 1 GM in Sodium Chloride 0.9% 100 ML IVPB SCH (15:01)
[2019-08-27] MEDS ORDERED: Furosemide 20 MG/2 ML VIAL SLOW IVP SCH (15:30)
--- NOTE | 2019-08-27 18:39 | PDOC.HOSPP ---
- Subjective Encounter Date: 08/27/19 Encounter Time: 14:45 Subjective: f/u for suspected B-cell lymphoma, HCAP on Cefepime/Levaquin/Fluconazole. Remains lethargic and receiving TF's but increased gastric residual noted per nursing. - Objective Vital Signs & Weight: Vital Signs (12 hours) Temp Pulse Resp Pulse Ox 08/27/19 18:15 86 16 96 08/27/19 16:00 98.3 F 08/27/19 15:33 90 22 H 98 08/27/19 12:00 98.0 F 08/27/19 11:39 87 23 H 99 08/27/19 08:00 98.0 F 97 08/27/19 07:58 80 25 H 100 Weight Admit Weight 145 lb Weight 141 lb 5.061 oz Most Recent Monitor Data Heart Rate from ECG 89 NIBP 100/61 NIBP BP-Mean 74 Respiration from ECG 20 SpO2 96 I&O: 08/26/19 08/27/19 08/28/19 06:59 06:59 06:59 Intake Total 2652 2784 1319 Output Total 2245 2810 585 Balance 407 -26 734 Result Diagrams: 08/27/19 03:22 08/27/19 08:50 Additional Labs: Microbiology 08/18/19 10:47 Stool Stool Occult Blood (CECELIA) - Final 08/14/19 18:35 Venous blood - Left Hand Blood Culture - Final NO GROWTH IN 5 DAYS 08/14/19 18:30 Venous blood - Left Arm Blood Culture - Final NO GROWTH IN 5 DAYS Laboratory Tests 08/17/19 08/20/19 08/21/19 04:52 04:23 04:24 WBC 9.9 10.2 Hgb 8.4 L 8.5 L Plt Count Band Neuts % (Manual) Carbon Dioxide BUN Creatinine Magnesium B-Natriuretic Peptide CA 27-29 Vitamin B12 Folate Procalcitonin Free T4 TSH 3rd Generation Cortisol 18.00 08/21/19 08/22/19 08/22/19 11:59 01:31 01:31 WBC Hgb Plt Count Band Neuts % (Manual) Carbon Dioxide 17 L BUN 20 Creatinine 1.44 H Magnesium B-Natriuretic Peptide 164.9 H CA 27-29 24.1 Vitamin B12 Folate Procalcitonin Free T4 TSH 3rd Generation Cortisol 08/22/19 08/23/19 08/26/19 01:32 03:48 03:29 WBC 13.8 H 18.0 H Hgb 9.3 L 7.7 L Plt Count 18 L* Band Neuts % (Manual) 16 H Carbon Dioxide BUN Creatinine Magnesium B-Natriuretic Peptide CA 27-29 Vitamin B12 Folate Procalcitonin 2.42 Free T4 TSH 3rd Generation Cortisol 08/27/19 08/27/19 08/27/19 03:22 03:22 03:22 WBC Hgb Plt Count Band Neuts % (Manual) 27 H Carbon Dioxide BUN Creatinine Magnesium B-Natriuretic Peptide CA 27-29 Vitamin B12 Folate 3.80 L Procalcitonin Free T4 0.45 L TSH 3rd Generation 2.0136 Cortisol 08/27/19 08/27/19 03:22 08:50 WBC Hgb Plt Count Band Neuts % (Manual) Carbon Dioxide BUN Creatinine Magnesium 1.9 B-Natriuretic Peptide CA 27-29 Vitamin B12 153 L Folate Procalcitonin Free T4 TSH 3rd Generation Cortisol Radiology Reviewed by me: Yes (PCXR - moderate R pleural effusion) EKG Reviewed by me: Yes (Tele - SR) Hospitalist ROS - Medication Medications: Active Medications Generic Name Dose Route Start Last Admin Trade Name Freq PRN Reason Stop Dose Admin Acetaminophen 1,000 mg 08/15/19 03:35 08/22/19 21:06 Tylenol PO 1,000 mg Q6H PRN Administration Mild Pain (1-3) Albuterol/Ipratropium 3 ml 08/25/19 18:30 08/27/19 18:15 Duoneb NEB 3 ml [id number] JONG Administration Lipase/Protease/Amylase 1 cap 08/27/19 06:01 08/27/19 06:[place] [id number] FS 1 cap .PER PROTOCOL PRN Administration TUBE OCCLUSION PROTOCOL Diphenoxylate HCl/Atropine 2 tab 08/19/19 18:09 08/19/19 19:38 Lomotil PO 2 tab TIDPRN PRN Administration Diarrhea/Loose Stools Dronedarone 400 mg 08/25/19 08:00 08/27/19 09:58 Multaq PO 400 mg QAM-WM JONG Administration Fluconazole 100 mg 08/25/19 09:00 08/27/19 09:58 Diflucan PO 100 mg DAILY JONG Administration Hydrocortisone 50 mg 08/26/19 09:00 08/27/19 09:58 Cortef PO 50 mg BID JONG Administration Sodium Chloride 250 mls @ 999 mls/hr 08/20/19 11:47 08/22/19 22:50 Normal Saline 0.9% 250 Ml Bag IVPB 250 mls Q4H PRN Administration SBP <85 Cefepime HCl 1 gm/ Sodium 100 mls @ 200 mls/hr 08/23/19 15:00 08/27/19 15:01 Chloride IVPB 100 mls 1500 JONG Administration Sodium Bicarbonate 140 meq/ 1,140 mls @ 75 mls/hr 08/25/19 08:00 08/27/19 07: 45 Dextrose/Water IV 1,140 mls .[id number] JONG Administration Levofloxacin 250 mg/ Device 50 mls @ 100 mls/hr 08/26/19 20:00 08/26/19 20:24 IVPB 50 mls Q24HR JONG Administration Lorazepam 0.5 mg 08/26/19 19:51 08/27/19 13:55 Ativan PER TUBE 0.5 mg Q8H PRN Administration Anxiety Midodrine 10 mg 08/24/19 15:00 08/27/19 15:02 Proamatine PO 10 mg TID JONG Administration Mometasone Furoate/Formoterol Fumar 2 puff 08/27/19 06:30 08/27/19 18:28 Dulera 200 Mcg/5 Mcg Inhaler INH Not Given BID-RT JONG Morphine Sulfate 4 mg 08/27/19 13:47 08/27/19 15:00 Morphine SLOW IVP 4 mg Q1H PRN Administration dyspnea Scopolamine 1.5 mg 08/25/19 17:00 08/25/19 18:06 Transderm Scop TD 1.5 mg Q3D JONG Administration Sodium Bicarbonate 650 mg 08/27/19 06:01 08/27/19 06:32 Bicarbonate, Sodium PER TUBE 650 mg .PER PROTOCOL PRN Administration ENTERAL TUBE OCCLUSION Sodium Chloride 10 ml 08/15/19 21:00 08/27/19 10:00 Flush - Normal Saline IVF 10 ml Q12HR JONG Administration Tramadol HCl 50 mg 08/25/19 08:16 08/27/19 09:57 Ultram PO 50 mg Q12H PRN Administration Moderate Pain (4-6) - Exam General Appearance: ill appearing General - other findings: somnolent, does not respond to voice ENT: normocephalic atraumatic, no oropharyngeal lesions ENT - other findings: NGT in nares Neck: supple, symmetric, no thyromegaly Neck - other findings: + lymphadenopathy Heart: RRR, no gallops, no rubs, normal peripheral pulses Respiratory: tachypneic Respiratory - other findings: diminished in bases, coarse sounds transmitted from upper airway Gastrointestinal: soft, non-tender, non-distended, normal bowel sounds Extremities: no cyanosis, 2+ LE edema Neurological - other findings: unresponsive to voice/stimuli Musculoskeletal: generalized weakness Psychiatric: somnolent, lethargic Hosp A/P (1) Acute respiratory failure with hypoxia Code(s): J96.01 - ACUTE RESPIRATORY FAILURE WITH HYPOXIA Status: Acute Plan: Persistent, continue pulmonary support, Chao Hernandez (2) Healthcare-associated pneumonia Code(s): J18.9 - PNEUMONIA, UNSPECIFIED ORGANISM Status: Acute Plan: Continue Cefepime/Levaquin, O2 support (3) Acute kidney injury superimposed on CKD Code(s): N17.9 - ACUTE KIDNEY FAILURE, UNSPECIFIED; N18.9 - CHRONIC KIDNEY DISEASE, UNSPECIFIED Status: Acute (4) Lymphadenopathy Code(s): R59.1 - GENERALIZED ENLARGED LYMPH NODES Status: Acute Plan: Suspected B-cell lymphoma appearing advanced (5) Suspected malignant neoplasm Code(s): R68.89 - OTHER GENERAL SYMPTOMS AND SIGNS Status: Acute (6) Hypotension Status: Acute Plan: Improved with IVF's (7) Hypoalbuminemia due to protein-calorie malnutrition Code(s): E46 - UNSPECIFIED PROTEIN-CALORIE MALNUTRITION Status: Acute (8) Macrocytic anemia Code(s): D53.9 - NUTRITIONAL ANEMIA, UNSPECIFIED Status: Chronic (9) Thrombocytopenia Code(s): D69.6 - THROMBOCYTOPENIA, UNSPECIFIED Status: Chronic Plan: Mild improvement, acute/chronic condition when reviewing the EMR - Plan continue antibiotics, PT/OT, social worker aide, respiratory therapy, DVT proph w/ SCDs Continue supportive mgmt Continue Cefepime/Levaquin/Fluconazole Continue Midodrine Await actual tissue bx PT/OT for mobilization CM for SNF options Albumin 25gm IV q6h Palliative care consult AM lab: BMP, CBC, Mg++, PO3, TSH, FT4, B12/Folate, Ammonia Code Status: DNAR Orestesix 10mg IV x 1 dose
[2019-08-28 05:04] LABS: Hemoglobin 7.3 g/dL (12.0-16.0); Mean Corpuscular Hemoglobin 32.6 pg (27.0-31.0); Mean Platelet Volume 10.9 fL (7.4-10.4); Platelet Count 21 thou/uL (130-400); RBC Distribution Width 16.2 % (11.5-14.5); Red Blood Cell (RBC) Count 2.23 mill/uL (4.20-5.40); White Blood Cell (WBC) Count 18.1 thou/uL (4.8-10.8)
[2019-08-28 05:06] LABS: Band 13 % (5-11); Lymphocytes 34 % (21-51); MDiff Complete? YES; Monocytes 2 % (0-10); Neutrophil 20 % (42-75); Platelet Morphology Comment Appears Adequate; Reactive Lymphocytes 8 % (0-10)
[2019-08-28] MEDS: Levothyroxine Sodium 75 MCG TAB PO SCH (05:28)
[2019-08-28 06:13] LABS: ALT (SGPT) 35 U/L (8-55); AST (SGOT) 132 U/L (5-34); Albumin 2.5 g/dL (3.4-4.8); Alkaline Phosphatase 218 U/L (40-110); Anion Gap 18 mmol/L (10-20); BUN (Urea Nitrogen) 59 mg/dL (9.8-20.1); Bilirubin, Total 0.6 mg/dL (0.2-1.2); Calc. Creatinine Clearance 24 mL/min (70-130); Calcium 9.2 mg/dL (7.8-10.44); Carbon Dioxide 28 mmol/L (23-31); Chloride 100 mmol/L (98-107); Estimated GFR-MDRD 22; Globulin 1.9 g/dL (2.4-3.5); Glucose 113 mg/dL (83-110); Phosphorus 4.7 mg/dL (2.3-4.7); Potassium 3.6 mmol/L (3.5-5.1); Protein, Total 4.4 g/dL (6.0-8.3); Sodium 142 mmol/L (136-145)
[2019-08-28] MEDS: Mometasone/Formoterol 120 PUFF INHALER INH SCH ×2 (08:02→19:18)
[2019-08-28] MEDS: Cyanocobalamin (Vitamin B-12) 1,000 MCG TAB PO SCH (08:33)
[2019-08-28] MEDS: Midodrine HCl 5 MG TAB PO SCH ×3 (08:33→22:07)
[2019-08-28] MEDS: Fluconazole 100 MG TAB PO SCH (08:33)
[2019-08-28] MEDS: Dronedarone HCl 400 MG TAB PO SCH (08:33)
[2019-08-28] MEDS: Folic Acid/Vit B Comp W-C PO SCH (08:33)
--- NOTE | 2019-08-28 08:33 | PRG ---
DATE OF SERVICE: 08/28/2019 SUBJECTIVE: The patient appears comfortable and close to expiring. OBJECTIVE: VITAL SIGNS: On exam, temperature is 98.9, pulse 70, and blood pressure 99/53. Intake 2357, output 802. HEENT: Remarkable for bitemporal wasting. NECK: No abnormalities. LUNGS: Coarse breath sounds bilaterally. CARDIOVASCULAR: S1 and S2. Regular. ABDOMEN: Soft. LABORATORY DATA: Sodium 142, potassium 3.6, chloride 100, CO2 of 28, BUN 59, creatinine 2.1, and glucose 113. White blood cell count 18.1, hematocrit 22.1, and platelet count 21. ASSESSMENT: 1. Severe protein-calorie malnutrition. 2. Failure to thrive. 3. Probable B-cell lymphoma. PLAN: We have basically switched to a palliative mode because the patient has no hope of recovery from this. She expressed wishes not to have aggressive care in the event of eventual decline. At this point, we really have nothing to offer aside from the comfort measures and I would expect her to pass away shortly. Job ID: [id number]
[2019-08-28] MEDS: Pantoprazole 40 MG GRANULES PACKET PER TUBE SCH (08:34)
[2019-08-28] MEDS: Hydrocortisone 10 mg Tablet PO SCH ×2 (09:01→22:07)
[2019-08-28] MEDS: Sodium Bicarbonate 140 MEQ in Dextrose 5% in Water 1,000 ML IV SCH (15:06)
[2019-08-28] MEDS: Cefepime 1 GM in Sodium Chloride 0.9% 100 ML IVPB SCH (15:06)
[2019-08-28] MEDS: Scopolamine 1.5 mg/72 hour Patch TD SCH (18:19)
--- NOTE | 2019-08-28 19:36 | PDOC.HOSPP ---
- Subjective Encounter Date: 08/28/19 Encounter Time: 09:25 Subjective: f/u for HCAP on Cefepime/Levaquin/Diflucan but continuing clinical decline. Nursing reports pt remains somnolent and received Morphine sulfate IV overnight. - Objective Vital Signs & Weight: Vital Signs (12 hours) Temp Pulse Resp Pulse Ox 08/28/19 19:27 98.4 F 08/28/19 18:53 84 17 95 08/28/19 16:18 97.8 F 08/28/19 14:16 82 12 95 08/28/19 10:47 69 7 L 95 08/28/19 09:00 97.6 F 08/28/19 08:00 69 11 L 97 Weight Admit Weight 145 lb Weight 141 lb 5.061 oz Most Recent Monitor Data Heart Rate from ECG 87 NIBP 107/60 NIBP BP-Mean 75 Respiration from ECG 22 SpO2 97 I&O: 08/27/19 08/28/19 08/29/19 06:59 06:59 06:59 Intake Total 2784 2357 180 Output Total 2810 817 325 Balance -26 1540 -145 Result Diagrams: 08/28/19 04:43 08/28/19 03:42 Additional Labs: Accuchecks 08/27/19 20:03 POC Glucose 144 H Microbiology 08/18/19 10:47 Stool Stool Occult Blood (CECELIA) - Final 08/14/19 18:35 Venous blood - Left Hand Blood Culture - Final NO GROWTH IN 5 DAYS 08/14/19 18:30 Venous blood - Left Arm Blood Culture - Final NO GROWTH IN 5 DAYS Laboratory Tests 08/17/19 08/20/19 08/21/19 04:52 04:23 04:24 WBC 9.9 10.2 Hgb 8.4 L 8.5 L Plt Count Band Neuts % (Manual) Carbon Dioxide BUN Creatinine Magnesium B-Natriuretic Peptide CA 27-29 Vitamin B12 Folate Procalcitonin Free T4 TSH 3rd Generation Cortisol 18.00 08/21/19 08/22/19 08/22/19 11:59 01:31 01:31 WBC Hgb Plt Count Band Neuts % (Manual) Carbon Dioxide 17 L BUN 20 Creatinine 1.44 H Magnesium B-Natriuretic Peptide 164.9 H CA 27-29 24.1 Vitamin B12 Folate Procalcitonin Free T4 TSH 3rd Generation Cortisol 08/22/19 08/23/19 08/26/19 01:32 03:48 03:29 WBC 13.8 H 18.0 H Hgb 9.3 L 7.7 L Plt Count 18 L* Band Neuts % (Manual) 16 H Carbon Dioxide BUN Creatinine Magnesium B-Natriuretic Peptide CA 27-29 Vitamin B12 Folate Procalcitonin 2.42 Free T4 TSH 3rd Generation Cortisol 08/27/19 08/27/19 08/27/19 03:22 03:22 03:22 WBC Hgb Plt Count Band Neuts % (Manual) 27 H Carbon Dioxide BUN Creatinine Magnesium B-Natriuretic Peptide CA 27-29 Vitamin B12 Folate 3.80 L Procalcitonin Free T4 0.45 L TSH 3rd Generation 2.0136 Cortisol 08/27/19 08/27/19 03:22 08:50 WBC Hgb Plt Count Band Neuts % (Manual) Carbon Dioxide BUN Creatinine Magnesium 1.9 B-Natriuretic Peptide CA 27-29 Vitamin B12 153 L Folate Procalcitonin Free T4 TSH 3rd Generation Cortisol EKG Reviewed by me: Yes (Tele - SR) Hospitalist ROS - Medication Medications: Active Medications Generic Name Dose Route Start Last Admin Trade Name Freq PRN Reason Stop Dose Admin Acetaminophen 1,000 mg 08/15/19 03:35 08/22/19 21:06 Tylenol PO 1,000 mg Q6H PRN Administration Mild Pain (1-3) Albuterol/Ipratropium 3 ml 08/25/19 18:30 08/28/19 18:53 Duoneb NEB 3 ml [id number] JONG Administration Lipase/Protease/Amylase 1 cap 08/27/19 06:01 08/27/19 06:[place] [address] FS 1 cap .PER PROTOCOL PRN Administration TUBE OCCLUSION PROTOCOL Cyanocobalamin 1,000 mcg 08/28/19 09:00 08/28/19 08:33 Vitamin B-12 PO 1,000 mcg DAILY JONG Administration Diphenoxylate HCl/Atropine 2 tab 08/19/19 18:09 08/19/19 19:38 Lomotil PO 2 tab TIDPRN PRN Administration Diarrhea/Loose Stools Dronedarone 400 mg 08/25/19 08:00 08/28/19 08:33 Multaq PO 400 mg QAM-WM JONG Administration Fluconazole 100 mg 08/25/19 09:00 08/28/19 08:33 Diflucan PO 100 mg DAILY JONG Administration Hydrocortisone 50 mg 08/26/19 09:00 08/28/19 09:01 Cortef PO 50 mg BID JONG Administration Sodium Chloride 250 mls @ 999 mls/hr 08/20/19 11:47 08/22/19 22:50 Normal Saline 0.9% 250 Ml Bag IVPB 250 mls Q4H PRN Administration SBP <85 Cefepime HCl 1 gm/ Sodium 100 mls @ 200 mls/hr 08/23/19 15:00 08/28/19 15:06 Chloride IVPB 100 mls 1500 JONG Administration Sodium Bicarbonate 140 meq/ 1,140 mls @ 75 mls/hr 08/25/19 08:00 08/28/19 15: 06 Dextrose/Water IV 1,140 mls .[id number] JONG Administration Levofloxacin 250 mg/ Device 50 mls @ 100 mls/hr 08/26/19 20:00 08/27/19 19:55 IVPB 50 mls Q24HR JONG Administration Levothyroxine Sodium 75 mcg 08/28/19 06:00 08/28/19 05:28 Synthroid PO 75 mcg 0600 JONG Administration Lorazepam 0.5 mg 08/26/19 19:51 08/27/19 13:55 Ativan PER TUBE 0.5 mg Q8H PRN Administration Anxiety Midodrine 10 mg 08/24/19 15:00 08/28/19 15:08 Proamatine PO 10 mg TID JONG Administration Mometasone Furoate/Formoterol Fumar 2 puff 08/27/19 06:30 08/28/19 19:18 Dulera 200 Mcg/5 Mcg Inhaler INH Not Given BID-RT JONG Morphine Sulfate 4 mg 08/27/19 13:47 08/27/19 22:20 Morphine SLOW IVP 4 mg Q1H PRN Administration dyspnea Pantoprazole Sodium 40 mg 08/28/19 09:00 08/28/19 08:34 Protonix PER TUBE 40 mg DAILY JONG Administration Scopolamine 1.5 mg 08/25/19 17:00 08/28/19 18:19 Transderm Scop TD 1.5 mg Q3D JONG Administration Sodium Bicarbonate 650 mg 08/27/19 06:01 08/27/19 06:32 Bicarbonate, Sodium PER TUBE 650 mg .PER PROTOCOL PRN Administration ENTERAL TUBE OCCLUSION Sodium Chloride 10 ml 08/15/19 21:00 08/28/19 09:02 Flush - Normal Saline IVF 10 ml Q12HR JONG Administration Tramadol HCl 50 mg 08/25/19 08:16 08/27/19 09:57 Ultram PO 50 mg Q12H PRN Administration Moderate Pain (4-6) Vitamin B Complex/Vit C/Folic Acid 1 tab 08/28/19 09:00 08/28/19 08:33 Nephro-Anatoliy Tablet PO 1 tab DAILY JONG Administration - Exam General Appearance: ill appearing General - other findings: somnolent, unresponsive Eye: PERRL ENT: normocephalic atraumatic, no oropharyngeal lesions Neck: supple, symmetric, no JVD, no thyromegaly Heart: RRR, no murmur, no gallops, no rubs, diminshed peripheral pulses Respiratory - other findings: coarse sounds bilat Gastrointestinal: soft, non-distended, no palpable masses, no guarding, diminished bowl sounds Extremities: 1+ LE edema Extremities - other findings: UE edema noted Skin: normal turgor Neurological - other findings: somnolent, unresponsive, aphasic Musculoskeletal: generalized weakness, diffuse muscle atrophy Hosp A/P (1) Acute respiratory failure with hypoxia Code(s): J96.01 - ACUTE RESPIRATORY FAILURE WITH HYPOXIA Status: Acute Plan: Persistent with HCAP and R pleural effusion, continue Cefepime/Levaquin/ Fluconazole, Duonebs, Hydrocortisone (2) Healthcare-associated pneumonia Code(s): J18.9 - PNEUMONIA, UNSPECIFIED ORGANISM Status: Acute Plan: See above, continue IV abx (3) Acute kidney injury superimposed on CKD Code(s): N17.9 - ACUTE KIDNEY FAILURE, UNSPECIFIED; N18.9 - CHRONIC KIDNEY DISEASE, UNSPECIFIED Status: Acute Plan: Persistent, low-volume IVF's (4) Lymphadenopathy Code(s): R59.1 - GENERALIZED ENLARGED LYMPH NODES Status: Acute Plan: Suspected advanced B-cell lymphoma (5) Suspected malignant neoplasm Code(s): R68.89 - OTHER GENERAL SYMPTOMS AND SIGNS Status: Acute (6) Hypotension Status: Acute Plan: Persistent, multifactorial, no BP meds, likely end-stage process (7) Hypoalbuminemia due to protein-calorie malnutrition Code(s): E46 - UNSPECIFIED PROTEIN-CALORIE MALNUTRITION Status: Chronic (8) Macrocytic anemia Code(s): D53.9 - NUTRITIONAL ANEMIA, UNSPECIFIED Status: Chronic (9) Thrombocytopenia Code(s): D69.6 - THROMBOCYTOPENIA, UNSPECIFIED Status: Chronic - Plan continue antibiotics, psychologist social, DVT proph w/SCDs Continue supportive mgmt Continue Cefepime/Levaquin/Fluconazole Continue Midodrine CM for SNF options Albumin 25gm IV q6h PRN hypotension Palliative care consult AM lab: BMP, CBC Code Status: DNAR Poor prognosis with clinical deterioration accelerating
[2019-08-28] MEDS: Morphine 4 MG/ML VIAL SLOW IVP PRN (22:07)
[2019-08-29 03:56] LABS: Phosphorus 3.9 mg/dL (2.3-4.7)
[2019-08-29] MEDS: Levothyroxine Sodium 75 MCG TAB PO SCH (05:06)
[2019-08-29] MEDS: Morphine 4 MG/ML VIAL SLOW IVP PRN ×4 (05:06→16:19)
[2019-08-29] MEDS: Sodium Bicarbonate 140 MEQ in Dextrose 5% in Water 1,000 ML IV SCH (06:45)
[2019-08-29] MEDS: Mometasone/Formoterol 120 PUFF INHALER INH SCH (07:27)
--- NOTE | 2019-08-29 08:39 | PRG ---
DATE OF SERVICE: 08/29/2019 SUBJECTIVE: Surprisingly, she did wake up to voice this morning. She cannot verbalize. OBJECTIVE: VITAL SIGNS: On exam, temperature is 98.2, pulse 91, blood pressure 91/57, and O2 saturation 94%. HEENT: Remarkable for severe bitemporal wasting. Oral mucous membranes are dry. NECK: No JVD. LUNGS: Coarse breath sounds. CARDIAC: S1 and S2. Regular. ABDOMEN: Soft. ASSESSMENT: 1. Generalized failure to thrive with severe protein-calorie malnutrition. 2. Probable B-cell lymphoma. PLAN: Right now, she is receiving very conservative care in the form of antibiotics, midodrine to keep her blood pressure up and hydrocortisone. I doubt she will improve. We will keep an eye on her while she is in the [facility]. Job ID: [id number]
[2019-08-29] MEDS: Midodrine HCl 5 MG TAB PO SCH (10:28)
[2019-08-29] MEDS: Dronedarone HCl 400 MG TAB PO SCH (10:28)
[2019-08-29] MEDS: Hydrocortisone 10 mg Tablet PO SCH (10:28)
[2019-08-29] MEDS: Folic Acid/Vit B Comp W-C PO SCH (10:28)
[2019-08-29] MEDS: Cyanocobalamin (Vitamin B-12) 1,000 MCG TAB PO SCH (10:28)
[2019-08-29] MEDS: Fluconazole 100 MG TAB PO SCH (10:28)
[2019-08-29] MEDS: Pantoprazole 40 MG GRANULES PACKET PER TUBE SCH (10:29)
[2019-08-29] MEDS ORDERED: Lorazepam 2 MG/ML VIAL SLOW IVP PRN (13:42)
--- NOTE | 2019-08-29 14:23 | PDOC.PALPN ---
Palliative Progress Note - Subjective Patient opens eyes, but unable to give verbal response. Labored respirations, requires assistance for any movement or ALD's. Pranav BAXTER at bedside. - Objective Vital Signs: Vital Signs - Most Recent Temp Pulse Resp BP Pulse Ox 97.3 F L 88 21 H 104/42 L 91 L 08/29/19 11:48 08/29/19 11:04 08/29/19 11:04 08/25/19 11:19 08/29/19 11:04 - Physical Exam Constitutional: cachectic, emaciated, encephalitic, ill appearing, moderate distress HEENT: EOMI, moist MMs, sclera anicteric Respiratory: accessory muscle use, labored respirations Cardiovascular: RRR Gastrointestinal: incontinent Genitourinary: chance catheter Musculoskeletal: edema present, muscle wasting Deviation from normal: palpable nodes Skin: bruising, fragile, friable - Assessment (1) Palliative care encounter Code(s): Z51.5 - ENCOUNTER FOR PALLIATIVE CARE Current Visit: Yes Status: Acute (2) Physical deconditioning Code(s): R53.81 - OTHER MALAISE Current Visit: Yes Status: Acute (3) Acute respiratory failure with hypoxia Code(s): J96.01 - ACUTE RESPIRATORY FAILURE WITH HYPOXIA Current Visit: Yes Status: Acute (4) Atrial fibrillation with RVR Code(s): I48.91 - UNSPECIFIED ATRIAL FIBRILLATION Current Visit: Yes Status : Acute (5) B-cell abnormality Code(s): D72.9 - DISORDER OF WHITE BLOOD CELLS, UNSPECIFIED Current Visit: Yes Status: Acute (6) Lymphadenopathy Code(s): R59.1 - GENERALIZED ENLARGED LYMPH NODES Current Visit: Yes Status : Acute (7) Suspected malignant neoplasm Code(s): R68.89 - OTHER GENERAL SYMPTOMS AND SIGNS Current Visit: Yes Status : Acute (8) CKD (chronic kidney disease) stage 3, GFR 30-59 ml/min Code(s): N18.3 - CHRONIC KIDNEY DISEASE, STAGE 3 (MODERATE) Current Visit: No Status: Acute - Plan Plan: Revisited Goals of care with Pranav BAXTER, reinforced he is to carry forth her wishes. Extensive education in relation to disease process and terminal condition. Josette Bowie RNbutter maker also present. He expressed understanding that she was not improving and confirmed that it would not be unexpected that she would , however he is not wanting to transition to comfort measures. [45] minutes spent on this encounter with >50% of the time in counseling and coordination of care. - ROS Non Response: due to mental status
--- NOTE | 2019-08-29 14:31 | PDOC.PALPN ---
Palliative Progress Note - Subjective Labored respirations, opens eyes to stimulus but non verbal and encephalopathic. - Objective Vital Signs: Vital Signs - Most Recent Temp Pulse Resp BP Pulse Ox 97.3 F L 88 21 H 104/42 L 91 L 08/29/19 11:48 08/29/19 11:04 08/29/19 11:04 08/25/19 11:19 08/29/19 11:04 - Physical Exam Constitutional: cachectic, emaciated, encephalitic, ill appearing, moderate distress HEENT: EOMI, moist MMs, sclera anicteric Deviation from normal: Tearing intermittantly Respiratory: accessory muscle use, diminished lung sound, labored respirations Deviation from normal: Apnea greater than 6 seconds, irr respirations Cardiovascular: RRR Gastrointestinal: positive bowel sounds, incontinent Genitourinary: chance catheter Musculoskeletal: edema present, muscle wasting Deviation from normal: Nodes palpable right cervical Skin: bruising, fragile, friable - Assessment (1) Palliative care encounter Code(s): Z51.5 - ENCOUNTER FOR PALLIATIVE CARE Current Visit: Yes Status: Acute (2) Physical deconditioning Code(s): R53.81 - OTHER MALAISE Current Visit: Yes Status: Acute (3) Acute respiratory failure with hypoxia Code(s): J96.01 - ACUTE RESPIRATORY FAILURE WITH HYPOXIA Current Visit: Yes Status: Acute (4) Atrial fibrillation with RVR Code(s): I48.91 - UNSPECIFIED ATRIAL FIBRILLATION Current Visit: Yes Status : Acute (5) B-cell abnormality Code(s): D72.9 - DISORDER OF WHITE BLOOD CELLS, UNSPECIFIED Current Visit: Yes Status: Acute (6) Lymphadenopathy Code(s): R59.1 - GENERALIZED ENLARGED LYMPH NODES Current Visit: Yes Status : Acute (7) Suspected malignant neoplasm Code(s): R68.89 - OTHER GENERAL SYMPTOMS AND SIGNS Current Visit: Yes Status : Acute (8) CKD (chronic kidney disease) stage 3, GFR 30-59 ml/min Code(s): N18.3 - CHRONIC KIDNEY DISEASE, STAGE 3 (MODERATE) Current Visit: No Status: Acute - Plan Plan: Rock to bedside, revisited continued decline and terminal condition. Rock agreed to transition to comfort measures. Jass RN caring for patient also at bedside. Added Ativan IVP 1 mg Notified Elisa Ocampo and Cristian. [45] minutes spent on this encounter with >50% of the time in counseling and coordination of care.
[2019-08-29 15:44] VITALS: TEMP 102
--- NOTE | 2019-08-30 03:20 | DIS ---
DATE OF ADMISSION: 08/15/2019 DATE OF DISCHARGE: 08/29/2019 DATE OF : 08/29/2019. FINAL DIAGNOSES: 1. Healthcare-associated pneumonia, organism not identified, suspected gram-negative rods. 2. Acute hypoxic respiratory failure, multifactorial. 3. Acute kidney injury on chronic kidney disease stage 3. 4. Lymphadenopathy with suspected B-cell lymphoma, advanced. 5. Hypotension. 6. Severe protein calorie malnutrition. 7. Chronic macrocytic anemia. 8. Thrombocytopenia, [id number]. CONSULTATIONS: 1. Dr. Massey and Dr. Carcamo with Neurosurgical Service, Medical Oncology Service. 2. Dr. Jay Sow with Cardiology Service. 3. Dr. Abhishek Cruz with General Surgery Service. 4. Dr. Zamudio and Dr. Foster with Pulmonology Critical Care Service. PERTINENT LABORATORY AND X-RAY FINDINGS: Potassium ranged between 2.6 to 4.5, creatinine ranged between 1.31 to 2.26, estimated GFR ranged between 21 to 40, lactic acid level 2.7, AST ranged between 36 to 181, ALT ranged between 12-42. Serum ammonia level 54. BNP 165. Carcinoembryonic antigen 5.18, CA 27-29 24.1. Vitamin B12 level 153, folate level 3.8, TSH 2.01, free T4 level 0.45. Serum cortisol level 18. CBC showed a white blood cell count ranging between 9.9 to 20.7, hemoglobin ranged between 7.3 to 9.4, platelet count ranged between 21 to 73. Her flow cytometry dated 08/21/2019, showed monoclonal B-cells consistent with B-cell lymphoproliferative disorder. Blood cultures x2 dated 08/23/2019 showed no growth at 5 days. Stool Hemoccult dated 08/18/2019 positive x1. Urine culture dated 08/23/2019 showed less than 10,000 colonies of gram-negative tracy. CT of the brain without contrast dated 08/14/2019 showed small extra-axial hematoma along the left frontal convexity. No evidence of new intracranial hemorrhage. MRI of the brain dated 08/16/2019 showed no evidence of acute intracranial abnormality. Nonspecific focal thickening of the left parietal dura versus small meningioma. 2D transthoracic echocardiogram dated 08/15/2019 showed ejection fraction of greater than 65%. Diastolic dysfunction noted. Portable chest x-ray dated 08/22/2019 showed right pleural and parenchymal changes in the right lower chest concerning for effusion or pneumonia. Abdominal radiographs dated 08/24/2019 showed Dobhoff feeding tube in the left lower lobe bronchus. Repeat chest x-ray dated 08/24/2019 showed repositioned Dobhoff feeding tube into the distal esophagus. Right upper extremity venous Doppler study dated 08/24/2019 showed no evidence of thrombus. Chest x-ray dated 08/27/2019 showed moderate right pleural effusion. HOSPITAL COURSE: The patient was initially admitted for generalized weakness, poor appetite and multiple skin nodules. The patient was noted with profound weakness and unquantitated loss of weight, presenting with questionable evidence of subdural hematoma on CT imaging of the brain. Neurosurgical consultation was obtained stating this area was suspicious for potential metastatic process and no specific evidence of hematoma. No acute surgical intervention was recommended and patient was recommended for undergoing evaluation for potential primary carcinoma. The patient was also noted with multiple areas of lymphadenopathy on clinical exam, undergoing evaluation by the primary service in addition to Medical Oncology. The patient underwent extensive metabolic workup with flow cytometry performed showing evidence of B-cell lymphoproliferative disease. The patient was unable to secure a tissue biopsy due to ongoing comorbid status, hypotension, and thrombocytopenia. The patient was treated for suspected healthcare-associated pneumonia with broad-spectrum IV antibiotic therapy, however, continued to require oxygen supplementation and declined clinically despite aggressive intervention. Due to the patient's severe protein calorie malnutrition, the patient received a feeding tube for nutritional supplementation. The patient was evaluated by Dietary Services with recommendations for ongoing protein supplementation and enteral tube feeds. Due to the patient's multiple comorbid conditions and declining status, discussions were had with Palliative Care Service regarding goals of care. The patient verbalized reluctance to pursue any aggressive measures and decided to pursue comfort and palliative care and converted to do not attempt resuscitation status. The patient continued to receive aggressive therapy throughout the entire hospital course; however despite maximal medical intervention, continued to clinically decompensate. The patient with likely advanced B-cell lymphoma based on flow cytometry results. The patient was also noted with advanced respiratory compromise due to healthcare-associated pneumonia and poor nutritional status. The family decided to pursue comfort and palliative measures at which point the patient rapidly clinically declined and on 08/29/2019 at 16:45 p.m. Family was notified of patient's and decedent affairs were notified. Job ID: [id number]
--- NOTE | 2019-09-09 07:52 | PQF ---
SEJAL VERDIN CHARLES DO [id number] [facility]- B04 [id number] CLINICAL DOCUMENTATION CLARIFICATION FORM: POST DISCHARGE Addendum to original discharge summary date: ____ Late entry note date: __ DATE: 09/09/2019 ATTN: LOLI HOLLIDAY DO Please exercise your independent, professional judgment in responding to the clarification form. Clinical indicators are provided on the bottom of this form for your review Please check appropriate box(s) to clarify if the following diagnosis has been ruled in or ruled out: SEPSIS [ ] Ruled in diagnosis [ ] Continue to treat [ ] Resolved [ ] Ruled out diagnosis [ x ] Cannot rule out diagnosis [ ] Other diagnosis [ ] Unable to determine For continuity of documentation, please document condition throughout progress notes and discharge summary. Thank You. CLINICAL INDICATORS - SIGNS / SYMPTOMS / LABS - Sepsis with acute organ dysfunction- Medical oncology PN, 08/25, Maximo Rangel - WBC: 138H on 08/22, 18.2H on 08/23, 20.7H on 08/25- Laboratory report - Temp: 102.0H on 08/29, 97.3L on 08/29- Laboratory report -Blood culturesx2 dated 08/23 showed no growth at 5 days- DS, 08/29, LOLI HOLLIDAY DO RISK FACTORS - Healthcare-associated pneumonia- DS, 08/29, LOLI HOLLIDAY DO - Acute kidney injury-DS, 08/29, LOLI HOLLIDAY DO TREATMENTS - Cefepime.IV- MAR, 08/22 to 08/29 (This form is maintained as a part of the permanent medical record) 2014 [employer]. All Rights Reserved Edward [email or web address]
--- NOTE | 2019-09-09 08:21 | PQF ---
SEJAL VERDIN CHARLES DO [id number] [facility]- B04 [id number] CLINICAL DOCUMENTATION CLARIFICATION FORM: POST DISCHARGE Addendum to original discharge summary date: ____ Late entry note date: __ DATE: 09/09/2019 ATTN: LOLI HOLLIDAY DO Please exercise your independent, professional judgment in responding to the clarification form. Clinical indicators are provided on the bottom of this form for your review Please check appropriate box(s) to clarify if the following diagnosis has been ruled in or ruled out: Type 2 IA [ ] Ruled in diagnosis [ ] Continue to treat [ ] Resolved [ x ] Ruled out diagnosis [ ] Cannot rule out diagnosis [ ] Other diagnosis [ ] Unable to determine For continuity of documentation, please document condition throughout progress notes and discharge summary. Thank You. CLINICAL INDICATORS - SIGNS / SYMPTOMS / LABS - Increased troponin likely secondary to demand ischemia, this is a type 2 IA- Consultation report, 08/15, Juanjose Thompson MD - Troponin: 0.048H on 08/22, 0.122H on 08/14- Laboratory report - Ejection fraction : >65%- Echocardiogram, 08/16 - Elevated troponin- type II- Hospital PN, 08/18, Chuck Wakefield MD RISK FACTORS - Paroxysmal atrial fibrillation- Consultation report, 08/15, Juanjose Thompson MD - Hypertension-Norvasc controlled- Hospital PN, 08/18, Chuck Wakefield MD TREATMENTS - Furosemide.IV- SEP, 08/27 - Aspirin.PO- SEP, 08/19 (This form is maintained as a part of the permanent medical record) [id number]. All Rights Reserved Edward [email or web address]
--- NOTE | 2019-09-09 08:43 | PQF ---
SEJAL VERDIN CHARLES DO [id number] [facility]- B04 [id number] CLINICAL DOCUMENTATION CLARIFICATION FORM: POST DISCHARGE Addendum to original discharge summary date: ____ Late entry note date: __ DATE:09/09/2019 ATTN:LOLI HOLLIDAY DO Please exercise your independent, professional judgment in responding to the clarification form. Clinical indicators are provided on the bottom of this form for your review Please check appropriate box(s): [ x ] Lymphoma (Anatomical Site: __chest, neck ) [ ] Other diagnosis [ ] Unable to determine For continuity of documentation, please document condition throughout progress notes and discharge summary. Thank You. CLINICAL INDICATORS - SIGNS / SYMPTOMS / LABS - Lymphoma based on flow cytometry- Progress note, 08/24, Lizz Giron MD - Pachymeningeal enhancement with thickening of the dura and subgaleal spaces possible consistent with metastatic process- Progress note, 08/24, Lizz Giron MD - Lymphadenopathy with suspected B-cell lymphoma,advanced- DS, 08/29, LOLI HOLLIDAY DO - showed monoclonal B-cells consistent with B-cell lymphoproliferative disorder -DS, 08/29, LOLI HOLLIDAY DO - the patient was also noted with multiple areas of lymphadenopathy on clinical exam-DS, 08/29, LOLI HOLLIDAY DO RISK FACTORS - B-cell lymphoproliferative disorder -DS, 08/29, LOLI HOLLIDAY DO - Thrombocytopenia, acute on chronic- DS, 08/29, LOLI HOLLIDAY DO TREATMENTS: - Oncology consult - Cytometry performed- -DS, 08/29, LOLI HOLLIDAY DO - Morphine.IV- 08/27 (This form is maintained as a part of the permanent medical record) 2014 [employer]. All Rights Reserved Edward [email or web address] [email or web address]
== END 2019-08-29 19:22 | disposition expired | DRG 840 ==
LOC: ERS 22:12 → CCU 08-15 02:16 → 2SE 08-16 13:57 → CCU 08-22 17:43 → IMCU/EMU 08-28 15:45
PROVIDERS: ADMIT Family Medicine; ATTEND Family Medicine
DX: C85.11 Unspecified B-cell lymphoma, lymph nodes of head, face, and neck (principal); J15.6 Pneumonia due to other Gram-negative bacteria; J96.01 Acute respiratory failure with hypoxia; E43 Unspecified severe protein-calorie malnutrition; A41.9 Sepsis, unspecified organism; N17.9 Acute kidney failure, unspecified; E87.2 Acidosis; N18.3 Chronic kidney disease, stage 3 (moderate); R59.1 Generalized enlarged lymph nodes; R53.81 Other malaise; I95.9 Hypotension, unspecified; I12.9 Hypertensive chronic kidney disease with stage 1 through stage 4 chronic kidney disease, or unspecified chronic kidney disease; D53.9 Nutritional anemia, unspecified; R62.7 Adult failure to thrive; D69.6 Thrombocytopenia, unspecified; Z51.5 Encounter for palliative care; C50.919 Malignant neoplasm of unspecified site of unspecified female breast; E87.6 Hypokalemia; E78.5 Hyperlipidemia, unspecified; I48.0 Paroxysmal atrial fibrillation; F17.210 Nicotine dependence, cigarettes, uncomplicated; D63.1 Anemia in chronic kidney disease; Z90.710 Acquired absence of both cervix and uterus; Z79.01 Long term (current) use of anticoagulants; Z68.24 Body mass index [BMI] 24.0-24.9, adult
CPT/HCPCS: 36415; 36416; 36430; 70450; 70553; 71045; 74018; 80048; 80053; 81001; 82140; 82274; 82378; 82533; 82553; 82607; 82746; 83605; 83735; 83880; 84100; 84145; 84439; 84443; 84484; 85007; 85025; 85027; 85060; 86300; 86850; 86900; 86901; 87040; 87086; 88184; 93306; 94640; A9579; C9113; J0692; J1160; J1450; J1940; J1956; J2060; J2270; J3370; J3475; J3480; J3490; J7050; J7070; J7620; J8540; P9016; P9035; P9047